=== PATIENT | female | born 2000 | race Hispanic/Latino ===

== ENCOUNTER 2018-04-16 21:59 | Emergency (ER) | payer SELFPAY ==
--- OUTSIDE RECORDS SUMMARY | 2018-04-16 22:02 | XMS REPORT | Clinical Summary ---
:2000 Author Organization [facility] Address [address] [place] [id number] Care Team Providers Name Role Phone Mary Anne Austin MD Primary Care Provider Allergies No Known Allergies Medications Medication Sig Dispensed Refills Start Date End Date Status levETIRAcetam Take 1,000 mg 0 Active (KEPPRA) 500 MG by mouth tablet every morning. topiramate (TOPAMAX) Take 300 mg 0 Active 100 MG tablet by mouth 2 (two) times a day. levETIRAcetam Take 1,500 mg 0 Active (KEPPRA) 500 MG by mouth tablet every evening. carBAMazepine XR Take 200 mg 0 07/06/2017 Discontinued (TEGretol XR) 200 by mouth 2 MG 12 hr tablet (two) times a day. ciprofloxacin Take 1 tablet 14 tablet 0 08/31/2017 09/07/2017 (CIPRO) 500 MG (500 mg tablet total) by mouth 2 (two) times a day for 7 days. Active Problems Not on file Encounters Date Type Specialty Care Team Description 02/23/2018 - Emergency Emergency Medicine Manoj Carlson MD Seizure (HCC ) 02/24/2018 (Primary Dx) 02/01/2018 Emergency Emergency Medicine Ezequiel Campos, Recurrent seizures DO (HCC) (Primary Dx) 01/18/2018 Emergency Emergency Medicine Zak Cormier Seizure ( Primary Dx) B., DO 12/16/2017 Emergency Emergency Medicine Garrick Jay Seizures ( Primary Dx) MD Boby 12/10/2017 - Emergency Emergency Medicine Marquise Nazario Seizure disorder 12/11/2017 Nahun Lea MD (Primary Dx) 08/30/2017 - Emergency Emergency Medicine Tyree Hurt MD Seizure ( Primary Dx); 08/31/2017 Acute cystitis without hematuria 07/13/2017 Emergency Emergency Medicine Zak Villegas Breakthrough seizure MD [place] (Primary Dx) 07/06/2017 - Emergency Emergency Medicine Brody Canela MD Seizure ( Primary Dx) 07/07/2017 after 04/15/2017 Social History Tobacco Use Types Packs/Day Years Used Date Never Smoker Smokeless Tobacco: Never Used Alcohol Use Drinks/Week oz/Week Comments No Sex Assigned at Date Recorded Not on file Job Start Date Occupation Industry Not on file Not on file Not on file Travel History Travel Start Travel End No recent travel history available. Last Filed Vital Signs Vital Sign Reading Time Taken Blood Pressure 95/51 02/23/2018 11:39 PM CDT Pulse 85 02/23/2018 11:39 PM CDT Temperature 36.2 C (97.1 F) 02/23/2018 11:39 PM CDT Respiratory Rate 16 02/23/2018 11:39 PM CDT Oxygen Saturation 99% 02/23/2018 11:39 PM CDT Inhaled Oxygen Concentration - - Weight 68.5 kg (151 lb) 02/23/2018 9:20 PM CDT Height 160 cm (5' 3") 02/23/2018 9:20 PM CDT Body Mass Index 26.75 02/23/2018 9:20 PM CDT Plan of Treatment Health Maintenance Due Date Last Done Comments CHLAMYDIA SCREENING 2014 INFLUENZA VACCINE 11/25/2017 05/30/2015 Procedures Procedure Name Priority Date/Time Associated Comments Diagnosis ESTIMATED GFR STAT 02/23/2018 10:50 Results for this PM CDT procedure are in the results section. BASIC METABOLIC PANEL STAT 02/23/2018 10:50 Results for this PM CDT procedure are in the results section. ECG 12-LEAD STAT 02/01/2018 10:24 Results for this PM CDT procedure are in the results section. ECG ED PRELIMINARY Routine 02/01/2018 10:15 Results for this INTERPRETATION PM CDT procedure are in the results section. ESTIMATED GFR STAT 01/18/2018 11:53 Results for this AM CDT procedure are in the results section. CREATINE KINASE, TOTAL STAT 01/18/2018 11:53 Results for this (CPK) AM CDT procedure are in the results section. BASIC METABOLIC PANEL STAT 01/18/2018 11:53 Results for this AM CDT procedure are in the results section. HC COMPLETE BLD COUNT STAT 01/18/2018 11:53 Results for this W/AUTO DIFF AM CDT procedure are in the results section. HCG QUALITATIVE, URINE STAT 12/16/2017 11:43 Results for this SCREEN AM CDT procedure are in the results section. URINALYSIS SCREEN AND STAT 12/16/2017 11:43 Results for this MICROSCOPY, WITH REFLEX AM CDT procedure are in TO CULTURE the results section. URINE CULTURE STAT 12/16/2017 11:43 Results for this AM CDT procedure are in the results section. ZZESTIMATED GFR STAT 12/16/2017 11:38 Results for this AM CDT procedure are in the results section. LIPASE LEVEL STAT 12/16/2017 11:38 Results for this AM CDT procedure are in the results section. LACTIC ACID LEVEL, STAT 12/16/2017 11:38 Results for this SEPSIS - NOW AND REPEAT AM CDT procedure are in 2X EVERY 3 HOURS the results section. HEPATIC FUNCTION PANEL STAT 12/16/2017 11:38 Results for this AM CDT procedure are in the results section. BASIC METABOLIC PANEL STAT 12/16/2017 11:38 Results for this AM CDT procedure are in the results section. HC COMPLETE BLD COUNT STAT 12/16/2017 11:38 Results for this W/AUTO DIFF AM CDT procedure are in the results section. HCG QUALITATIVE, URINE Routine 12/10/2017 10:59 Results for this SCREEN PM CDT procedure are in the results section. URINALYSIS SCREEN AND Routine 12/10/2017 10:59 Results for this MICROSCOPY, WITH REFLEX PM CDT procedure are in TO CULTURE the results section. GRAM STAIN Routine 12/10/2017 10:59 Results for this PM CDT procedure are in the results section. URINE CULTURE Routine 12/10/2017 10:59 Results for this PM CDT procedure are in the results section. XR CHEST 1 VW PORTABLE STAT 12/10/2017 10:16 Results for this PM CDT procedure are in the results section. ECG 12-LEAD STAT 12/10/2017 9:55 Results for this PM CDT procedure are in the results section. ECG ED PRELIMINARY Routine 12/10/2017 9:44 Results for this INTERPRETATION PM CDT procedure are in the results section. ZZESTIMATED GFR STAT 12/10/2017 9:38 Results for this PM CDT procedure are in the results section. B NATRIURETIC PEPTIDE STAT 12/10/2017 9:38 Results for this PM CDT procedure are in the results section. TROPONIN STAT 12/10/2017 9:38 Results for this PM CDT procedure are in the results section. COMPREHENSIVE METABOLIC STAT 12/10/2017 9:38 Results for this PANEL PM CDT procedure are in the results section. HC COMPLETE BLD COUNT STAT 12/10/2017 9:38 Results for this W/AUTO DIFF PM CDT procedure are in the results section. URINALYSIS, AUTOMATED STAT 08/30/2017 11:54 Results for this WITH MICROSCOPY PM CDT procedure are in the results section. ZZESTIMATED GFR STAT 08/30/2017 10:30 Results for this PM CDT procedure are in the results section. HCG QUANTITATIVE, SERUM STAT 08/30/2017 10:30 Results for this PM CDT procedure are in the results section. COMPREHENSIVE METABOLIC STAT 08/30/2017 10:30 Results for this PANEL PM CDT procedure are in the results section. HC COMPLETE BLD COUNT STAT 08/30/2017 10:30 Results for this W/AUTO DIFF PM CDT procedure are in the results section. GFR CALCULATION STAT 08/30/2017 10:20 Results for this PM CDT procedure are in the results section. HCG QUALITATIVE, URINE Routine 07/13/2017 10:34 Results for this SCREEN AM CDT procedure are in the results section. URINALYSIS SCREEN AND Routine 07/13/2017 10:34 Results for this MICROSCOPY, WITH REFLEX AM CDT procedure are in TO CULTURE the results section. GRAM STAIN Routine 07/13/2017 10:34 Results for this AM CDT procedure are in the results section. URINE CULTURE Routine 07/13/2017 10:34 Results for this AM CDT procedure are in the results section. ZZESTIMATED GFR STAT 07/13/2017 10:11 Results for this AM CDT procedure are in the results section. MAGNESIUM LEVEL STAT 07/13/2017 10:11 Results for this AM CDT procedure are in the results section. COMPREHENSIVE METABOLIC STAT 07/13/2017 10:11 Results for this PANEL AM CDT procedure are in the results section. GFR CALCULATION STAT 07/13/2017 9:53 Results for this AM CDT procedure are in the results section. POC GLUCOSE Routine 07/07/2017 12:25 Results for this AM CDT procedure are in the results section. HCG QUALITATIVE, URINE Routine 07/06/2017 11:55 Results for this SCREEN PM CDT procedure are in the results section. URINALYSIS SCREEN AND Routine 07/06/2017 11:55 Results for this MICROSCOPY, WITH REFLEX PM CDT procedure are in TO CULTURE the results section. URINE CULTURE STAT 07/06/2017 11:55 Results for this PM CDT procedure are in the results section. GRAM STAIN STAT 07/06/2017 11:55 Results for this PM CDT procedure are in the results section. ECG 12-LEAD STAT 07/06/2017 11:47 Results for this PM CDT procedure are in the results section. ECG ED PRELIMINARY Routine 07/06/2017 11:22 Results for this INTERPRETATION PM CDT procedure are in the results section. after 04/15/2017 Results Estimated GFR (02/23/2018 10:50 PM CDT)Only the most recent of2 resultswithin the time period is included. Estimated GFR >=90 mL/min/1.73 m2 [facility] Comment: PATHOLOGY AND GENOMIC CatergoryUnitsInterpretation MEDICINE G1 >=90 Normal or high G2 60-89Mildly decreased [id number] to moderately decreased [id number] to severely decreased G4 15-29Severely decreased G5 <15Kidney failure The eGFR was calculated using the Chronic Kidney Disease Epidemiology Collaboration (CKD-EPI) equation. Interpretation is based on recommendations of the National Kidney Foundation-Kidney Disease Outcomes Quality Initiative (NKF-KDOQI) published in 2014. Specimen Plasma specimen Performing Organization Address City/State/Zipcode Phone Number [facility] AND [facility] [place] [address] [facility] Basic metabolic panel (02/23/2018 10:50 PM CDT)Only the most recent of3 resultswithin the time period is included. Sodium 142 135 - 150 mEq/L [facility] AND GENOMIC MEDICINE Potassium 3.2 (L) 3.5 - 5.0 mEq/L [facility] AND GENOMIC MEDICINE Chloride 109 98 - 112 mEq/L [facility] AND GENOMIC MEDICINE CO2 22 (L) 24 - 31 mmol/L [facility] AND GENOMIC MEDICINE Anion gap 11@ANIO 7 - 15 mEq/L [facility] AND GENOMIC MEDICINE BUN 13 7 - 18 mg/dL [facility] AND GENOMIC MEDICINE Creatinine 0.60 0.50 - 0.90 mg/dL [facility] AND GENOMIC MEDICINE Glucose 100 65 - 100 mg/dL [facility] AND GENOMIC MEDICINE Calcium 8.5 8.3 - 10.2 mg/dL [facility] AND GENOMIC MEDICINE Specimen Plasma specimen Performing Organization Address City/[facility] Phone Number [facility] AND [address] [place] [id number] [facility] ECG 12 lead (02/01/2018 10:24 PM CDT)Only the most recent of3 resultswithin the time period is included. Ventricular rate 117 [facility] Atrial rate 117 [facility] NH interval 152 [facility] QRSD interval 88 [facility] QT interval 328 [facility] QTC interval 457 [facility] P axis 1 58 [facility] QRS axis 1 12 [facility] T wave axis 48 [facility] EKG impression Sinus tachycardia-Possible Left atrial enlargement-RSR' or QR pattern in V1 suggests right ventricular conduction delay-Borderline ECG-In automated comparison with ECG of 10-DEC-2017 21:55,-No significa [facility]USE nt change was found- Performing Organization Address [facility] Phone Number [facility] MUSE [address] [place] [address] ECG ED Preliminary Interpretation - NOT AN ORDER (02/01/2018 10:15 PM CDT)Only the most recent of3 resultswithin the time period is included. Narrative Performed At Ezequiel Campos DO 02/01/2018 11:39 PM ECG ED Preliminary Interpretation - Not an Order Performed by: EZEQUIEL CAMPOS Authorized by: EZEQUIEL CAMPOS ECG reviewed by ED Physician in the absence of a stockholder: yes Interpretation: Interpretation: abnormal Rate: ECG rate:117 ECG rate assessment: tachycardic Rhythm: Rhythm: sinus tachycardia Ectopy: Ectopy: none QRS: QRS axis:Normal Conduction: Conduction: normal ST segments: ST segments:Normal T waves: T waves: normal CBC with platelet and differential (01/18/2018 11:53 AM CDT)Only the most recent of4 resultswithin the time period is included. WBC 6.3 4.5 - 12.5 k/uL [facility]OMIC MEDICINE RBC 4.90 4.04 - 5.86 m/uL [facility] GENOMIC MEDICINE HGB 13.4 11.5 - 15.3 g/dL [facility] AND GENOMIC MEDICINE HCT 41.0 34.0 - 45.0 % [facility] AND GENOMIC MEDICINE MCV 83.7 80.0 - 98.0 fL [facility] AND GENOMIC MEDICINE MCH 27.3 27.0 - 34.0 pg [facility] AND GENOMIC MEDICINE MCHC 32.7 31.5 - 36.5 g/dL [facility] AND GENOMIC MEDICINE RDW - SD 39.4 37.0 - 51.0 fL [facility] AND GENOMIC MEDICINE MPV 11.1 (H) 7.4 - 10.4 fL [facility] AND GENOMIC MEDICINE Platelet count 224 150 - 400 k/uL [facility] AND GENOMIC MEDICINE Nucleated RBC 0.00 /100 WBC [facility] AND GENOMIC MEDICINE Neutrophils 60.8 36.0 - 66.0 % [facility] AND GENOMIC MEDICINE Lymphocytes 25.0 24.0 - 44.0 % [facility] AND GENOMIC MEDICINE Monocytes 8.0 (H) 0.0 - 6.0 % [facility] AND GENOMIC MEDICINE Eosinophils 4.8 0.0 - 6.0 % [facility] AND GENOMIC MEDICINE Basophils 1.1 0.0 - 1.2 % [facility] AND GENOMIC MEDICINE Immature granulocytes 0.3 0.0 - 1.0 % [facility] AND GENOMIC MEDICINE Specimen Blood Performing Organization Address City/State/Zipcode Phone Number [facility] AND [address] [place] [address] [facility] Creatine kinase, total (CPK) (01/18/2018 11:53 AM CDT) Creatine kinase 61 26 - 192 U/L [facility] AND GENOMIC MEDICINE Specimen Plasma specimen Performing Organization Address City/State/Zipcode Phone Number [facility] OF PATHOLOGY AND [address] [place] [address] [facility] Urinalysis screen and microscopy, with reflex to culture (12/16/2017 11:43 AM CDT)Only the most recent of4 resultswithin the time period is included. Specimen site Clean catch [facility] AND GENOMIC MEDICINE Color, UA Yellow [facility] AND GENOMIC MEDICINE Appearance, UA Clear [facility] AND GENOMIC MEDICINE Specific gravity, UA 1.023 1.001 - 1.035 [facility] AND GENOMIC MEDICINE pH, UA 6.0 5.0 - 8.5 [facility] AND GENOMIC MEDICINE Protein, UA Negative Negative [facility] AND GENOMIC MEDICINE Glucose, UA Negative Negative [facility] AND GENOMIC MEDICINE Ketones, UA Negative Negative [facility]OLOGY AND GENOMIC MEDICINE Bilirubin, UA Negative Negative [facility]OLOGY AND GENOMIC MEDICINE Blood, UA Negative Negative [facility]Y AND GENOMIC MEDICINE Nitrite, UA Negative Negative [facility] AND GENOMIC MEDICINE Urobilinogen, UA Negative <2.0 [facility] AND GENOMIC MEDICINE Leukocyte esterase, UA Negative Negative [facility]OLOGY AND GENOMIC MEDICINE Epithelial cells, UA Few /HPF [facility] AND GENOMIC MEDICINE WBC, UA 2 0 - 5 /HPF [facility]OLOGY AND GENOMIC MEDICINE RBC, UA <1 0 - 5 /HPF [facility]OLOG[facility] AND GENOMIC MEDICINE Bacteria, UA None seen None seen [facility]OLOGY AND GENOMIC MEDICINE Yeast, UA None seen [facility]OLOGY AND GENOMIC MEDICINE Yeast with pseudohyphae, UA None seen [facility]OLOGY AND GENOMIC MEDICINE Specimen Urine Narrative Performed At CALLED TO OSMANY MOCTEZUMA [facility] AND GENOMIC @[id number] [facility] ?Specimen must be received in the laboratory within 2 hours of ?collection. ?Specimen Source->Urine Performing Organization Address City/State/Zipcode Phone Number [facility]Y AND [address] [place] [address] [facility] hCG qualitative, urine screen (12/16/2017 11:43 AM CDT)Only the most recent of4 resultswithin the time period is included. hCG qualitative, urine Negative Negative [facility] Comment: PATHOLOGY AND GENOMIC The manufacturers stated sensitivity of HcG test for serum is >/=10 MEDICINE mIU/ml and urine is >/=20mIU/ml. Specimen Urine Narrative Performed At CALLED TO OSMANY MOCTEZUMA [facility]OLOGY AND GENOMIC @12: [facility] ?Specimen must be received in the laboratory within 2 hours of ?collection. ?Specimen Source->Urine Performing Organization Address City/[facility]/Zipcode Phone Number [facility]Y AND [address] [place], [place] [phone] [place] [address] Urine culture (12/16/2017 11:43 AM CDT)Only the most recent of4 resultswithin the time period is included. Urine culture SEE COMMENTComment: Bacteriuria [facility] PATHOLOGY screen negative. AND GENOMIC MEDICINE Narrative Performed At CALLED TO OSMANY MOCTEZUMA [facility] AND GENOMIC @12: [facility] ?Specimen must be received in the laboratory within 2 hours of ?collection. ?Specimen Source->Urine Performing Organization Address City/[facility]/Zipcode Phone Number [facility]OLOGY AND [address] [place], [place] [phone] [place] [address] Lactic acid level, SEPSIS - Now and repeat 2x every 3 hours (12/16/2017 11:38 AM CDT) Lactic acid 2.2 0.5 - 2.2 mmol/L [facility] AND GENOMIC MEDICINE Specimen Blood Performing Organization Address City/[facility]/Zipcode Phone Number [facility]OLOGY AND [address] [place] [address] [facility] Estimated GFR (12/16/2017 11:38 AM CDT)Only the most recent of4 resultswithin the time period is included. GFR Non Af Amer >90 mL/min/1.73 m2 [facility] AND GENOMIC MEDICINE GFR Af Amer >90 mL/min/1.73 m2 [facility] Comment: PATHOLOGY AND GENOMIC Chronic kidney disease: <60 mL/min/1.73m2 MEDICINE Kidney failure: <15 mL/min/1.73m2 The estimated GFR is calculated from the IDMS-traceable Modification of Diet in Renal Disease Equation. The accuracy of the calculation is poor when the creatinine is normal. Calculated values >90 mL/min/1.73m2 are not reported. This equation has not been validated in children (<18 years), women, the elderly (>70 years), or ethnic groups other than Caucasians and Americans. Specimen Plasma specimen Performing Organization Address City/[facility] Phone Number [facility] AND [address] [facility] [address] [place] [address] [facility] Lipase level (12/16/2017 11:38 AM CDT) Lipase 27 13 - 60 U/L [facility]OLOGY AND GENOMIC MEDICINE Specimen Plasma specimen Performing Organization Address [facility] Phone Number [facility]OLOGY AND [address] [place] [address] [facility] Hepatic function panel (12/16/2017 11:38 AM CDT) Albumin 3.9 3.5 - 5.0 g/dL [facility]OLOGY AND GENOMIC MEDICINE Total bilirubin 0.3 0.2 - 1.2 mg/dL [facility]OLOGY AND GENOMIC MEDICINE Bilirubin direct <0.2 0.0 - 0.4 mg/dL [facility]OLOGY AND GENOMIC MEDICINE Alkaline phosphatase 74 0 - 104 U/L [facility]OLOGY AND GENOMIC MEDICINE Protein 7.4 6.3 - 8.3 g/dL [facility] AND GENOMIC MEDICINE ALT 13 5 - 50 U/L [facility]OLOGY AND GENOMIC MEDICINE AST 17 10 - 35 U/L [facility]OLOGY AND GENOMIC MEDICINE Specimen Plasma specimen Performing Organization Address [facility] Phone Number [facility]Y AND [address] [facility] [address] [place] [address] [facility] Gram stain (12/10/2017 10:59 PM CDT)Only the most recent of3 resultswithin the time period is included. Gram stain result No WBC's or organisms seen. [facility] DEPARTMENT OF PATHOLOGY Comment: AND GENOMIC MEDICINE Specimen Information Specimen Source: Urine Specimen Site: Clean catch Specimen Urine Performing Organization Address City/[facility]/Zipcode Phone Number [facility] DEPARTMENT OF PATHOLOGY AND [address] [place] [address] GENOMIC MEDICINE XR Chest 1 Vw Portable (12/10/2017 10:16 PM CDT) Narrative Performed At EXAMINATION:XR CHEST 1 VW PORTABLE [facility] CLINICAL HISTORY:seizure COMPARISON:04/11/2014 IMPRESSION: Mild prominence of pulmonary interstitial lung markings is suspicious for mild edema or atypical infection. No effusions or pneumothorax. Cardiomediastinal silhouette is within normal limits. No acute osseous abnormalities. [facility]-[id number] Procedure Note Hm Interface, Radiology Results Incoming - 12/10/2017 10:28 PM CDT EXAMINATION: XR CHEST 1 VW PORTABLE CLINICAL HISTORY: seizure COMPARISON: 04/11/2014 IMPRESSION: Mild prominence of pulmonary interstitial lung markings is suspicious for mild edema or atypical infection. No effusions or pneumothorax. Cardiomediastinal silhouette is within normal limits. No acute osseous abnormalities. [facility]-[id number] Performing Organization Address City/[facility]/Zipcode Phone Number [facility] [address] [place] [address] Troponin (12/10/2017 9:38 PM CDT) Troponin <0.30 0.00 - 0.30 ng/mL [facility]OLOGY Comment: AND GENOMIC MEDICINE 0.11 - 1.49 ng/mlMay indicate increased risk of acute coronary syndrome. >=1.5 ng/mlConsistent with acute myocardial infarction. The diagnostic value of a single normal or non-diagnostic result is questionable.Serial samples at 2-6 hour intervals are required to rule out acute myocardial injury. Specimen Plasma specimen Performing Organization Address [facility] Phone Number [facility] OF PATHOLOGY AND [address] [place] [address]. [place], [place] [id number] [place] [address] B natriuretic peptide (12/10/2017 9:38 PM CDT) BNP 9 0 - 100 pg/mL [facility]OM[facility] MEDICINE Specimen Blood Performing Organization Address [facility] Cent[facility]ode Phone Number [facility] AND [address] [place] [address]. [place], [place] [id number] [place] [address] Comprehensive metabolic panel (12/10/2017 9:38 PM CDT)Only the most recent of3 resultswithin the time period is included. Sodium 143 135 - 150 mEq/L [facility]IC[facility] Potassium 3.7 3.5 - 5.0 mEq/L [facility]IC[facility] Chloride 110 98 - 112 mEq/L [facility]IC[facility] CO2 18 (L) 24 - 31 mmol/L [facility] GENOMIC MEDICINE Anion gap 15@ANIO 7 - 15 mEq/L [facility]IC[facility] BUN 7 7 - 18 mg/dL [facility]ICINE Creatinine 0.60 0.50 - 0.90 mg/dL [facility]ICINE Glucose 101 (H) 65 - 100 mg/dL [facility]ICINE Calcium 8.9 8.3 - 10.2 mg/dL [facility] MEDICINE Protein 7.1 6.3 - 8.3 g/dL [facility] MEDICINE Albumin 3.7 3.5 - 5.0 g/dL [facility]OM[facility] MEDICINE A/G ratio 1.1 0.7 - 3.8 [facility] MEDICINE Alkaline phosphatase 74 0 - 104 U/L [facility]OM[facility] MEDICINE AST 15 10 - 35 U/L [facility]OMIC MEDICINE ALT 11 5 - 50 U/L [facility] GENOMIC MEDICINE Total bilirubin <0.3 0.2 - 1.2 mg/dL [facility]OMIC MEDICINE Specimen Plasma specimen Performing Organization Address City/State/Zipcode Phone Number [facility] AND [facility] [place] [address] [facility] Urinalysis, automated with microscopy (08/30/2017 11:54 PM CDT) Color, UA Yellow [facility] DEPARTMENT OF PATHOLOGY AND GENOMIC MEDICINE Appearance, UA Slightly-Cloudy [facility] DEPARTMENT OF PATHOLOGY AND GENOMIC MEDICINE Specific gravity, UA 1.019 1.001 - 1.035 [facility] DEPARTMENT OF PATHOLOGY AND GENOMIC MEDICINE pH, UA 6.0 5.0 - 8.5 [facility] DEPARTMENT OF PATHOLOGY AND GENOMIC MEDICINE Protein, UA Negative Negative [facility] DEPARTMENT OF PATHOLOGY AND GENOMIC MEDICINE Glucose, UA Negative Negative [facility] DEPARTMENT OF PATHOLOGY AND GENOMIC MEDICINE Ketones, UA Negative Negative [facility] DEPARTMENT OF PATHOLOGY AND GENOMIC MEDICINE Bilirubin, UA Negative Negative [facility] DEPARTMENT OF PATHOLOGY AND GENOMIC MEDICINE Blood, UA Negative Negative [facility] DEPARTMENT OF PATHOLOGY AND GENOMIC MEDICINE Nitrite, UA Negative Negative [facility] DEPARTMENT OF PATHOLOGY AND GENOMIC MEDICINE Urobilinogen, UA Negative <2.0 [facility] DEPARTMENT OF PATHOLOGY AND GENOMIC MEDICINE Leukocyte esterase, UA Trace (A) Negative [facility] DEPARTMENT OF PATHOLOGY AND GENOMIC MEDICINE Epithelial cells, UA Many /HPF [facility] DEPARTMENT OF PATHOLOGY AND GENOMIC MEDICINE Round epithelial cells, UA Few 0 - 1 /HPF [facility] DEPARTMENT OF PATHOLOGY AND GENOMIC MEDICINE WBC, UA 11-20 (H) 0 - 4 /HPF [facility] DEPARTMENT OF PATHOLOGY AND GENOMIC MEDICINE RBC, UA 6-10 (H) 0 - 5 /HPF [facility] DEPARTMENT OF PATHOLOGY AND GENOMIC MEDICINE Bacteria, UA Trace None seen [facility] DEPARTMENT OF PATHOLOGY AND GENOMIC MEDICINE Yeast, UA None seen [facility] DEPARTMENT OF PATHOLOGY AND GENOMIC MEDICINE Yeast with pseudohyphae, UA None seen [facility] DEPARTMENT OF PATHOLOGY AND GENOMIC MEDICINE Specimen Urine Performing Organization Address [facility] Centerconm Phone Number [facility] DEPARTMENT OF PATHOLOGY AND [id number] [place] [address] [address] [place] [place] hCG quantitative, serum (08/30/2017 10:30 PM CDT) hCG quantitative, serum <0 0 - 5 mIU/mL [facility] DEPARTMENT OF Comment: PATHOLOGY AND GENOMIC Reference range for HCG Quant applies to males and non- MEDICINE females. Post Menopausal 0.0 - 8.1 mIU/mL Specimen Plasma specimen Performing Organization Address [facility] Centercode Phone Number [facility] DEPARTMENT OF PATHOLOGY AND [id number] [place] [address] [place] [address] [facility] GFR calculation (08/30/2017 10:20 PM CDT)Only the most recent of2 resultswithin the time period is included. GFR calculation See BelowComment: GFR not [facility] DEPARTMENT OF PATHOLOGY valid on patients less than AND [facility] 18 years of age. Specimen Plasma specimen Performing Organization Address City/[facility] Centercode Phone Number [facility] DEPARTMENT OF PATHOLOGY AND [id number] [place] [address] [place] [address] [facility] Magnesium level (07/13/2017 10:11 AM CDT) Magnesium 2.20 1.60 - 2.40 mg/dL [facility]OMIC MEDICINE Specimen Plasma specimen Performing Organization Address City/[facility] Centercode Phone Number [facility]Y AND [address] [place] [address] [facility] POC glucose (07/07/2017 12:25 AM CDT) POC glucose 130 (H) 65 - 100 mg/dL [facility]OLOGY Comment: AND GENOMIC MEDICINE Meter ID: [id number] Continuing Education Instructor: Xavier Womack Performing Organization Address City/State/Zipcode Phone Number [facility] OF [facility]OLOGY AND [facility] [place] [address] GENOMIC MEDICINE after 04/15/2017 Advance Directives Patient has advance care planning documents on file. For more information, please contact:Vinny Crow[address] [place] [id number]
--- OUTSIDE RECORDS SUMMARY | 2018-04-16 22:03 | XMS REPORT ---
:2000 Author Organization [facility] Address Unavailable , Allergies, Adverse Reactions, Alerts Allergy Name Reaction Description Start Date Severity Status Provider No Known Allergies Myla Wallace PMHNP Conditions or Problems Problem Name Problem Onset Status Entry Provider Comment Standard Annotate Code Date Date Description BMI Active Bessy Body Mass 26.0-26.9 / Isak MACK Index (res) 26.0-26.9, adult Overweight Active Bessy Overweight / Isak MACK (res) Seizure 780.39 Active Bessy Other disorder / Isak MACK convulsions (res) Viral 079.99 Active Bessy Unspecified syndrome / Isak MACK viral (res) infection ANXIETY Active Myla Anxiety DISORDER, / Wallace disorder in D/T ANOT MED PMHNP conditions COND classified elsewhere PANIC Inactive Myla Panic DISORDER / 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 PANIC DISORDER Inactive Myla Wallace PMHNP Medication List Medication Instructions Start Stop Generic NDC Status Provider Patient Date Date Name Instruction GABAPENTIN Take 1 GABAPENTIN 39211535750 Active Myla Active 300 MG ORAL tablet By Wallace CAPSULE Mouth BID PMHNP ONDANSETRON 1 tab By 2 ONDANSETRON 76247231163 Active Bessy Active HCL 4 MG ORAL Mouth q6h 0 HCL Isak MACK TABLET As Needed 1 (res) nausea 8 / 1 1 / 0 9 TEMAZEPAM 15 Take 1 TEMAZEPAM 34596512232 Active Myla Active MG ORAL tablet By Wallace CAPSULE Mouth QHS PMHNP As Needed for insomnia KEPPRA 1000 BID LEVETIRACETAM 85664323122 Active Myla Active MG ORAL Wallace TABLET PMHNP TOPAMAX 300 mg TOPIRAMATE 50475600673 Active Myla Active TABLET BID TABS Wallace PMHNP ATIVAN 0.5 MG Take 1 LORAZEPAM 24139519815 Active Myla Active ORAL TABLET tablet By Wallace Mouth BID PMHNP As Needed for anxiety Vital Signs Date Name Value Unit Range Description blood pressure, diastolic 72 mm[Hg] BP gay blood pressure, systolic 99 mm[Hg] BP sys height E&M 64 [in_us] Bdy height pulse rate E&M 85 /min Heart rate weight E&M 154 [lb_av] Weight Measured blood pressure, diastolic 67 mm[Hg] BP gay blood pressure, systolic 93 mm[Hg] BP sys height E&M 64 [in_us] Bdy height pulse rate E&M 115 /min Heart rate respiratory rate E&M 20 /min Resp rate temperature E&M 98.3 [degF] Body temperature weight E&M 151.40 [lb_av] Weight Measured blood pressure, diastolic 73 mm[Hg] BP gay blood pressure, systolic 104 mm[Hg] BP sys height E&M 64 [in_us] Bdy height pulse rate E&M 78 /min Heart rate weight E&M 153.40 [lb_av] Weight Measured blood pressure, diastolic 75 mm[Hg] BP gay blood pressure, systolic 113 mm[Hg] BP sys height E&M 64 [in_us] Bdy height pulse rate E&M 98 /min Heart rate weight E&M 145.40 [lb_av] Weight Measured blood pressure, diastolic 70 mm[Hg] BP gay blood pressure, systolic 104 mm[Hg] BP sys height E&M 64 [in_us] Bdy height pulse rate E&M 90 /min Heart rate weight E&M 147.40 [lb_av] Weight Measured Encounters Date Encounter Provider Code Facility Est Patient Exp Myla Wallace CPT-27104 [facility] 13:55:59 CDT Problem - 94098 PMHNP Behavioral [facility] Est Patient Exp Bessy Parisi MD CPT-55960 [facility] 11:46:05 CDT Problem - 42978 (res) Practice Est Patient Exp Myla Wallace CPT-15825 [facility] 10:59:44 CDT Problem - 74858 PMHNP Behavioral Health Est Patient Exp Myla Wallace CPT-59828 [facility] 17:38:22 CDT Problem - 58571 PMHNP Behavioral Health Procedures Code Procedure Name Date Entry Date Standard Description [id number] Diagnostic evaluation with medical - 69188 11:57:40 CDT
[2018-04-16 22:33] LABS: Absolute Lymphocytes (CBC) 2.1 K/uL (0.7-4.9); Absolute Monocytes 0.6 K/uL (0.1-1.3); Absolute Neutrophil 5.5 K/uL (1.8-8.0); Basophils % 0.7 % (0-1.3); Eosinophils % 3.6 % (0-4.4); Hematocrit 38.3 % (36.0-45.0); Lymphocytes % 24.8 % (15.3-44.8); MPV 9.2 fL (7.6-11.3); Monocytes % 6.6 % (3.3-12.3)
[2018-04-16 22:40] LABS: Protime INR 1.06
[2018-04-16 22:50] LABS: ALT/SGPT 17 U/L (12-78); AST/SGOT 6 U/L (15-37); Albumin 3.6 g/dL (3.4-5.0); Alkaline Phosphatase 83 U/L (45-117); BUN Blood Urea Nitrogen 13 mg/dL (7-18); Bicarbonate 21 mmol/L (21-32); Bilirubin Direct 0.1 mg/dL (0-0.2); Bilirubin Total 0.3 mg/dL (0.2-1.0); Glucose Level 103 mg/dL (74-106); Potassium 3.5 mmol/L (3.5-5.1); Protein, Total 7.1 g/dL (6.4-8.2); Sodium Level 143 mmol/L (136-145)
[2018-04-17 00:41] LABS: Barbiturates NEGATIVE (NEGATIVE); Benzodiazepines NEGATIVE (NEGATIVE); Cocaine NEGATIVE (NEGATIVE); METHAMPHETAM NEGATIVE (NEGATIVE); Methadone NEGATIVE (NEGATIVE); Opiates NEGATIVE (NEGATIVE); Phencyclidine NEGATIVE (NEGATIVE); THC Cannibis NEGATIVE (NEGATIVE)
[2018-04-17 00:41] LABS: Urine Blood NEGATIVE (NEG); Urine Glucose NEGATIVE (NEG); Urine Protein NEGATIVE (NEG); Urine Specific Gravity 1.015 (1.005-1.030)
--- NOTE | 2018-04-17 00:55 | ER ---
Nurse's Notes [facility] Name: Saloni Malin Age: 17 yrs Sex: Female : 2000 Arrival Date: 04/16/2018 Time: 22:00 Bed 7 Private MD: Diagnosis: Epilepsy and recurrent seizures Presentation: 04/16 22:01 Presenting complaint: EMS states: Pt had seizure 20 minutes [facility] FARM[facility], pt is currently post tl2 ictal, is AOx3 is slightly slow to respond but answers questions appropriately. Transition of care: patient was not received from another setting of care. Onset of symptoms was April 16, 2018 at 21:30. Risk Assessment: Do you want to hurt yourself or someone else? Patient reports no desire to harm self or others. Initial Sepsis Screen: Does the patient meet any 2 criteria? No. Patient's initial sepsis screen is negative. Does the patient have a suspected source of infection? No. Patient's initial sepsis screen is negative. Care prior to arrival: None. 22:01 Method Of Arrival: EMS: [facility] tl2 22:01 Acuity: KEVAN 3 tl2 Triage Assessment: 22:03 General: Appears in no apparent distress. comfortable, Behavior is calm, cooperative, tl2 appropriate for age. Pain: Denies pain. Neuro: Level of Consciousness is awake, alert, obeys commands, Oriented to person, place, time, situation. Cardiovascular: Denies chest pain. Respiratory: Airway is patent Respiratory effort is even, unlabored, Respiratory pattern is regular, symmetrical. GI: No signs and/or symptoms were reported involving the gastrointestinal system. : No signs and/or symptoms were reported regarding the genitourinary system. Derm: Skin is pink, warm \T\ dry. Historical: - Allergies: 22:03 No Known Allergies; tl2 - Home Meds: 22:15 Keppra Oral [Active]; Temazepam Oral [Active]; topiramate oral oral [Active]; tl2 gabapentin oral oral [Active]; - PMHx: 22:15 Seizures; Panic Attacks; tl2 - Immunization history:: Adult Immunizations up to date. - Social history:: Smoking status: Patient/guardian denies using tobacco. - Ebola Screening: : No symptoms or risks identified at this time. Screenin:05 Abuse screen: Denies threats or abuse. Nutritional screening: No deficits noted. tl2 Tuberculosis screening: No symptoms or risk factors identified. Fall Risk Gait- Impaired (20 pts.). Assessment: 22:03 General: see triage assessment. tl2 23:11 Reassessment: Patient appears in no apparent distress at this time. Patient and/or tl2 family updated on plan of care and expected duration. Pain level reassessed. Patient is alert, oriented x 3, equal unlabored respirations, skin warm/dry/pink. 04/17 00:23 Reassessment: Patient appears in no apparent distress at this time. Patient and/or tl2 family updated on plan of care and expected duration. Pain level reassessed. Patient is alert, oriented x 3, equal unlabored respirations, skin warm/dry/pink. 01:10 Reassessment: Patient appears in no apparent distress at this time. Patient and/or tl2 family updated on plan of care and expected duration. Pain level reassessed. Patient is alert, oriented x 3, equal unlabored respirations, skin warm/dry/pink. pt verbalized understanding of discharge instructions and need for follow up Patient states feeling better. Vital Signs: 04/16 22:03 BP 100 / 70; Pulse 121; Resp 18; Temp 99(O); Pulse Ox 100% on R/A; Weight 46.27 kg; tl2 Height 5 ft. 3 in. (160.02 cm); Pain 0/10; 23:10 BP 100 / 71; Pulse 91; Resp 18; Pulse Ox 97% on R/A; tl2 12 00:23 BP 92 / 56; Pulse 88; Resp 18; Pulse Ox 98% on R/A; tl2 01:10 BP 91 / 69; Pulse 82; Resp 18; Pulse Ox 97% on R/A; tl2 04/16 22:03 Body Mass Index 18.07 (46.27 kg, 160.02 cm) tl2 [place] Score: 04/16 22:03 Eye Response: spontaneous(4). Verbal Response: oriented(5). Motor Response: obeys tl2 commands(6). Total: 15. ED Course: 22:00 Patient arrived in ED. tl2 22:03 Triage completed. tl2 22:03 Arm band placed on right wrist. tl2 22:04 Henry Zee PA is PHCP. cp 22:04 Henry Hayes MD is Attending Physician. cp 22:05 Patient has correct armband on for positive identification. Bed in low position. Call tl2 light in reach. Side rails up X2. Seizure precautions initiated. 22:16 Inserted saline lock: 20 gauge in right antecubital area, using aseptic technique. tl2 Blood collected. placed by blanka Sheikh. 23:01 Acetaminophen Sent. mw2 23:01 Basic Metabolic Panel Sent. mw2 04/17 00:23 Makeda Tucker, RN is Primary Nurse. tl2 00:54 Teddy Ambrosio MD is Referral Physician. cp 01:10 No provider procedures requiring assistance completed. IV discontinued, intact, tl2 bleeding controlled, No redness/swelling at site. Pressure dressing applied. Administered Medications: No medications were administered Outcome: 00:55 Discharge ordered by MD. cp 01:10 Discharged to home ambulatory, with family. tl2 01:10 Condition: stable 01:10 Discharge instructions given to patient, family, Instructed on discharge instructions, follow up and referral plans. Demonstrated understanding of instructions, follow-up care. 01:12 Patient left the ED. tl2 Signatures: Henry Zee, MAYRA PA cp Makeda Tucker RN RN tl2 Giuliano Key mw2 Corrections: (The following items were deleted from the chart) 04/16 22:16 22:03 Home Meds: None; tl2 tl2 22:16 22:03 PMHx: None; tl2 tl2
--- NOTE | 2018-04-17 00:55 | EDPHYS ---
Physician Documentation [facility] Name: Saloni Malin Age: 17 yrs Sex: Female : 2000 Arrival Date: 04/16/2018 Time: 22:00 Bed 7 Private MD: ED Physician Henry Hayes HPI: 04/16 22:09 This 17 yrs old Female presents to ER via EMS with complaints of Probable Seizure. cp 22:10 The patient presents after having a single isolated seizure, that lasted 2 minute(s), cp the episode(s) was witnessed, by family, sister. Character of seizure(s): Loss of consciousness: the patient experienced loss of consciousness, Motor activity: generalized, shaking all over. Seizure onset: today, at 21:15. Context: occurred at home, occurred while the patient was in bathroom. Contributing factors: unknown. 22:10 Seizure Hx: Seizure medications: Keppra, topiramate. cp 22:10 Associated injury: The patient did not suffer any apparent associated injury. EMS care: cp none. Current symptoms: Currently, the patient is not experiencing any symptoms, no decreased level of consciousness. Historical: - Allergies: 22:03 No Known Allergies; tl2 - Home Meds: 22:15 Keppra Oral [Active]; Temazepam Oral [Active]; topiramate oral oral [Active]; tl2 gabapentin oral oral [Active]; - PMHx: 22:15 Seizures; Panic Attacks; tl2 - Immunization history:: Adult Immunizations up to date. - Social history:: Smoking status: Patient/guardian denies using tobacco. - Ebola Screening: : No symptoms or risks identified at this time. ROS: 22:13 Constitutional: Negative for body aches, chills, fever, poor PO intake. cp 22:13 Eyes: Negative for injury, pain, redness, and discharge. cp 22:13 ENT: Negative for drainage from ear(s), ear pain, sore throat, difficulty swallowing, difficulty handling secretions. 22:13 Cardiovascular: Negative for chest pain, edema, palpitations. 22:13 Respiratory: Negative for cough, shortness of breath, wheezing. 22:13 Abdomen/GI: Negative for abdominal pain, nausea, vomiting, and diarrhea. 22:13 Neuro: Positive for history of seizure, Negative for altered mental status. 22:13 All other systems are negative. Exam: 22:18 Constitutional: The patient appears in no acute distress, alert, awake, non-toxic, well cp developed, well nourished. 22:18 Head/Face: Normocephalic, atraumatic. cp 22:18 Eyes: Periorbital structures: appear normal, Pupils: equal, round, and reactive to light and accomodation, Extraocular movements: intact throughout, Conjunctiva: normal, no exudate, no injection, Sclera: no appreciated abnormality, Lids and lashes: appear normal, bilaterally. 22:18 ENT: External ear(s): are unremarkable, Ear canal(s): are normal, clear, TM's: bulging, is not appreciated, bilaterally, dullness, bilaterally, erythema, is not appreciated, bilaterally, Nose: is normal, Mouth: Lips: moist, Oral mucosa: pink and intact, moist, Posterior pharynx: is normal, airway is patent, no erythema, no exudate, Voice: is normal. 22:18 Neck: ROM/movement: is normal, is supple, without pain, no range of motions limitations, no meningismus, no nuchal rigidity. 22:18 Chest/axilla: Inspection: normal, Palpation: is normal, no crepitus, no tenderness. 22:18 Cardiovascular: Rate: tachycardic, Rhythm: regular, Edema: is not appreciated, JVD: is not appreciated. 22:18 Respiratory: the patient does not display signs of respiratory distress, Respirations: normal, no use of accessory muscles, no retractions, no splinting, no tachypnea, labored breathing, is not present, Breath sounds: are clear throughout, no decreased breath sounds, no stridor, no wheezing. 22:18 Abdomen/GI: Inspection: abdomen appears normal, Palpation: abdomen is soft and non-tender, in all quadrants. 22:18 Back: pain, is absent, ROM is normal. 22:18 Skin: cellulitis, is not appreciated, no rash present. 22:18 Neuro: Orientation: to person, place \T\ time. Mentation: is normal, Cerebellar function: is grossly normal, Motor: moves all fours, strength is normal, Sensation: is normal, seizure activity, is not displayed by the patient. 22:51 ECG was reviewed by the Attending Physician. cp Vital Signs: 22:03 BP 100 / 70; Pulse 121; Resp 18; Temp 99(O); Pulse Ox 100% on R/A; Weight 46.27 kg; tl2 Height 5 ft. 3 in. (160.02 cm); Pain 0/10; 23:10 BP 100 / 71; Pulse 91; Resp 18; Pulse Ox 97% on R/A; tl2 04/17 00:23 BP 92 / 56; Pulse 88; Resp 18; Pulse Ox 98% on R/A; tl2 01:10 BP 91 / 69; Pulse 82; Resp 18; Pulse Ox 97% on R/A; tl2 04/16 22:03 Body Mass Index 18.07 (46.27 kg, 160.02 cm) tl2 Cameron Coma Score: 04/16 22:03 Eye Response: spontaneous(4). Verbal Response: oriented(5). Motor Response: obeys tl2 commands(6). Total: 15. MDM: 22:04 Patient medically screened. cp 22:20 Differential diagnosis: cerebral vascular accident, drug overdose, cardiac arrhythmia, cp seizure. 04/17 00:52 Data reviewed: vital signs, nurses notes, lab test result(s), EKG. cp 00:52 Test interpretation: by ED physician or midlevel provider: ECG. Counseling: I had a cp detailed discussion with the patient and/or guardian regarding: the historical points, exam findings, and any diagnostic results supporting the discharge/admit diagnosis, lab results, the need for outpatient follow up, a neurologist, to return to the emergency department if symptoms worsen or persist or if there are any questions or concerns that arise at home. Response to treatment: the patient's symptoms have markedly improved after treatment, VSS. No seizure activity observed or reported while patient has been observed in ED. Will discharge to home for continued monitoring. 04/16 22:09 Order name: Acetaminophen cp 04/16 22:09 Order name: Basic Metabolic Panel cp 04/16 22:09 Order name: CBC with Diff; Complete Time: 23:59 cp 04/16 23:59 Interpretation: Normal except: MCV 79.8. cp 04/16 22:09 Order name: ETOH Level; Complete Time: 23:59 cp 04/16 22:09 Order name: Hepatic Function; Complete Time: 23:59 cp 04/17 00:00 Interpretation: Normal except: AST 6; A/G 1.0. cp 04/16 22:09 Order name: PT-INR; Complete Time: 23:59 cp 04/16 22:09 Order name: Ptt, Activated; Complete Time: 23:59 cp 04/16 22:09 Order name: Salicylate; Complete Time: 23:59 cp 04/16 22:09 Order name: Urine Drug Screen; Complete Time: 00:44 cp 04/16 22:09 Order name: EKG; Complete Time: 22:10 cp 04/16 22:10 Order name: Acetaminophen Level; Complete Time: 23:59 EDMS 04/16 22:10 Order name: Basic Metabolic Panel; Complete Time: 23:59 EDMS 04/17 00:23 Interpretation: Normal except: CL 115; CA 8.3. cp 04/17 00:28 Order name: Urine Dipstick--Ancillary (enter results); Complete Time: 00:44 gm 04/17 00:28 Order name: Urine --Ancillary (enter results); Complete Time: 00:44 gm 04/16 22:09 Order name: Urine Test (obtain specimen); Complete Time: 00:04 cp 04/16 22:09 Order name: EKG - Nurse/Tech; Complete Time: 22:44 cp 04/16 22:09 Order name: IV Saline Lock; Complete Time: 22:19 cp 04/16 22:09 Order name: Labs collected and sent; Complete Time: 22:19 cp 04/16 22:09 Order name: Urine Dipstick-Ancillary (obtain specimen); Complete Time: 00:04 cp EC/21 22:51 Rate is 104 beats/min. Rhythm is regular. DC interval is normal. QRS interval is cp normal. QT interval is normal. Interpreted by me. Reviewed by me. Administered Medications: No medications were administered Disposition: 04/17/18 00:55 Discharged to Home. Impression: Epilepsy and recurrent seizures. - Condition is Stable. - Discharge Instructions: Seizure, Adult. - Medication Reconciliation Form, Thank You Letter, Antibiotic Education, Prescription Opioid Use form. - Follow up: Teddy Ambrosio MD; When: 2 - 3 days; Reason: follow-up for seizure disorder. - Problem is an ongoing problem. - Symptoms have improved. Addendum: 04/27/2018 11:13 Co-signature as Attending Physician, Henry Hayes MD I agree with the assessment and c pantoja plan of care. Signatures: Dispatcher [employer] EDHenry Mendieta MD MD cha Page, Corey, PA PA cp Makeda Tucker, RN RN tl2 Corrections: (The following items were deleted from the chart) 04/16 22:16 22:03 Home Meds: None; tl2 tl2 22:16 22:03 PMHx: None; tl2 tl2 04/17 00:23 04/16 23:59 Normal except: CL 115. cp cp 04/17 01:12 00:55 04/17/2018 00:55 Discharged to Home. Impression: Epilepsy and recurrent seizures. tl2 Condition is Stable. Forms are Medication Reconciliation Form, Thank You Letter, Antibiotic Education, Prescription Opioid Use. Follow up: Teddy Ambrosio; When: 2 - 3 days; Reason: follow-up for seizure disorder. Problem is an ongoing problem. Symptoms have improved. cp
--- NOTE | 2018-04-17 16:09 | EKG ---
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
== END 2018-04-17 01:12 | disposition home or self-care (01) ==
LOC: ER 21:59
DX: G40.909 Epilepsy, unspecified, not intractable, without status epilepticus (principal); Z79.899 Other long term (current) drug therapy
CPT/HCPCS: 36415; 80048; 80076; 80307; 80320; 80329; 81003; 81025; 85025; 85610; 85730; 93005; 99284

== ENCOUNTER 2018-04-17 11:29 | Emergency (ER) | payer SELFPAY ==
--- OUTSIDE RECORDS SUMMARY | 2018-04-17 11:31 | XMS REPORT ---
:2000 Author Organization [facility] Address Unavailable , Allergies, Adverse Reactions, Alerts [...] Date Name Instruction GABAPENTIN Take 1 GABAPENTIN 06058032698 Active Myla Active 300 MG ORAL tablet By Wallace CAPSULE Mouth BID PMHNP ONDANSETRON 1 tab By 2 ONDANSETRON 53739599512 Active Bessy Active HCL 4 MG ORAL Mouth q6h 0 HCL Isak MACK TABLET As Needed 1 (res) nausea 8 / 1 1 / 0 9 TEMAZEPAM 15 Take 1 TEMAZEPAM 25107193352 Active Myla Active MG ORAL tablet By Wallace CAPSULE Mouth QHS PMHNP As Needed for insomnia KEPPRA 1000 BID LEVETIRACETAM 42995478125 Active Myla Active MG ORAL Wallace TABLET PMHNP TOPAMAX 300 mg TOPIRAMATE 38232986606 Active Myla Active TABLET BID TABS Wallace PMHNP ATIVAN 0.5 MG Take 1 LORAZEPAM 46133874901 Active Myla Active ORAL TABLET tablet By [...] Code Facility Est Patient Exp Myla Wallace CPT-96947 [place] 13:55:59 CDT Problem - 18732 [facility] Est Patient Exp Bessy Parisi MD CPT-42888 [facility] 11:46:05 CDT Problem - 17938 (res) Practice Est Patient Exp Myla Wallace CPT-75042 [place] 10:59:44 CDT Problem - 64789 [facility] Est Patient Exp Myla Wallace CPT-81495 [place] 17:38:22 CDT Problem - 31742 [facility] Procedures Code Procedure Name Date Entry Date Standard Description CPT-72081 Diagnostic evaluation with medical - 52333 11:57:40 CDT
--- OUTSIDE RECORDS SUMMARY | 2018-04-17 11:31 | XMS REPORT | Clinical Summary ---
:2000 Author Organization [employer] Address [address] [place] [id number] Care Team Providers Name Role Phone Mary [...] MD Seizure ( Primary Dx) 07/07/2017 after 04/16/2017 Social History Tobacco Use Types Packs/Day Years [...] procedure are in the results section. after 04/16/2017 Results Estimated GFR (02/23/2018 10:50 PM CDT)Only the most recent of2 resultswithin the time period is included. Estimated GFR >=90 mL/min/1.73 m2 [facility]PART[facility] OF Comment: PATHOLOGY AND GENOMIC CatergoryUnitsInterpretation MEDICINE G1 >=90 Normal or high G2 60-89Mildly decreased [id number] to moderately decreased S6o12-24Hflzwtlcha to severely decreased G4 15-29Severely decreased G5 <15Kidney failure The eGFR was calculated using the Chronic Kidney Disease Epidemiology Collaboration (CKD-EPI) equation. Interpretation is based on recommendations of the National Kidney Foundation-Kidney Disease Outcomes Quality Initiative (NKF-KDOQI) published in 2014. Specimen Plasma specimen Performing Organization Address City/State/Zipcode Phone Number [facility] DEPARTMENT OF [facility]OLOGY AND [facility] [place] [address] [employer] MEDICINE Basic metabolic panel (02/23/2018 10:50 PM CDT)Only the most recent of3 resultswithin the time period is included. Sodium 142 135 - 150 mEq/L [facility] DEPARTMENT OF PATHOLOGY AND GENOMIC MEDICINE Potassium 3.2 (L) 3.5 - 5.0 mEq/L [facility] DEPARTMENT OF PATHOLOGY AND GENOMIC MEDICINE Chloride 109 98 - 112 mEq/L [facility] DEPARTMENT OF PATHOLOGY AND GENOMIC MEDICINE CO2 22 (L) 24 - 31 mmol/L [facility] DEPARTMENT OF PATHOLOGY AND GENOMIC MEDICINE Anion gap 11@ANIO 7 - 15 mEq/L [facility] DEPARTMENT OF PATHOLOGY AND GENOMIC MEDICINE BUN 13 7 - 18 mg/dL [facility] DEPARTMENT OF PATHOLOGY AND GENOMIC MEDICINE Creatinine 0.60 0.50 - 0.90 mg/dL [facility] DEPARTMENT OF PATHOLOGY AND GENOMIC MEDICINE Glucose 100 65 - 100 mg/dL [facility] DEPARTMENT OF PATHOLOGY AND GENOMIC MEDICINE Calcium 8.5 8.3 - 10.2 mg/dL [facility] DEPARTMENT OF PATHOLOGY AND GENOMIC MEDICINE Specimen Plasma specimen Performing Organization Address City/[facility] Phone Number [facility] DEPARTMENT OF PATHOLOGY AND [address] [place] [address] [facility] MEDICINE ECG 12 lead (02/01/2018 10:24 PM CDT)Only the most recent of3 resultswithin the time period is included. Ventricular rate 117 [facility] Atrial rate 117 [facility] ME interval 152 [facility] QRSD interval 88 [...] nt change was found- Performing Organization Address [facility] Phone Number [facility] MUSE [address] [place] [address] ECG ED Preliminary Interpretation - NOT AN ORDER (02/01/2018 10:15 PM CDT)Only the most recent of3 resultswithin the time period is included. Narrative Performed At Ezequiel Campos DO 02/01/2018 11:39 PM ECG ED Preliminary Interpretation - Not an Order Performed by: EZEQUIEL CAMPOS Authorized by: EZEQUIEL CAMPOS ECG reviewed by ED Physician in the absence of a library science professor: yes Interpretation: Interpretation: abnormal Rate: ECG rate:117 ECG rate assessment: tachycardic Rhythm: Rhythm: sinus tachycardia Ectopy: Ectopy: none QRS: QRS axis:Normal Conduction: Conduction: normal ST segments: ST segments:Normal T waves: T waves: normal CBC with platelet and differential (01/18/2018 11:53 AM CDT)Only the most recent of4 resultswithin the time period is included. WBC 6.3 4.5 - 12.5 k/uL [facility] DEPART[facility] OF PATHOLOGY AND GENOMIC MEDICINE RBC 4.90 4.04 - 5.86 m/uL [facility] DEPARTMENT OF PATHOLOGY AND GENOMIC MEDICINE HGB 13.4 11.5 - 15.3 g/dL [facility] DEPARTMENT OF PATHOLOGY AND GENOMIC MEDICINE HCT 41.0 34.0 - 45.0 % [facility] DEPARTMENT OF PATHOLOGY AND GENOMIC MEDICINE MCV 83.7 80.0 - 98.0 fL [facility] DEPARTMENT OF PATHOLOGY AND GENOMIC MEDICINE MCH 27.3 27.0 - 34.0 pg [facility] DEPARTMENT OF PATHOLOGY AND GENOMIC MEDICINE MCHC 32.7 31.5 - 36.5 g/dL [facility] DEPARTMENT OF PATHOLOGY AND GENOMIC MEDICINE RDW - SD 39.4 37.0 - 51.0 fL [facility] DEPARTMENT OF PATHOLOGY AND GENOMIC MEDICINE MPV 11.1 (H) 7.4 - 10.4 fL [facility] DE[facility]MENT OF PATHOLOGY AND GENOMIC MEDICINE Platelet count 224 150 - 400 k/uL [facility] DEPARTMENT OF PATHOLOGY AND GENOMIC MEDICINE Nucleated RBC 0.00 /100 WBC [facility] DEPARTMENT OF PATHOLOGY AND GENOMIC MEDICINE Neutrophils 60.8 36.0 - 66.0 % [facility] DE[facility]MENT OF PATHOLOGY AND GENOMIC MEDICINE Lymphocytes 25.0 24.0 - 44.0 % [facility] DE[facility]MENT OF PATHOLOGY AND GENOMIC MEDICINE Monocytes 8.0 (H) 0.0 - 6.0 % [facility] DEPARTMENT OF PATHOLOGY AND GENOMIC MEDICINE Eosinophils 4.8 0.0 - 6.0 % [facility] DE[facility]MENT OF PATHOLOGY AND GENOMIC MEDICINE Basophils 1.1 0.0 - 1.2 % [facility] DE[facility]MENT OF PATHOLOGY AND GENOMIC MEDICINE Immature granulocytes 0.3 0.0 - 1.0 % [facility] DE[facility]MENT OF PATHOLOGY AND GENOMIC MEDICINE Specimen Blood Performing Organization Address City/State/Zipcode Phone Number [facility] DE[facility] OF [facility]OLOGY AND [address] [place] [address] [facility] Creatine kinase, total (CPK) (01/18/2018 11:53 AM CDT) Creatine kinase 61 26 - 192 U/L [facility] DE[facility]MENT OF PATHOLOGY AND GENOMIC MEDICINE Specimen Plasma specimen Performing Organization Address City/State/Zipcode Phone Number [facility] OF PATHOLOGY AND [address] [place] [address] [employer] [facility] Urinalysis screen and microscopy, with reflex to culture (12/16/2017 11:43 AM CDT)Only the most recent of4 resultswithin the time period is included. Specimen site Clean catch [facility] DE[facility] OF PATHOLOGY AND GENOMIC MEDICINE Color, UA Yellow [facility] DE[facility] OF PATHOLOGY AND GENOMIC MEDICINE Appearance, UA Clear [facility] DE[facility]MENT OF PATHOLOGY AND GENOMIC MEDICINE Specific gravity, UA 1.023 1.001 - 1.035 [facility] DE[facility]MENT OF PATHOLOGY AND GENOMIC MEDICINE pH, UA 6.0 5.0 - 8.5 [facility] DE[facility]MENT OF PATHOLOGY AND GENOMIC MEDICINE Protein, UA Negative Negative [facility] DE[facility]MENT OF PATHOLOGY AND GENOMIC MEDICINE Glucose, UA Negative Negative [facility] DE[facility]MENT OF PATHOLOGY AND GENOMIC MEDICINE Ketones, UA Negative Negative [facility] DE[facility]MENT OF PATHOLOGY AND GENOMIC MEDICINE Bilirubin, UA Negative Negative [facility] DE[facility]MENT OF PATHOLOGY AND GENOMIC MEDICINE Blood, UA Negative Negative [facility] DE[facility]MENT OF PATHOLOGY AND GENOMIC MEDICINE Nitrite, UA Negative Negative [facility] DEPARTMENT OF PATHOLOGY AND GENOMIC MEDICINE Urobilinogen, UA Negative <2.0 [facility] DE[facility]MENT OF PATHOLOGY AND GENOMIC MEDICINE Leukocyte esterase, UA Negative Negative [facility] DE[facility]MENT OF PATHOLOGY AND GENOMIC MEDICINE Epithelial cells, UA Few /HPF [facility] DEPARTMENT OF PATHOLOGY AND GENOMIC MEDICINE WBC, UA 2 0 - 5 /HPF [facility] DEPARTMENT OF PATHOLOGY AND GENOMIC MEDICINE RBC, UA <1 0 - 5 /HPF [facility] DEPARTMENT OF PATHOLOGY AND GENOMIC MEDICINE Bacteria, UA None seen None seen [facility] DE[facility]MENT OF PATHOLOGY AND GENOMIC MEDICINE Yeast, UA None seen [facility] DEPARTMENT OF PATHOLOGY AND GENOMIC MEDICINE Yeast with pseudohyphae, UA None seen [facility] DEPARTMENT OF PATHOLOGY AND GENOMIC MEDICINE Specimen Urine Narrative Performed At CALLED TO OSMANY MOCTEZUMA [facility] DEPARTMENT OF PATHOLOGY AND GENOMIC @12:4208 [facility] MEDICINE ?Specimen must be received in the laboratory within 2 hours of ?collection. ?Specimen Source->Urine Performing Organization Address City/State/Zipcode Phone Number [facility] DE[facility]MENT OF PATHOLOGY AND [address] [place] [address] [facility] hCG qualitative, urine screen (12/16/2017 11:43 AM CDT)Only the most recent of4 resultswithin the time period is included. hCG qualitative, urine Negative Negative [facility] DEPARTMENT OF Comment: PATHOLOGY AND GENOMIC The manufacturers stated sensitivity of HcG test for serum is >/=10 MEDICINE mIU/ml and urine is >/=20mIU/ml. Specimen Urine Narrative Performed At CALLED TO OSMANY MOCTEZUMA [facility] DEPARTMENT OF PATHOLOGY AND GENOMIC @12: [facility] ?Specimen must be received in the laboratory within 2 hours of ?collection. ?Specimen Source->Urine Performing Organization Address City/[facility]/Zipcode Phone Number [facility] DE[facility]MENT OF PATHOLOGY AND [address] [place], [place] [phone] [place] [address] Urine culture (12/16/2017 11:43 AM CDT)Only the most recent of4 resultswithin the time period is included. Urine culture SEE COMMENTComment: Bacteriuria [facility] DEPARTMENT OF PATHOLOGY screen negative. AND GENOMIC MEDICINE Narrative Performed At CALLED TO OSMANY MOCTEZUMA [facility] DEPARTMENT OF PATHOLOGY AND GENOMIC @12: [facility] ?Specimen must be received in the laboratory within 2 hours of ?collection. ?Specimen Source->Urine Performing Organization Address City/[facility]/Zipcode Phone Number [facility] DEPARTMENT OF PATHOLOGY AND [address] [place], [place] [phone] [place] [address] Lactic acid level, SEPSIS - Now and repeat 2x every 3 hours (12/16/2017 11:38 AM CDT) Lactic acid 2.2 0.5 - 2.2 mmol/L [facility] DE[facility]MENT OF PATHOLOGY AND GENOMIC MEDICINE Specimen Blood Performing Organization Address City/[facility]/Zipcode Phone Number [facility] DEPARTMENT OF PATHOLOGY AND [address] [place] [address] [employer] [facility] Estimated GFR (12/16/2017 11:38 AM CDT)Only the most recent of4 resultswithin the time period is included. GFR Non Af Amer >90 mL/min/1.73 m2 [facility] DE[facility]MENT OF PATHOLOGY AND GENOMIC MEDICINE GFR Af Amer >90 mL/min/1.73 m2 [facility] DEPARTMENT OF Comment: PATHOLOGY AND GENOMIC Chronic [...] Americans. Specimen Plasma specimen Performing Organization Address City/[facility] Phone Number [facility] DE[facility] OF PATHOLOGY AND [address] [facility] [place] [address] [facility] Lipase level (12/16/2017 11:38 AM CDT) Lipase 27 13 - 60 U/L [facility] DE[facility]MENT OF PATHOLOGY AND GENOMIC MEDICINE Specimen Plasma specimen Performing Organization Address [facility] Phone Number [facility] DEPARTMENT OF PATHOLOGY AND [address] [place] [address] [facility] Hepatic function panel (12/16/2017 11:38 AM CDT) Albumin 3.9 3.5 - 5.0 g/dL [facility] DEPARTMENT OF PATHOLOGY AND GENOMIC MEDICINE Total bilirubin 0.3 0.2 - 1.2 mg/dL [facility] DE[facility]MENT OF PATHOLOGY AND GENOMIC MEDICINE Bilirubin direct <0.2 0.0 - 0.4 mg/dL [facility] DE[facility]MENT OF PATHOLOGY AND GENOMIC MEDICINE Alkaline phosphatase 74 0 - 104 U/L [facility] DEPARTMENT OF PATHOLOGY AND GENOMIC MEDICINE Protein 7.4 6.3 - 8.3 g/dL [facility] DEPARTMENT OF PATHOLOGY AND GENOMIC MEDICINE ALT 13 5 - 50 U/L [facility] DEPARTMENT OF PATHOLOGY AND GENOMIC MEDICINE AST 17 10 - 35 U/L [facility] DEPARTMENT OF PATHOLOGY AND GENOMIC MEDICINE Specimen Plasma specimen Performing Organization Address [facility] Phone Number [facility] DEPARTMENT OF PATHOLOGY AND [address] [facility] [place] [address] [facility] MEDICINE Gram stain (12/10/2017 10:59 PM CDT)Only the most recent of3 resultswithin the time period is included. Gram stain result No WBC's or organisms seen. [facility] DEPARTMENT OF PATHOLOGY Comment: AND GENOMIC MEDICINE Specimen Information Specimen Source: Urine Specimen Site: Clean catch Specimen Urine Performing Organization Address City/[facility]/Zipcode Phone Number [facility] DEPARTMENT OF PATHOLOGY AND [address] [place] [address] GENOMIC MEDICINE XR Chest 1 Vw Portable (12/10/2017 10:16 PM CDT) Narrative Performed At EXAMINATION:XR CHEST 1 VW PORTABLE [facility] CLINICAL HISTORY:seizure COMPARISON:04/11/2014 IMPRESSION: Mild prominence of pulmonary interstitial lung markings is suspicious for mild edema or atypical infection. No effusions or pneumothorax. Cardiomediastinal silhouette is within normal limits. No acute osseous abnormalities. [facility]-[id number] Procedure Note Hm Interface, Radiology Results Incoming - 12/10/2017 10:28 PM CDT EXAMINATION: XR CHEST 1 VW PORTABLE CLINICAL HISTORY: seizure COMPARISON: 04/11/2014 IMPRESSION: Mild prominence of pulmonary interstitial lung markings is suspicious for mild edema or atypical infection. No effusions or pneumothorax. Cardiomediastinal silhouette is within normal limits. No acute osseous abnormalities. [facility]-[id number] Performing Organization Address City/[facility]/Zipcode Phone Number [facility] [address] [place] [address] Troponin (12/10/2017 9:38 PM CDT) Troponin <0.30 0.00 - 0.30 ng/mL [facility] DEPARTMENT OF PATHOLOGY Comment: AND GENOMIC MEDICINE 0.11 - 1.49 ng/mlMay indicate increased risk of acute coronary syndrome. >=1.5 ng/mlConsistent with acute myocardial infarction. The diagnostic value of a single normal or non-diagnostic result is questionable.Serial samples at 2-6 hour intervals are required to rule out acute myocardial injury. Specimen Plasma specimen Performing Organization Address [facility] Phone Number [facility] DEPARTMENT OF PATHOLOGY AND [address] [place] [address]. [place], [place] [phone] [place] [address] B natriuretic peptide (12/10/2017 9:38 PM CDT) BNP 9 0 - 100 pg/mL [facility] DEPARTMENT OF PATHOLOGY AND GENOMIC MEDICINE Specimen Blood Performing Organization Address [facility] Phone Number [facility] DEPARTMENT OF PATHOLOGY AND [address] [place] [address]. [place], [place] [phone] [place] [address] Comprehensive metabolic panel (12/10/2017 9:38 PM CDT)Only the most recent of3 resultswithin the time period is included. Sodium 143 135 - 150 mEq/L [facility] DEPARTMENT OF PATHOLOGY AND GENOMIC MEDICINE Potassium 3.7 3.5 - 5.0 mEq/L [facility] DEPARTMENT OF PATHOLOGY AND GENOMIC MEDICINE Chloride 110 98 - 112 mEq/L [facility] DEPARTMENT OF PATHOLOGY AND GENOMIC MEDICINE CO2 18 (L) 24 - 31 mmol/L [facility] DEPARTMENT OF PATHOLOGY AND GENOMIC MEDICINE Anion gap 15@ANIO 7 - 15 mEq/L [facility] DEPARTMENT OF PATHOLOGY AND GENOMIC MEDICINE BUN 7 7 - 18 mg/dL [facility] DEPARTMENT OF PATHOLOGY AND GENOMIC MEDICINE Creatinine 0.60 0.50 - 0.90 mg/dL [facility] DEPARTMENT OF PATHOLOGY AND GENOMIC MEDICINE Glucose 101 (H) 65 - 100 mg/dL [facility] DEPARTMENT OF PATHOLOGY AND GENOMIC MEDICINE Calcium 8.9 8.3 - 10.2 mg/dL [facility] DEPARTMENT OF PATHOLOGY AND GENOMIC MEDICINE Protein 7.1 6.3 - 8.3 g/dL [facility] DEPARTMENT OF PATHOLOGY AND GENOMIC MEDICINE Albumin 3.7 3.5 - 5.0 g/dL [facility] DEPARTMENT OF PATHOLOGY AND GENOMIC MEDICINE A/G ratio 1.1 0.7 - 3.8 [facility] DEPARTMENT OF PATHOLOGY AND GENOMIC MEDICINE Alkaline phosphatase 74 0 - 104 U/L [facility] DEPARTMENT OF PATHOLOGY AND GENOMIC MEDICINE AST 15 10 - 35 U/L [facility] DEPARTMENT OF PATHOLOGY AND GENOMIC MEDICINE ALT 11 5 - 50 U/L [facility] DEPARTMENT OF PATHOLOGY AND GENOMIC MEDICINE Total bilirubin <0.3 0.2 - 1.2 mg/dL [facility] DEPARTMENT OF PATHOLOGY AND GENOMIC MEDICINE Specimen Plasma specimen Performing Organization Address City/State/Zipcode Phone Number [facility] DEPARTMENT OF PATHOLOGY AND [facility] [place] [address] [facility] Urinalysis, automated with microscopy (08/30/2017 11:54 PM CDT) Color, UA Yellow [facility] DEPARTMENT OF PATHOLOGY AND GENOMIC MEDICINE Appearance, UA Slightly-Cloudy [facility] DEPARTMENT OF PATHOLOGY AND GENOMIC MEDICINE Specific gravity, UA 1.019 1.001 - 1.035 [facility] DEPARTMENT OF PATHOLOGY AND GENOMIC MEDICINE pH, UA 6.0 5.0 - 8.5 [facility] DEPARTMENT OF PATHOLOGY AND GENOMIC MEDICINE Protein, UA Negative Negative [facility] DEPARTMENT OF PATHOLOGY AND GENOMIC MEDICINE Glucose, UA Negative Negative [facility] DEPARTMENT OF PATHOLOGY AND GENOMIC MEDICINE Ketones, UA Negative Negative [facility] DEPARTMENT OF PATHOLOGY AND GENOMIC MEDICINE Bilirubin, UA Negative Negative [facility] DEPARTMENT OF PATHOLOGY AND GENOMIC MEDICINE Blood, UA Negative Negative [facility] DEPARTMENT OF PATHOLOGY AND GENOMIC MEDICINE Nitrite, UA Negative Negative [facility] DEPARTMENT OF PATHOLOGY AND GENOMIC MEDICINE Urobilinogen, UA Negative <2.0 [facility] DEPARTMENT OF PATHOLOGY AND GENOMIC MEDICINE Leukocyte esterase, UA Trace (A) Negative [facility] DEPARTMENT OF PATHOLOGY AND GENOMIC MEDICINE Epithelial cells, UA Many /HPF [facility] DEPARTMENT OF PATHOLOGY AND GENOMIC MEDICINE Round epithelial cells, UA Few 0 - 1 /HPF [facility] DEPARTMENT OF PATHOLOGY AND GENOMIC MEDICINE WBC, UA 11-20 (H) 0 - 4 /HPF [facility] DEPARTMENT OF PATHOLOGY AND GENOMIC MEDICINE RBC, UA 6-10 (H) 0 - 5 /HPF [facility] DEPARTMENT OF PATHOLOGY AND GENOMIC MEDICINE Bacteria, UA Trace None seen [facility] DEPARTMENT OF PATHOLOGY AND GENOMIC MEDICINE Yeast, UA None seen [facility] DEPARTMENT OF PATHOLOGY AND GENOMIC MEDICINE Yeast with pseudohyphae, UA None seen [facility] DEPARTMENT OF PATHOLOGY AND GENOMIC MEDICINE Specimen Urine Performing Organization Address [facility] Phone Number [facility] DEPARTMENT OF PATHOLOGY AND [id number] [place] [address] hCG quantitative, serum (08/30/2017 10:30 PM CDT) hCG quantitative, serum <0 0 - 5 mIU/mL [facility] DEPARTMENT OF Comment: PATHOLOGY AND GENOMIC Reference range for HCG Quant applies to males and non- MEDICINE females. Post Menopausal 0.0 - 8.1 mIU/mL Specimen Plasma specimen Performing Organization Address [facility] Phone Number [facility] DEPARTMENT OF PATHOLOGY AND [id number] [place] [address] [place] [address] [facility] GFR calculation (08/30/2017 10:20 PM CDT)Only the most recent of2 resultswithin the time period is included. GFR calculation See BelowComment: GFR not [facility] DEPARTMENT OF PATHOLOGY valid on patients less than AND [facility] MEDICINE 18 years of age. Specimen Plasma specimen Performing Organization Address City/[facility] Phone Number [facility] DEPARTMENT OF PATHOLOGY AND [id number] [place] [address] [place] [address] [facility] Magnesium level (07/13/2017 10:11 AM CDT) Magnesium 2.20 1.60 - 2.40 mg/dL [facility] DEPARTMENT OF PATHOLOGY AND GENOMIC MEDICINE Specimen Plasma specimen Performing Organization Address City/[facility] Phone Number [facility] DEPARTMENT OF PATHOLOGY AND [address] [place] [address] [facility] POC glucose (07/07/2017 12:25 AM CDT) POC glucose 130 (H) 65 - 100 mg/dL [facility] DEPARTMENT OF PATHOLOGY Comment: AND GENOMIC MEDICINE Meter ID: [id number] Bagel Maker: Xavier Womack Performing Organization Address City/State/Zipcode Phone Number [facility] DEPARTMENT OF PATHOLOGY AND [facility] [place] [address] GENOMIC MEDICINE after 04/16/2017 Advance Directives Patient has advance care planning documents on file. For more information, please contact:[place] [address]
--- NOTE | 2018-04-17 12:29 | EDPHYS ---
Physician Documentation [facility] Name: Saloni Malin Age: 17 yrs Sex: Female : 2000 Arrival Date: 04/17/2018 Time: 11:30 Bed 16 Private MD: ED Physician Juliocesar Cordoba HPI: 04/17 11:57 This 17 yrs old Female presents to ER via EMS with complaints of Seizure. pm1 11:57 The patient presents after having a single isolated seizure, that lasted 2 minute(s). pm1 Character of seizure(s): Loss of consciousness: the patient experienced loss of consciousness, Motor activity: generalized, shaking all over, Incontinence: none, Apnea: the patient did not experience apnea, Circulation: the patient did not experience evidence of pulse disturbance. Seizure onset: just prior to arrival. Context: the seizure(s) was witnessed, by a friend, occurred at home, occurred while the patient was at rest, on the couch. Contributing factors: unknown. Seizure Hx: Last seizure: The patient's last seizure was approximately 1 day(s) ago, Seizure medications: Keppra, Topiramate . Associated injury: The patient did not suffer any apparent associated injury. EMS care: IV saline lock. Current symptoms: Currently, the patient is not experiencing any symptoms, the patient feels back to baseline, no confusion, no dysphasia, no headache, no paralysis, no visual changes. The patient has experienced similar episodes in the past, a few times. The patient has been recently seen at the [facility] Emergency Department, yesterday, for similar complaints labs were performed. 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 - Social history:: Smoking status: Patient/guardian denies using tobacco. - Ebola Screening: : Patient negative for fever greater than or equal to 101.5 degrees Fahrenheit, and additional compatible Ebola Virus Disease symptoms Patient denies exposure to infectious person Patient denies travel to an Ebola-affected area in the 21 days before illness onset No symptoms or risks identified at this time. ROS: 11:57 Constitutional: Negative for fever, chills, and weight loss, Eyes: Negative for injury, pm1 pain, redness, and discharge, ENT: Negative for injury, pain, and discharge, Neck: Negative for injury, pain, and swelling, Cardiovascular: Negative for chest pain, palpitations, and edema, Respiratory: Negative for shortness of breath, cough, wheezing, and pleuritic chest pain, Abdomen/GI: Negative for abdominal pain, nausea, vomiting, diarrhea, and constipation, Back: Negative for injury and pain, : Negative for injury, bleeding, discharge, and swelling, MS/Extremity: Negative for injury and deformity, Skin: Negative for injury, rash, and discoloration. 11:57 Neuro: Positive for seizure activity, Negative for dizziness, headache, numbness, tingling. Exam: 11:57 Constitutional: This is a well developed, well nourished patient who is awake, alert, pm1 and in no acute distress. Head/Face: Normocephalic, atraumatic. Eyes: Pupils equal round and reactive to light, extra-ocular motions intact. Lids and lashes normal. Conjunctiva and sclera are non-icteric and not injected. Cornea within normal limits. Periorbital areas with no swelling, redness, or edema. ENT: Nares patent. No nasal discharge, no septal abnormalities noted. Tympanic membranes are normal and external auditory canals are clear. Oropharynx with no redness, swelling, or masses, exudates, or evidence of obstruction, uvula midline. Mucous membranes moist. Neck: Trachea midline, no thyromegaly or masses palpated, and no cervical lymphadenopathy. Supple, full range of motion without nuchal rigidity, or vertebral point tenderness. No Meningismus. Chest/axilla: Normal chest wall appearance and motion. Nontender with no deformity. No lesions are appreciated. Cardiovascular: Regular rate and rhythm with a normal S1 and S2. No gallops, murmurs, or rubs. Normal PMI, no JVD. No pulse deficits. Respiratory: Lungs have equal breath sounds bilaterally, clear to auscultation and percussion. No rales, rhonchi or wheezes noted. No increased work of breathing, no retractions or nasal flaring. Abdomen/GI: Soft, non-tender, with normal bowel sounds. No distension or tympany. No guarding or rebound. No evidence of tenderness throughout. Back: No spinal tenderness. No costovertebral tenderness. Full range of motion. Skin: Warm, dry with normal turgor. Normal color with no rashes, no lesions, and no evidence of cellulitis. MS/ Extremity: Pulses equal, no cyanosis. Neurovascular intact. Full, normal range of motion. 11:57 Neuro: Orientation: is normal, Mentation: is normal, Cranial nerves: CN II- XII are normal as tested, Cerebellar function: normal finger to nose testing, heel to noyola testing is normal, Motor: moves all fours, strength is normal, strength is 5/5 in all extremities, Sensation: is normal, no obvious gross deficits. Vital Signs: 11:35 BP 94 / 63; Pulse 87; Resp 16; Temp 97.9; Pulse Ox 100% ; Weight 68.04 kg; Height 5 ft. bp 3 in. (160.02 cm); 12:06 BP 98 / 73; Pulse 83; Resp 15; Pulse Ox 100% on R/A; mh5 12:52 BP 99 / 63; Pulse 79; Resp 16; Pulse Ox 100% ; bp 12:53 BP 99 / 63; Pulse 79; Resp 16; Pulse Ox 100% ; bp 11:35 Body Mass Index 26.57 (68.04 kg, 160.02 cm) bp Sabas Coma Score: 11:33 Eye Response: spontaneous(4). Verbal Response: oriented(5). Motor Response: obeys bp commands(6). Total: 15. MDM: 11:34 Patient medically screened. pm1 12:27 Data reviewed: vital signs. Data interpreted: Pulse oximetry: on room air is 100 %. pm1 Interpretation: normal. Counseling: I had a detailed discussion with the patient and/or guardian regarding: the historical points, exam findings, and any diagnostic results supporting the discharge/admit diagnosis, the need for outpatient follow up, for definitive care, a neurologist, to return to the emergency department if symptoms worsen or persist or if there are any questions or concerns that arise at home. Administered Medications: 12:20 Drug: Keppra 1000 mg Route: IV; Rate: calculated rate; Site: left antecubital; bp 12:53 Follow up: BP 99 / 63; Pulse 79 bpm; Resp 16 bpm; Pulse Ox 100% bp 12:54 Follow up: IV Status: Completed infusion; IV Intake: 100ml bp Disposition: 04/17/18 12:28 Discharged to Home. Impression: Epilepsy and recurrent seizures. - Condition is Stable. - Discharge Instructions: Seizure, Adult, [id number]. - Medication Reconciliation Form, Thank You Letter form. - Follow up: Emergency Department; When: As needed; Reason: Worsening of condition. Follow up: Teddy Ambrosio MD; When: 2 - 3 days; Reason: Recheck today's complaints, Continuance of care, Re-evaluation by your physician. - Problem is new. - Symptoms have improved. Addendum: 04/29/2018 15:09 Co-signature as Attending Physician, Juliocesar Cordoba MD Available for consultation at p s1 all times. . Signatures: Zaid Watson, STRATEGIC PARTNERSHIP REPRESENTATIVE STRATEGIC PARTNERSHIP REPRESENTATIVE pm1 Gerard Carroll, RN RN bp Juliocesar Cordoba MD MD ps1 Corrections: (The following items were deleted from the chart) 04/17 12:59 12:28 04/17/2018 12:28 Discharged to Home. Impression: Epilepsy and recurrent seizures. bp Condition is Stable. Forms are Medication Reconciliation Form, Thank You Letter, Antibiotic Education, Prescription Opioid Use. Follow up: Emergency Department; When: As needed; Reason: Worsening of condition. Follow up: Teddy Ambrosio; When: 2 - 3 days; Reason: Recheck today's complaints, Continuance of care, Re-evaluation by your physician. Problem is new. Symptoms have improved. pm1
--- NOTE | 2018-04-17 12:29 | ER ---
Nurse's Notes [facility] Name: Saloni Malin Age: 17 yrs Sex: Female : 2000 Arrival Date: 04/17/2018 Time: 11:30 Bed 16 Private MD: Diagnosis: Epilepsy and recurrent seizures Presentation: 04/17 11:31 Presenting complaint: EMS states: SEIZURE Y/D AND TODAY. Transition of care: patient bp was not received from another setting of care. Onset of symptoms is unknown. Risk Assessment: Do you want to hurt yourself or someone else? Patient reports no desire to harm self or others. Initial Sepsis Screen: Does the patient meet any 2 criteria? No. Patient's initial sepsis screen is negative. Does the patient have a suspected source of infection? No. Patient's initial sepsis screen is negative. Care prior to arrival: Medication(s) given: zofran 4 mg, IV initiated. 20 GA, in the left antecubital area, Glucose check: 101. 11:31 Method Of Arrival: EMS: [facility] bp 11:31 Acuity: KEVAN 4 bp Triage Assessment: 11:33 General: Appears in no apparent distress. comfortable, Behavior is calm, cooperative, bp appropriate for age. Pain: Denies pain. EENT: No deficits noted. Neuro: Level of Consciousness is awake, alert, obeys commands, Oriented to person, place, time, situation, Appropriate for age. Cardiovascular: No deficits noted. Respiratory: No deficits noted. GI: No signs and/or symptoms were reported involving the gastrointestinal system. : No signs and/or symptoms were reported regarding the genitourinary system. Derm: No deficits noted. Musculoskeletal: Circulation, motion, and sensation intact. Range of motion: intact in all extremities. 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 - Social history:: Smoking status: Patient/guardian denies using tobacco. - Ebola Screening: : Patient negative for fever greater than or equal to 101.5 degrees Fahrenheit, and additional compatible Ebola Virus Disease symptoms Patient denies exposure to infectious person Patient denies travel to an Ebola-affected area in the 21 days before illness onset No symptoms or risks identified at this time. Screenin:50 Abuse screen: Denies threats or abuse. Denies injuries from another. Nutritional bp screening: No deficits noted. Tuberculosis screening: No symptoms or risk factors identified. Fall Risk None identified. Assessment: 11:37 General: SEE TRIAGE NOTE. bp 12:34 Reassessment: D/C ON HOLD FOR IV INFUSION. bp 12:51 Reassessment: PT D/C HOME AMBULATORY WITH FAMILY, DX WITH EPILEPSY AND SEIZURE. bp Vital Signs: 11:35 BP 94 / 63; Pulse 87; Resp 16; Temp 97.9; Pulse Ox 100% ; Weight 68.04 kg; Height 5 ft. bp 3 in. (160.02 cm); 12:06 BP 98 / 73; Pulse 83; Resp 15; Pulse Ox 100% on R/A; mh5 12:52 BP 99 / 63; Pulse 79; Resp 16; Pulse Ox 100% ; bp 12:53 BP 99 / 63; Pulse 79; Resp 16; Pulse Ox 100% ; bp 11:35 Body Mass Index 26.57 (68.04 kg, 160.02 cm) bp Sabas Coma Score: 11:33 Eye Response: spontaneous(4). Verbal Response: oriented(5). Motor Response: obeys bp commands(6). Total: 15. ED Course: 11:30 Patient arrived in ED. bp 11:32 Zaid Watson NP is PHCP. pm1 11:32 Juliocesar Cordoba MD is Attending Physician. pm1 11:32 Triage completed. bp 11:35 Arm band placed on left wrist. bp 11:35 Maintain EMS IV. Dressing intact. Good blood return noted. Site clean \T\ dry. Gauge \T\ bp site: 20 GAUGE LEFT AC. 11:50 Patient has correct armband on for positive identification. Bed in low position. Call bp light in reach. Side rails up X2. 11:53 Gerard Carroll, RAMSEY is Primary Nurse. bp 12:28 Teddy Ambrosio MD is Referral Physician. pm1 12:52 Patient has correct armband on for positive identification. Bed in low position. Call bp light in reach. Side rails up X2. Adult w/ patient. Seizure precautions initiated. 12:59 No provider procedures requiring assistance completed. IV discontinued, intact, bp bleeding controlled, No redness/swelling at site. Pressure dressing applied. Administered Medications: 12:20 Drug: Keppra 1000 mg Route: IV; Rate: calculated rate; Site: left antecubital; bp 12:53 Follow up: BP 99 / 63; Pulse 79 bpm; Resp 16 bpm; Pulse Ox 100% bp 12:54 Follow up: IV Status: Completed infusion; IV Intake: 100ml bp Intake: 12:54 IV: 100ml; Total: 100ml. bp Outcome: 12:28 Discharge ordered by MD. pm1 12:56 Discharged to home ambulatory, with family. bp 12:56 Condition: stable 12:56 Discharge instructions given to patient, family, Instructed on discharge instructions, follow up and referral plans. medication usage, Demonstrated understanding of instructions, follow-up care, medications. 12:59 Patient left the ED. bp Signatures: Zaid Watson NP SAMPLER AND TEST PREPARER pm1 Lakisha Tello 5 Gerard Carroll, RN RN bp Corrections: (The following items were deleted from the chart) 11:50 11:35 Pulse 87bpm; Resp 16bpm; Pulse Ox 100%; Temp 97.9F; 68.04 kg; Height 5 ft. 3 in.; bp BMI: 26.5; bp
[2018-04-17] MEDS ORDERED: levETIRAcetam 1,000 MG in NA CHLORIDE 0.9% 100 ML IV ONE (12:30)
== END 2018-04-17 12:59 | disposition home or self-care (01) ==
LOC: ER 11:29
DX: G40.909 Epilepsy, unspecified, not intractable, without status epilepticus (principal); F41.0 Panic disorder [episodic paroxysmal anxiety]; Z79.899 Other long term (current) drug therapy
CPT/HCPCS: 96365; 99283; J1953

== ENCOUNTER 2018-05-12 09:00 | Emergency (ER) | payer SELFPAY ==
--- OUTSIDE RECORDS SUMMARY | 2018-05-12 09:03 | XMS REPORT ---
:2000 [facility] [address] [place] [address] Care Team Providers Name Role Phone Unavailable Unavailable Unavailable Problems This patient has no known problems. Allergies, Adverse Reactions, Alerts This patient has no known allergies or adverse reactions. Medications This patient has no known medications. Encounters Start End Encounter Admission Attending Care Care Encounter Date/Time Date/Time Type Type Clinicians Facility Department ID 2018-05-05 2018-05-05 Outpatient [facility] [id number] 10:29:53 10:29:53 2018-04-30 2018-04-30 Outpatient [facility] [id number] 14:42:54 14:42:54 2018-04-26 2018-04-26 Emergency [facility] [id number] 10:33:37 10:33:37 2018-04-23 2018-04-23 Outpatient [facility] [id number] 08:47:26 08:47:26
--- OUTSIDE RECORDS SUMMARY | 2018-05-12 09:03 | XMS REPORT ---
:2000 Author Organization [facility] [place] [address] Phone Allergies, Adverse Reactions, Alerts Allergy Name Reaction [...] Other disorder / Isak MACK convulsions (res) ANXIETY Active Myla Anxiety DISORDER, Rodrigo disorder in D/T ANOT MED PMHNP conditions COND classified elsewhere Viral 079.99 Inactive Bessy Unspecified syndrome / Isak MACK viral (res) infection Viral syndrome ICD-079.99 Inactive Bessy Parisi (res) PANIC DISORDER Inactive Myla Wallace Panic disorder PMHNP without agoraphobia PANIC DISORDER Inactive Myla Wallace PMHNP Medication List Medication Instructions Start Stop Generic NDC Status Provider Patient Date Date Name Instruction GABAPENTIN Take 1 GABAPENTIN 26523866759 Active Myla Active 300 MG ORAL tablet By Wallace CAPSULE Mouth BID PMHNP TEMAZEPAM 15 Take 1 TEMAZEPAM 62083504290 Active Myla Active MG ORAL tablet By Wallace CAPSULE Mouth QHS PMHNP As Needed for insomnia JAVIPPRA 1000 BID LEVETIRACETAM 22471823956 Active Myla Active MG ORAL Wallace TABLET PMHNP TOPAMAX 300 mg BID TOPIRAMATE 10377009872 Active Myla Active TABLET TABS Wallace PMHNP ATIVAN 0.5 Take 1 LORAZEPAM 70265260656 Active Myla Active MG ORAL tablet By Wallace TABLET Mouth BID PMHNP As Needed for anxiety ONDANSETRON 1 tab By ONDANSETRON 171937 ONDANSETRON Inactive HCL 4 MG ORAL Mouth HCL 4 MG ORAL HCL TABLET q6h As TABLET Needed nausea ONDANSETRON 1 tab ONDANSETRON 29339255093 No Bessy Active HCL 4 MG By HCL Longer Isak MACK ORAL TABLET Mouth Active (res) q6h As Needed nausea Vital Signs Date Name Value Unit Range [...] Provider Code Facility Est Patient Exp Myla Garzaley CPT-54810 [place] 13:55:59 CDT Problem - 08594 PMHNP Behavioral Health Est Patient Exp Bessy Parisi MD CPT-06100 [facility] 11:46:05 CDT Problem - 34915 (res) Practice Est Patient Exp Myla Garzaley CPT-32555 [place] 10:59:44 CDT Problem - 45286 PMHNP Behavioral Health Est Patient Exp Myla Garzaley CPT-26263 [place] 17:38:22 CDT Problem - 89993 PMHNP Behavioral Health Procedures Code Procedure Name Date Entry Date Standard Description CPT-51427 Diagnostic evaluation with medical - 26792 11:57:40 CDT
--- OUTSIDE RECORDS SUMMARY | 2018-05-12 09:03 | XMS REPORT | Clinical Summary ---
:2000 Author Organization [facility] Address [facility] [place] [address] Care Team Providers Name Role Phone Unavailable Primary Care Provider Unavailable Allergies Active Allergy Reactions Severity Noted Date Comments No Known Allergies 09/12/2010 Medications Medication Sig Dispensed Refills Start Date End Date Status fluticasone 100 mcg by 0 12/07/2012 Active (FLONASE) 50 Nasal route. mcg/actuation nasal spray diazePAM (DIASTAT Insert 15 mg 1 Each 2 04/22/2018 Active ACUDIAL) rectally as 12.5-15-17.5-20 mg needed KitIndications: (seizures). Seizure topiramate Take 3 tablets 90 tablet 1 05/10/2018 Active (TOPAMAX) 100 mg by mouth 2 tabletIndications: times daily. Seizure levETIRAcetam Take 2 tablets 180 tablet 1 05/10/2018 Active (KEPPRA) 500 mg in the morning tabletIndications: and 3 tablets Seizure in the evening.. levETIRAcetam TAKE ONE 60 tablet 5 01/10/2016 Discontinued (KEPPRA) 500 mg TABLET BY 8 tabletIndications: MOUTH TWICE Seizure DAILY topiramate Take 300 mg by 0 05/30/2015 Discontinued (TOPAMAX) 100 mg mouth. 8 tablet diazePAM (DIASTAT Insert 15 mg 0 12/13/2014 Discontinued ACUDIAL) rectally. 8 12.5-15-17.5-20 mg Kit topiramate Take 3 tablets 90 tablet 1 04/22/2018 Discontinued (TOPAMAX) 100 mg by mouth 9 tabletIndications: daily. Seizure levETIRAcetam Take 2 tablets 180 tablet 1 04/22/2018 Discontinued (KEPPRA) 500 mg in the morning 9 tabletIndications: and 3 tablets Seizure in the evening.. Active Problems Problem Noted Date Hx of Seizures 04/22/2018 Routine infant or child health check 09/12/2010 Overview: 89 09/12/10 9 y/o WCC. Lulú [place] CP[place] [id number] Abnormal weight gain 09/12/2010 Overview: 09/12/10 Fasting lab work drawn. Information on healthy diet provided. Discussed importance of diet and portion control. Limit high calorie snacks and foods. Regular exercise encouraged. Lulú [place] CPNP [id number] BMI (body mass index), pediatric, 85% to less than 95% for age 0509/12/2010 Hyperpigmentation of skin 09/12/2010 Overview: 09/12/10 Large hyperpigmented macule/birthmark. Referral to dermatology for evaluation/documentation. Lulú [place] CPNP [id number] 09/18/10 Scheduled appointment for patient at [facility] on December 25, 2010 @ 2:00 p.m. Called mom and gave her appointment information and also mailed appointment slip to patient home. Elicia Feliz, [facility] 299753 Encounters Date Type Specialty Care Team Description 05/10/2018 Orders Only Family Practice Crystal Schwartz, Hx of Seizures 05/05/2018 Hospital Encounter Crystal Schwartz MD 04/30/2018 Ancillary Procedure Radiology Hx of Seizures 04/30/2018 Travel 04/30/2018 Orders Only Family Crystal Funez, Seizure (Primary Dx) 04/26/2018 Emergency Emergency Medicine Mango Ortiz Hx of Seizures MD Joe (Primary Dx) 04/26/2018 Travel 04/23/2018 Travel 04/22/2018 Office Visit Family Crystal Funez, Hx of Seizures ( Primary Dx); Preventative health care 04/22/2018 Travel after 05/11/2017 Immunizations Name Dates Previously Given Next Due DTaP Diphtheria, Tetanus, Acellular, 11/23/2002, 10/15/2000, 02/18/2000, Pertussis 05/14/1999, 03/19/1999, 1998 Hepatitis A Vaccine 11/23/2002, 08/22/2002, 05/25/2001 Hepatitis B Vaccine 05/14/1999, 1998, 1998 Hib Haemophilus Influenzae Type B 02/18/2000, 05/14/1999, 03/19/1999, 1998 Human Papillomavirus Vaccine 09/12/2010 11/12/2010 Influenza Vaccine 09/12/2010, 04/11/2009, 07/05/2004 09/13/2011 MCV4 Meningococcal Conjugate (Menactra) 12/05/2009 MMR Measles, Mumps, Rubella Vaccine 11/23/2002, 10/21/1999 Poliovirus Ipv 11/23/2002, 10/15/2000, 10/21/1999, 03/19/1999, 1998 Tdap Tetanus, diphtheria, acellular 12/05/2009 pertussis Vaccine Varicella Vaccine Pedi In Clinic 02/17/2010, 12/05/2009 Family History Medical History Relation Name Comments Other Other no known family medical problems Relation Name Status Comments Father Alive Maternal Grandfather Alive Maternal Grandmother (Age 70' s) Mother Alive Other Paternal Grandfather (Age 90's) Paternal Grandmother (Age 80's) Sister Alive 17 year sold Sister Alive 10 year old Sister Alive 4 year old Social History Tobacco Use Types Packs/Day Years Used Date Never Smoker Smokeless Tobacco: Never Used Alcohol Use Drinks/Week oz/Week Comments No Sex Assigned at Date Recorded Not on file Job Start Date Occupation Industry Not on file Not on file Not on file Travel History Travel Start Travel End [place] 03/24/2018 04/23/2018 Last Filed Vital Signs Vital Sign Reading Time Taken Blood Pressure 104/60 04/26/2018 1:51 PM [employer]PER[employer] Pulse 87 04/26/2018 1:51 PM [employer] EQUIP[employer] OPERATOR Temperature 36.7 C (98.1 F) 04/26/2018 1:51 PM [employer] EQUIPMENT OPERATOR Respiratory Rate 17 04/26/2018 1:51 PM [employer] EQUIPMENT OPERATOR Oxygen Saturation 100% 04/26/2018 1:51 PM [employer] EQUIP[employer] OPERATOR Inhaled Oxygen Concentration - - Weight 70.1 kg (154 lb 9.6 oz) 04/26/2018 10:26 AM [employer] EQUIPMENT OPERATOR Height 166.4 cm (5' 5.5") 04/22/2018 1:42 PM [employer] EQUIPMENT OPERATOR Body Mass Index 25.34 04/22/2018 1:42 PM [employer] EQUIPMENT OPERATOR Plan of Treatment Health Maintenance Due Date Last Done Comments IMM Influenza Seasonal Jan to June (>/=19 yrs) 01/25/2018 Procedures Procedure Name Priority Date/Time Associated Diagnosis Comments EEG-ROUTINE Routine 05/05/2018 11:40 Hx of Seizures Results for this AM [employer]QU[employer] OPERATOR procedure are in the results section. MRI BRAIN W AND W/O Routine 04/30/2018 4:00 Hx of Seizures Results for this CONTRAST PM [employer] EQUIPMENT OPERATOR procedure are in the results section. BMP POC Routine 04/26/2018 11:24 Results for this AM [employer] EQUIPMENT OPERATOR procedure are in the results section. LEVETIRACETAM Routine 04/23/2018 8:41 Hx of Seizures Results for this AM [employer] EQUIPMENT OPERATOR procedure are in the results section. MAGNESIUM Routine 04/23/2018 8:41 Hx of Seizures Results for this AM [employer] EQUIPMENT OPERATOR procedure are in the results section. CBC/DIFF Routine 04/23/2018 8:41 Hx of Seizures Results for this AM [employer] EQUIPMENT OPERATOR procedure are in the results section. FREE T4 Routine 04/23/2018 8:41 Preventative health Results for this AM [employer]QU[employer] OPERATOR care procedure are in the results section. TSH Routine 04/23/2018 8:41 Preventative health Results for this AM [employer]QU[employer] OPERATOR care procedure are in the results section. HEMOGLOBIN A1C Routine 04/23/2018 8:41 Preventative health Results for this AM [employer]QUIPMENT OPERATOR care procedure are in the results section. HIV-1/HIV-2 ROUTINE Routine 04/23/2018 8:41 Preventative health Results for this SCREENING AM [employer] EQUIPMENT OPERATOR care procedure are in the results section. COMPREHENSIVE Routine 04/23/2018 8:41 Hx of Seizures Results for this METABOLIC PANEL(DBIL AM [employer] W[employer] EQUIPMENT OPERATOR procedure are in NOT INCLUDED) the results section. LIPID PROFILE Routine 04/23/2018 8:41 Preventative health Results for this AM [employer] EQUIPMENT OPERATOR care procedure are in the results section. after 05/11/2017 Results EEG-ROUTINE (05/05/2018 11:40 AM [employer] W[employer] EQUIPMENT OPERATOR) Narrative Performed At [facility] EEG Report Generated: 05/05/2018 4:48:37 PM Patient Information ID [id number] Date 05/05/2018 Name CAMACHO CAIN EEG No. 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 Weight Introduction This routine EEG using the International 10-20 System was performed on the awake and cooperative patient. No sedation was administered to induce sleep. Description The dominant background rhythms consists of moderate amounts of bilaterally symmetrical 30-50 microvolts r hythmic 8-9 Hz alpha activity seen over the posterior head region(s). Reactivity to eye opening is symmetr ical. Photic stimulation was not performed. Hyperventilation was performed and resulted in no significant change s. OTHER ACTIVITIES: No other activities noted. SLEEP ACTIVITY: No notable sleep activity EPILEPTIFORM ACTIVITY: There are sharp waves present in the bilateral temporal lobes, most prominent at T5 and T6. At the end of the recording, there is a 12 second run of 3 Hz spike-wave discharges consistent wi th an electrographic seizure. It is maybe more prominent on the left hemisphere. 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 One electrographic seizure was recorded. Ross Lujan MD Clinical Neurophysiology Fellow Virginia Sparrow MD Epilepsy Attending Provider ID: [id number] Reviewed User Time Confirmed User Time [email or web address] 05/05/2018 4:54:15 PM [email or web address] 05/05/2018 4:54:22 PM Procedure Note Interface, Eeg-Results - 05/05/2018 4:55 PM [employer] EQUIPMENT OPERATOR EEG Report Generated: 05/05/2018 4:48:37 PM Patient Information ID [id number] Date 05/05/2018 Name CAMACHO CAIN EEG No. 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 Weight Introduction This routine EEG using the International 10-20 System was performed on the awake and cooperative patient. No sedation was administered to induce sleep. Description The dominant background rhythms consists of moderate amounts of bilaterally symmetrical 30-50 microvolts r hythmic 8-9 Hz alpha activity seen over the posterior head region(s). Reactivity to eye opening is symmetr ical. Photic stimulation was not performed. Hyperventilation was performed and resulted in no significant change s. OTHER ACTIVITIES: No other activities noted. SLEEP ACTIVITY: No notable sleep activity EPILEPTIFORM ACTIVITY: There are sharp waves present in the bilateral temporal lobes, most prominent at T5 and T6. At the end of the recording, there is a 12 second run of 3 Hz spike- wave discharges consistent wi th an electrographic seizure. It is maybe more prominent on the left hemisphere. 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 One electrographic seizure was recorded. Ross Lujan MD Clinical Neurophysiology Fellow Virginia Sparrow MD Epilepsy Attending Provider ID: [id number] Reviewed User Time Confirmed User Time [email or web address] 05/05/2018 4:54:15 PM [email or web address] 05/05/2018 4:54:22 PM Performing Organization Address City/State/Zipcode Phone Number [employer], [place] [address] [facility] [address] [place] [address] MRI BRAIN W AND W/O CONTRAST (04/30/2018 4:00 PM F[employer] WASH EQUIPMENT OPERATOR) Impressions Performed At IMPRESSION: SMS 1.Mild cerebellar tonsillar ectopia, right greater than left. 2.No other intracranial abnormalities. If the report is "FINALIZED" it indicates that the attending/staff radiologist has reviewed the images and agrees with the resident's interpretation. . Dictated By: Abhinav Schuster MD, 05/03/2018 11:07 AM I have reviewed the study and agree with the findings in this report. Signed By: Mohinder Chou MD, 05/03/2018 11:49 AM Narrative Performed At Exam: MRI of the brain without and with contrast SMS History: hx of seizures, on Keppra and Topamax Comparison studies: None Technique: Pre-contrast: 3D Axial Briggs, Axial DWI and ADC, SWI and Filtered Phase images, T2, T2 and T1 Flair and Coronal T2 FLAIR and T2 FSE through the temporal lobes. Post contrast: 3D Cube T1 Contrast: 15 cc of Dotarem. Complications: None FINDINGS: Motion artifacts obscure some details. Mass: No masses or hemorrhage. Enhancement: No abnormal enhancement. Encephalomalacia: None. Ischemic changes: None. Hippocampi: Normal in size and signal. Columns of the fornices: Normal in size and signal. Mammillary bodies: Intact. Calcification/iron: No abnormal deposits. Vessels: Normal flow voids in major arteries and veins. Migrational anomalies: None. Additional findings: There is mild cerebellar tonsillar ectopia, right greater than left. Nonspecific mild to moderate scattered T2 hyperintense paranasal sinus mucosal thickening is most prominent in the left maxillary and left sphenoid sinuses. The adenoid tonsils are mildly prominent. Procedure Note Interface, Rad/Mammog In - 05/03/2018 11:54 AM F[employer] W[employer] EQUIPMENT OPERATOR Exam: MRI of the brain without and with contrast History: hx of seizures, on Keppra and Topamax Comparison studies: None Technique: Pre-contrast: 3D Axial Briggs, Axial DWI and ADC, SWI and Filtered Phase images, T2, T2 and T1 Flair and Coronal T2 FLAIR and T2 FSE through the temporal lobes. Post contrast: 3D Cube T1 Contrast: 15 cc of Dotarem. Complications: None FINDINGS: Motion artifacts obscure some details. Mass: No masses or hemorrhage. Enhancement: No abnormal enhancement. Encephalomalacia: None. Ischemic changes: None. Hippocampi: Normal in size and signal. Columns of the fornices: Normal in size and signal. Mammillary bodies: Intact. Calcification/iron: No abnormal deposits. Vessels: Normal flow voids in major arteries and veins. Migrational anomalies: None. Additional findings: There is mild cerebellar tonsillar ectopia, right greater than left. Nonspecific mild to moderate scattered T2 hyperintense paranasal sinus mucosal thickening is most prominent in the left maxillary and left sphenoid sinuses. The adenoid tonsils are mildly prominent. IMPRESSION IMPRESSION: 1. Mild cerebellar tonsillar ectopia, right greater than left. 2. No other intracranial abnormalities. If the report is "FINALIZED" it indicates that the attending/staff radiologist has reviewed the images and agrees with the resident's interpretation. . Dictated By: Abhinav Schuster MD, 05/03/2018 11:07 AM I have reviewed the study and agree with the findings in this report. Signed By: Mohinder Chou MD, 05/03/2018 11:49 AM Performing Organization Address City/State/Zipcode Phone Number SMS BMP POC (04/26/2018 11:24 AM F[employer] W[employer] EQUIPMENT OPERATOR) CO2 POC 22 21 - 32 mmol/L [facility] Chloride POC 108 (H) 98 - 107 mmol/L [facility] Potassium POC 3.6 3.50 - 5.10 [facility] mmol/L Sodium POC 144 136 - 145 mmol/L [facility] Glucose POC 94 74 - 106 mg/dL [facility] Urea Nitrogen POC 10 7 - 18 mg/dL [facility] 1 Creatinine POC 0.6 0.6 - 1.3 mg/dL [facility] 1 Calcium Ionized POC 1.20 1.15 - 1.29 [facility] 1 mmol/L Hemoglobin POC 14.3 12.0 - 16.0 g/dL [facility] 1 Hematocrit POC 42.0 37.0 - 47.0 % [facility] 1 GFR, Estimated >60 mL/min/1.73 m2 [facility] 1 GFR, Estim, Afr-Am >60 mL/min/1.73 m2 [facility] 1 Performing Organization Address City/[facility] Phone Number MISYS [facility] 1 HIV-1/HIV-2 ROUTINE SCREENING (04/23/2018 8:41 AM F[employer] W[employer] EQUIPMENT OPERATOR) HIV-1/HIV-2 Negative NEG [facility] 4 Performing Organization Address [facility] Phone Number M[facility]YS [facility] 4 HEMOGLOBIN A1C (04/23/2018 8:41 AM F[employer] W[employer] EQUIPMENT OPERATOR) Hemoglobin A1c 4.9 4.3 - 6.1 % [facility]UN[facility] Est Average Gluc 93.9 mg/dL [facility] Specimen Blood Performing Organization Address [facility] Phone Number MISYS DIAGNOSTIC IMMUNOLOGY COMPREHENSIVE METABOLIC PANEL(DBIL NOT INCLUDED) (04/23/2018 8:41 AM F[employer] AND WASH EQUIPMENT OPERATOR) Albumin 4.4 3.7 - 5.3 g/dL [facility] 1 Calcium 9.1 8.6 - 10.3 mg/dL [facility] 1 CO2 21 21 - 31 mmol/L [facility] 1 Chloride 113 (H) 98 - 107 mmol/L [facility] 1 Creatinine 0.60 0.6 - 1.2 mg/dL [facility] 1 Glucose 94 70 - 110 mg/dL [facility] 1 Alk Phos 63 34 - 104 U/L [facility] 1 Potassium 4.2 3.5 - 5.1 mmol/L [facility] 1 Sodium 142 136 - 145 mmol/L [facility] 1 ALT 9 7 - 52 U/L [facility] 1 AST 9 (L) 13 - 39 U/L [facility] 1 Urea Nitrogen 14 7 - 25 mg/dL [facility] 1 T Bilirubin 0.4 0.2 - 1.1 mg/dL [facility] 1 T Protein 7.0 6.0 - 8.3 g/dL [facility] 1 GFR, Estimated >60 mL/min/1.73 m2 [facility] 1 GFR, Estim, Afr-Am >60 mL/min/1.73 m2 [facility] 1 Anion Gap 8 [facility] 1 Specimen Blood Performing Organization Address [facility] Phone Number Red MapacheANA M [facility] 1 LEVETIRACETAM (04/23/2018 8:41 AM F[employer] W[employer] EQUIPMENT OPERATOR) Levetiracetam 48.0 LABORATORY Reference range: 10.0 to 40.0 [employer] OF Unit: ug/mL JODI (H) Specimen Blood Performing Organization Address City/[facility] Cent[facility] Phone Number [facility] [address] [place] [address] JODI [address] TSH (04/23/2018 8:41 AM F[employer] W[employer] EQUIPMENT OPERATOR) TSH 0.80 0.57 - 3.74 uIU/mL BT [facility] 1 Specimen Blood Performing Organization Address [facility] Phone Number Red MapacheYS BT [facility] 1 FREE T4 (04/23/2018 8:41 AM F[employer] W[employer] EQUIPMENT OPERATOR) Free T4 0.93 0.61 - 1.18 BT [facility] 1 Comment: ng/dl females: 1st Trimester-0.52-1.10 ng/dL 2nd Trimester=0.45-0.99 ng/dL 3rd Trimester=0.48-0.95 ng/dL Specimen Blood Performing Organization Address [facility] Phone Number Red MapacheYS BT [facility] 1 MAGNESIUM (04/23/2018 8:41 AM F[employer] W[employer] EQUIPMENT OPERATOR) Magnesium 1.8 (L) 1.9 - 2.7 mg/dL BT [facility] 1 Specimen Blood Performing Organization Address [facility] Phone Number Red MapacheYS BT [facility] 1 LIPID PROFILE (04/23/2018 8:41 AM [employer] EQUIPMENT OPERATOR) Cholesterol 193 mg/dL BT [facility] 1 Comment: REFERENCE RANGE: Desirable: <200 mg/dL Borderline: 200-240 mg/dL High Risk: >240 mg/dL Triglyceride 68 <150 mg/dL [facility] 1 Comment: REFERENCE RANGE: Normal: <150 mg/dL Borderline High: 150-199 mg/dL High: 200-499 mg/dL Very High: >zp=296 mg/dL HDL 70 mg/dL [facility] 1 Comment: Increased CHD risk: <40 mg/dL Decreased CHD risk: >60 mg/dL LDL 109 mg/dL [facility] 1 Comment: REFERENCE RANGE: Optimal: <100 mg/dL Near Optimal: 100-129 mg/dL Borderline High: 130-159 mg/dL High: 160-189 mg/dL Very High: >cv=762 mg/dL Specimen Blood Performing Organization Address City/State/Zipcode Phone Number MISYS [facility] 1 CBC/DIFF (04/23/2018 8:41 AM F[employer] W[employer] EQUIPMENT OPERATOR) WBC 5.8 4.5 - 11.0 K/uL BT [facility] 2 RBC 4.96 4.20 - 5.40 M/uL [facility] 2 Hemoglobin 13.4 12.0 - 16.0 g/dL [facility] 2 Hematocrit 41.9 37.0 - 47.0 % [facility] 2 MCV 85 82 - 92 fL [facility] 2 MCH 27.0 27.0 - 32.0 pg BT [facility] 2 MCHC 32.0 32.0 - 36.0 g/dL [facility] 2 RDW 42.8 36.4 - 46.3 fL [facility] 2 Platelet 278 150 - 400 K/uL [facility] 2 Mean Platelet Volume 11.7 9.4 - 12.4 fL [facility] 2 Percent NRBC 0.0 [facility] 2 Absolute NRBC 0.00 [facility] 2 Neutrophil 53.3 34.0 - 70.0 % [facility] 2 Lymphocyte 33.3 20.0 - 50.0 % [facility] 2 Monocyte 7.0 5.0 - 12.0 % BT [facility] 2 Eosinophil 5.7 (H) 0.7 - 5.0 % BT [facility] 2 Basophil 0.5 0.1 - 1.2 % BT [facility] 2 Pct Immat Gran 0.2 0.0 - 0.5 BT [facility] 2 Neutrophil, Abs 3.11 1.56 - 6.13 K/uL BT [facility] 2 Lymphocyte, Abs 1.94 1.18 - 3.74 K/uL BT [facility] 2 Monocyte, Abs 0.41 (H) 0.24 - 0.36 K/uL BT [facility] 2 Eosinophil, Abs 0.33 0.04 - 0.36 K/uL BT [facility] 2 Basophil, Abs 0.03 0.01 - 0.08 K/uL BT [facility] 2 Absol Immat Gran 0.01 0.00 - 0.03 K/uL BT [facility] 2 Specimen Blood Performing Organization Address City/State/Zipcode Phone Number MISYS BT [facility] 2 after 05/11/2017 Insurance Payer Benefit Plan / Subscriber ID Effective Phone Address Type Group Dates [facility] xxxxxxxxxxxx 2018-Prese [phone] HEALTH CHOICE [address]ICE [phone] [place] [address] [place] MED[place] [id number] WOMEN'S xxxxxxxxx 2017-Prese [phone] [address] HEALTH [address]GRAM [phone] [place] [address] HCHD PLAN HCHD PLAN 2 xxxxx 2018-01/27 [phone] 04/2018 [place] [address] [address] F[address] y (Home) [place] [id number] Cam[place] Cain Self 2000 [phone] (Home) [place] [id number]
--- OUTSIDE RECORDS SUMMARY | 2018-05-12 09:03 | XMS REPORT | Clinical Summary ---
:2000 Author Organization [place] [facility] Address [address] [place] [address] Care Team Providers Name Role Phone Mary Anne Austin MD Primary Care Provider Allergies No Known Allergies Medications Medication Sig Dispensed Refills Start Date End Date Status levETIRAcetam Take 1,000 mg 0 Active (KEPPRA) 500 MG by mouth tablet every morning. topiramate Take 300 mg 0 Active (TOPAMAX) 100 MG by mouth 2 tablet (two) times a day. levETIRAcetam Take 1,500 [...] (two) times a day for 7 days. oseltamivir Take 1 10 capsule 0 04/27/2018 05/02/2018 (TAMIFLU) 75 MG capsule (75 capsule mg total) by mouth every 12 (twelve) hours for 5 days. Active Problems Not on file Encounters Date Type Specialty Care Team Description 04/27/2018 Emergency Emergency Medicine Emily Moyer Influenza ( Primary Dx); MD Francois Fever, unspecified fever cause 04/22/2018 Emergency Emergency Medicine Zak Cormier Seizure ([facility]) DO Jorge (Primary Dx) 02/23/2018 - Emergency Emergency Medicine Manoj Carlson MD Seizure ([facility] ) 02/24/2018 (Primary Dx) 02/01/2018 Emergency Emergency Medicine Ezequiel Campos, Recurrent seizures DO (HCC) (Primary Dx) 01/18/2018 Emergency Emergency Medicine Zak Cormier Seizure ( Primary Dx) B., DO 12/16/2017 Emergency Emergency Medicine Garrick Jay Seizures ( Primary Dx) MD Boby 12/10/2017 - Emergency Emergency Medicine AravindMarquise Seizure disorder 12/11/2017 Nahun Lea MD (Primary Dx) 08/30/2017 - Emergency Emergency Medicine Tyree Hurt MD Seizure ( Primary Dx); 08/31/2017 Acute cystitis without hematuria 07/13/2017 Emergency Emergency Medicine Zak Villegas Breakthrough seizure MD Flakito (Primary Dx) 07/06/2017 - Emergency Emergency Medicine Brody Canela MD Seizure ( Primary Dx) 07/07/2017 after 05/11/2017 Social History Tobacco Use Types Packs/Day Years [...] Vital Sign Reading Time Taken Blood Pressure 105/60 04/27/2018 4:49 PM [employer] Pulse 123 04/27/2018 4:49 PM [employer] Temperature 37.9 C (100.3 F) 04/27/2018 4:49 PM [employer]ENDANT Respiratory Rate 16 04/27/2018 4:49 PM [employer] Oxygen Saturation 96% 04/27/2018 4:49 PM [employer]ENDANT Inhaled Oxygen Concentration - - Weight 68.5 kg (151 lb) 04/27/2018 3:20 PM [employer] ATTENDANT Height 160 cm (5' 3") 04/27/2018 3:20 PM [employer] Body Mass Index 26.75 04/27/2018 3:20 PM [employer]END[employer] Plan of Treatment Health Maintenance Due Date Last Done Comments CHLAMYDIA SCREENING 2014 INFLUENZA VACCINE 11/25/2017 Procedures Procedure Name Priority Date/Time Associated Comments Diagnosis HCG QUALITATIVE, URINE Routine 04/27/2018 3:56 Results for this SCREEN PM [employer] procedure are in the results section. URINALYSIS SCREEN AND Routine 04/27/2018 3:56 Results for this MICROSCOPY, WITH REFLEX PM [employer] procedure are in TO CULTURE the results section. URINE CULTURE Routine 04/27/2018 3:56 Results for this PM [employer] procedure are in the results section. STREP SCREEN CULTURE STAT 04/27/2018 3:55 Results for this PM [employer] procedure are in the results section. GROUP A STREP, RAPID Routine 04/27/2018 3:54 Results for this ANTIGEN PM [employer] procedure are in the results section. INFLUENZA ANTIGEN Routine 04/27/2018 3:54 Results for this PM [employer] procedure are in the results section. ESTIMATED GFR STAT 04/22/2018 5:17 Results for this PM [employer] procedure are in the results section. CREATINE KINASE, TOTAL STAT 04/22/2018 5:17 Results for this (CPK) PM [employer] procedure are in the results section. BASIC METABOLIC PANEL STAT 04/22/2018 5:17 Results for this PM [employer] procedure are in the results section. HC COMPLETE BLD COUNT STAT 04/22/2018 5:14 Results for this W/AUTO DIFF PM [employer] procedure are in the results section. URINALYSIS SCREEN AND STAT 04/22/2018 4:40 Results for this MICROSCOPY, WITH REFLEX PM [employer]END[employer] procedure are in TO CULTURE the results section. HCG QUALITATIVE, URINE STAT 04/22/2018 4:40 Results for this SCREEN PM [employer] procedure are in the results section. URINE CULTURE STAT 04/22/2018 4:40 Results for this PM [employer] procedure are in the results section. ESTIMATED GFR STAT 02/23/2018 10:50 Results for [...] in the results section. after 05/11/2017 Results Urinalysis screen and microscopy, with reflex to culture (04/27/2018 3:56 PM [employer] ATTENDANT)Only the most recent of6 resultswithin the time period is included. Specimen site Clean catch [facility] Color, UA Yellow [facility] Appearance, UA Cloudy [facility] Specific gravity, UA 1.020 1.001 - 1.035 [facility] pH, UA 7.0 5.0 - 8.5 [facility] Protein, UA Negative Negative [facility] Glucose, UA Negative Negative [facility] Ketones, UA Negative Negative [facility] Bilirubin, UA Negative Negative [facility] Blood, UA Negative Negative [facility] Nitrite, UA Negative Negative [facility] Urobilinogen, UA Negative <2.0 [facility] Leukocyte esterase, UA Negative Negative [facility] Epithelial cells, UA Many /HPF [facility] WBC, UA 1 0 - 5 /HPF [facility] RBC, UA 3 0 - 5 /HPF [facility] Bacteria, UA None seen None seen [facility] Yeast, UA None seen [facility] Yeast with pseudohyphae, UA None seen [facility] Amorphous crystals Few [facility] Specimen Urine Performing Organization Address City/State/Zipcode Phone Number [facility] DEPARTMENT OF PATHOLOGY AND [facility] [place] [address] [facility] [address] [facility] [place] [address] hCG qualitative, urine screen (04/27/2018 3:56 PM [employer] ATTENDANT)Only the most recent of6 resultswithin the time period is included. hCG qualitative, urine Negative Negative [facility] Comment: [facility] The manufacturers stated sensitivity of HcG test for serum is >/=10 mIU/ml and urine is >/=20mIU/ml. Specimen Urine Performing Organization Address City/[facility]/[employer] Phone Number [facility] DEPARTMENT OF PATHOLOGY AND [address] [place], [place] [id number] [place] [address] [address] [facility] [place] [address] Urine culture (04/27/2018 3:56 PM [employer] ATTENDANT)Only the most recent of6 resultswithin the time period is included. Urine culture SEE COMMENTComment: Bacteriuria [facility] negative. HOSPITAL Specimen Urine Performing Organization Address [facility] Phone Number [facility] DEPARTMENT OF PATHOLOGY AND [address] [facility] [place] [address] [facility] [address] [facility] [place] [address] Strep screen culture (04/27/2018 3:55 PM [employer] ATTENDANT) Strep screen culture No beta hemolytic Streptococci isolated [facility] isolate Comment: HOSPITAL Specimen Information Specimen Source: Throat Specimen Site: Not otherwise specified Specimen Throat - Not otherwise specified Performing Organization Address City/[facility]/Zipcode Phone Number [facility] DEPARTMENT OF PATHOLOGY AND [address] [place] [address] [address] Group A strep, rapid antigen (04/27/2018 3:54 PM [employer]ICE ATTENDANT) Group A strep, rapid Negative for Group A Streptococcus antigen. [facility] antigen result Comment: [facility] Specimen Information Specimen Source: Throat Specimen Site: Not otherwise specified Specimen Throat - Not otherwise specified Performing Organization Address City/State/Zipcode Phone Number [facility] DEPARTMENT OF PATHOLOGY AND [address] [facility] [place] [address] [facility] [address] [facility] [address] [place] [phone] Influenza antigen (04/27/2018 3:54 PM [employer] ATTENDANT) Influenza antigen Positive for Influenza A antigen. [facility] Negative for Flu B [facility] (A) Comment: Specimen Information Specimen Source: Nares Specimen Site: Right Specimen Nares - Right Performing Organization Address City/State/Zipcode Phone Number [facility] DEPARTMENT OF PATHOLOGY AND [address] [place] [id number] [place] [address] [address] [address] [place] [phone] Estimated GFR (04/22/2018 5:17 PM [employer] ATTENDANT)Only the most recent of3 resultswithin the time period is included. Estimated GFR >=90 mL/min/1.73 m2 [facility] Comment: [facility] CatergoryUnitsInterpretation G1 >=90 Normal or high G2 60-89Mildly decreased [id number] to moderately decreased [id number] to severely decreased G4 15-29Severely decreased G5 <15Kidney failure The eGFR was calculated using the Chronic Kidney Disease Epidemiology Collaboration (CKD-EPI) equation. Interpretation is based on recommendations of the National Kidney Foundation-Kidney Disease Outcomes Quality Initiative (NKF-KDOQI) published in 2014. Specimen Plasma specimen Performing Organization Address City/[facility]/Zipcode Phone Number [facility] DEPARTMENT OF PATHOLOGY AND [address] [place] [phone] [place] [address] [place] [address] [place] [phone] Creatine kinase, total (CPK) (04/22/2018 5:17 PM [employer]ICE ATTENDANT)Only the most recent of2 resultswithin the time period is included. Creatine kinase 85 26 - 192 U/L [facility] Specimen Plasma specimen Performing Organization Address City/[facility]/Zipcode Phone Number [facility] DEPARTMENT OF PATHOLOGY AND [address] [facility] [address] [place] [phone] [place] [address] [address] [facility] [address] [place] [phone] Basic metabolic panel (04/22/2018 5:17 PM [employer]ICE ATTENDANT)Only the most recent of4 resultswithin the time period is included. Sodium 144 135 - 150 mEq/L [facility] Potassium 3.9 3.5 - 5.0 mEq/L [facility] Chloride 110 98 - 112 mEq/L [facility] CO2 23 (L) 24 - 31 mmol/L [facility] Anion gap 11@ANIO 7 - 15 mEq/L [facility] BUN 14 7 - 18 mg/dL [facility] Creatinine 0.70 0.50 - 0.90 mg/dL [facility] Glucose 97 65 - 100 mg/dL [facility] Calcium 9.5 8.3 - 10.2 mg/dL [facility] Specimen Plasma specimen Performing Organization Address City/State/Zipcode Phone Number [facility] DEPARTMENT OF PATHOLOGY AND [address] [place] [address] GENOMIC MEDICINE [facility] [address] [place] [address] CBC with platelet and differential (04/22/2018 5:14 PM [employer]ICE ATTENDANT)Only the most recent of5 resultswithin the time period is included. WBC 8.5 4.5 - 12.5 k/uL [facility] RBC 5.11 4.04 - 5.86 m/uL [facility] HGB 13.8 11.5 - 15.3 g/dL [facility] HCT 42.2 34.0 - 45.0 % [facility] MCV 82.6 80.0 - 98.0 fL [facility] MCH 27.0 27.0 - 34.0 pg [facility] MCHC 32.7 31.5 - 36.5 g/dL [facility] RDW - SD 40.3 37.0 - 51.0 fL [facility] MPV 11.0 (H) 7.4 - 10.4 fL [facility] Platelet count 285 150 - 400 k/uL [facility] Nucleated RBC 0.00 /100 WBC [facility] Neutrophils 68.2 (H) 36.0 - 66.0 % [facility] Lymphocytes 20.6 (L) 24.0 - 44.0 % [facility] Monocytes 6.9 (H) 0.0 - 6.0 % [facility] Eosinophils 3.4 0.0 - 6.0 % [facility] Basophils 0.5 0.0 - 1.2 % [facility] Immature granulocytes 0.4 0.0 - 1.0 % [facility] Specimen Blood Performing Organization Address [facility]/[place] Phone Number [facility] DEPARTMENT OF PATHOLOGY AND [address] [place] [address] GENOMIC MEDICINE [facility] [address] [place] [address] ECG 12 lead (02/01/2018 10:24 PM CDT)Only the most recent of3 resultswithin the time period is included. Ventricular rate 117 [facility] Atrial rate 117 [facility] ND interval 152 [facility] QRSD interval 88 [...] nt change was found- Performing Organization Address City/[facility]/[place] Phone Number [facility] MUSE [address] [place] [address] ECG ED Preliminary Interpretation - NOT AN ORDER (02/01/2018 10:15 PM CDT)Only the most recent of3 resultswithin the time period is included. Narrative Performed At Ezequiel Campos DO 02/01/2018 11:39 PM ECG ED Preliminary Interpretation - Not an Order Performed by: EZEQUIEL CAMPOS Authorized by: EZEQUIEL CAMPOS ECG reviewed by ED Physician in the absence of a enrollment clerk: yes Interpretation: Interpretation: abnormal Rate: ECG rate:117 ECG rate assessment: tachycardic Rhythm: Rhythm: sinus tachycardia Ectopy: Ectopy: none QRS: QRS axis:Normal Conduction: Conduction: normal ST segments: ST segments:Normal T waves: T waves: normal Lactic acid level, SEPSIS - Now and repeat 2x every 3 hours (12/16/2017 11:38 AM CDT) Lactic acid 2.2 0.5 - 2.2 mmol/L [facility] DEPARTMENT OF PATHOLOGY AND GENOMIC MEDICINE Specimen Blood Performing Organization Address [facility] Phone Number [facility] DEPARTMENT OF PATHOLOGY AND [address] [place] [address]. [place] [address] [employer] [facility] Estimated GFR (12/16/2017 11:38 AM CDT)Only the most recent of4 resultswithin the time period is included. GFR Non Af Amer >90 mL/min/1.73 m2 [facility] DEPARTMENT OF PATHOLOGY AND GENOMIC MEDICINE GFR Af Amer >90 mL/min/1.73 m2 [facility] DEPARTMENT OF Comment: PATHOLOGY AND GENOMIC Chronic [...] Americans. Specimen Plasma specimen Performing Organization Address [facility]/[employer] Phone Number [facility] DEPARTMENT OF PATHOLOGY AND [address] [place] [address] [address] [place], [place] [id number] [place] [address] Lipase level (12/16/2017 11:38 AM CDT) Lipase 27 13 - 60 U/L [facility] DEPARTMENT OF PATHOLOGY AND GENOMIC MEDICINE Specimen Plasma specimen Performing Organization Address City/[facility]/[employer] Phone Number [facility] DEPARTMENT OF PATHOLOGY AND [address] [place] [address]. [place] [address] [employer] Hepatic function panel (12/16/2017 11:38 AM CDT) Albumin 3.9 3.5 - 5.0 g/dL [facility] DEPARTMENT OF PATHOLOGY AND GENOMIC MEDICINE Total bilirubin 0.3 0.2 - 1.2 mg/dL [facility] DEPARTMENT OF PATHOLOGY AND GENOMIC MEDICINE Bilirubin direct <0.2 0.0 - 0.4 mg/dL [facility] DEPARTMENT OF PATHOLOGY AND GENOMIC MEDICINE Alkaline phosphatase 74 0 - 104 U/L [facility] DEPARTMENT OF PATHOLOGY AND GENOMIC MEDICINE Protein 7.4 6.3 - 8.3 g/dL [facility] DEPARTMENT OF PATHOLOGY AND GENOMIC MEDICINE ALT 13 5 - 50 U/L [facility] DEPARTMENT OF PATHOLOGY AND GENOMIC MEDICINE AST 17 10 - 35 U/L [facility] DEPARTMENT OF PATHOLOGY AND GENOMIC MEDICINE Specimen Plasma specimen Performing Organization Address City/[facility]/[place] Phone Number [facility] DEPARTMENT OF PATHOLOGY AND [address] [place] [address] GENOMIC MEDICINE Gram stain (12/10/2017 10:59 PM CDT)Only the most recent of3 resultswithin the time period is included. Gram stain result No WBC's or organisms seen. [facility] DEPARTMENT OF PATHOLOGY Comment: AND GENOMIC MEDICINE Specimen Information Specimen Source: Urine Specimen Site: Clean catch Specimen Urine Performing Organization Address [facility] Phone Number [facility] DEPARTMENT OF PATHOLOGY AND [address] [place] [address] [facility] MEDICINE XR Chest 1 Vw Portable (12/10/2017 10:16 PM CDT) Narrative Performed At EXAMINATION:XR CHEST 1 VW PORTABLE [facility] CLINICAL HISTORY:seizure COMPARISON:04/11/2014 IMPRESSION: Mild prominence of pulmonary interstitial lung markings is suspicious for mild edema or atypical infection. No effusions or pneumothorax. Cardiomediastinal silhouette is within normal limits. No acute osseous abnormalities. [facility]-[id number] Procedure Note [facility], Radiology Results Incoming - 12/10/2017 10:28 PM CDT EXAMINATION: XR CHEST 1 VW PORTABLE CLINICAL HISTORY: seizure COMPARISON: 04/11/2014 IMPRESSION: Mild prominence of pulmonary interstitial lung markings is suspicious for mild edema or atypical infection. No effusions or pneumothorax. Cardiomediastinal silhouette is within normal limits. No acute osseous abnormalities. [facility]-[id number] Performing Organization Address [facility]/[employer] Phone Number [facility] [address] [place] [address] Troponin (12/10/2017 9:38 PM CDT) Troponin <0.30 0.00 - 0.30 ng/mL [facility] DEPARTMENT OF PATHOLOGY Comment: AND GENOMIC MEDICINE 0.11 - 1.49 ng/mlMay indicate increased risk of acute coronary syndrome. >=1.5 ng/mlConsistent with acute myocardial infarction. The diagnostic value of a single normal or non-diagnostic result is questionable.Serial samples at 2-6 hour intervals are required to rule out acute myocardial injury. Specimen Plasma specimen Performing Organization Address City/State/Zipcode Phone Number [facility] DEPARTMENT OF PATHOLOGY AND [address] [place] [address]. [address] B natriuretic peptide (12/10/2017 9:38 PM CDT) BNP 9 0 - 100 pg/mL [facility] DEPARTMENT OF PATHOLOGY AND GENOMIC MEDICINE Specimen Blood Performing Organization Address City/[facility]/[employer] Phone Number [facility] DEPARTMENT OF PATHOLOGY AND [address] [place] [address]. [address] Comprehensive metabolic panel (12/10/2017 9:38 PM CDT)Only the most recent of3 resultswithin the time period is included. Sodium 143 135 - 150 mEq/L [facility] DEPARTMENT OF PATHOLOGY AND GENOMIC MEDICINE Potassium 3.7 3.5 - 5.0 mEq/L [facility] DEPARTMENT OF PATHOLOGY AND GENOMIC MEDICINE Chloride 110 98 - 112 mEq/L [facility] DEPARTMENT OF PATHOLOGY AND GENOMIC MEDICINE CO2 18 (L) 24 - 31 mmol/L [facility] DEPARTMENT OF PATHOLOGY AND GENOMIC MEDICINE Anion gap 15@ANIO 7 - 15 mEq/L [facility] DEPARTMENT OF PATHOLOGY AND GENOMIC MEDICINE BUN 7 7 - 18 mg/dL [facility] DEPARTMENT OF PATHOLOGY AND GENOMIC MEDICINE Creatinine 0.60 0.50 - 0.90 mg/dL [facility] DEPARTMENT OF PATHOLOGY AND GENOMIC MEDICINE Glucose 101 (H) 65 - 100 mg/dL [facility] DEPARTMENT OF PATHOLOGY AND GENOMIC MEDICINE Calcium 8.9 8.3 - 10.2 mg/dL [facility] DEPARTMENT OF PATHOLOGY AND GENOMIC MEDICINE Protein 7.1 6.3 - 8.3 g/dL [facility] DEPARTMENT OF PATHOLOGY AND GENOMIC MEDICINE Albumin 3.7 3.5 - 5.0 g/dL [facility] DEPARTMENT OF PATHOLOGY AND GENOMIC MEDICINE A/G ratio 1.1 0.7 - 3.8 [facility] DEPARTMENT OF PATHOLOGY AND GENOMIC MEDICINE Alkaline phosphatase 74 0 - 104 U/L [facility] DEPARTMENT OF PATHOLOGY AND GENOMIC MEDICINE AST 15 10 - 35 U/L [facility] DEPARTMENT OF PATHOLOGY AND GENOMIC MEDICINE ALT 11 5 - 50 U/L [facility] DEPARTMENT OF PATHOLOGY AND GENOMIC MEDICINE Total bilirubin <0.3 0.2 - 1.2 mg/dL [facility] DEPARTMENT OF PATHOLOGY AND GENOMIC MEDICINE Specimen Plasma specimen Performing Organization Address City/State/Zipcode Phone Number [facility] DEPARTMENT OF PATHOLOGY AND [address] [place] [address] [facility] Urinalysis, automated with microscopy (08/30/2017 11:54 PM CDT) Color, UA Yellow [facility] DEPARTMENT OF PATHOLOGY AND GENOMIC MEDICINE Appearance, UA Slightly-Cloudy [facility] DEPARTMENT OF PATHOLOGY AND GENOMIC MEDICINE Specific gravity, UA 1.019 1.001 - 1.035 [facility] DEPARTMENT OF PATHOLOGY AND GENOMIC MEDICINE pH, UA 6.0 5.0 - 8.5 [facility] DEPARTMENT OF PATHOLOGY AND GENOMIC MEDICINE Protein, UA Negative Negative [facility] DEPARTMENT OF PATHOLOGY AND GENOMIC MEDICINE Glucose, UA Negative Negative [facility] DEPARTMENT OF PATHOLOGY AND GENOMIC MEDICINE Ketones, UA Negative Negative [facility] DEPARTMENT OF PATHOLOGY AND GENOMIC MEDICINE Bilirubin, UA Negative Negative [facility] DEPARTMENT OF PATHOLOGY AND GENOMIC MEDICINE Blood, UA Negative Negative [facility] DEPARTMENT OF PATHOLOGY AND GENOMIC MEDICINE Nitrite, UA Negative Negative [facility] DEPARTMENT OF PATHOLOGY AND GENOMIC MEDICINE Urobilinogen, UA Negative <2.0 [facility] DEPARTMENT OF PATHOLOGY AND GENOMIC MEDICINE Leukocyte esterase, UA Trace (A) Negative [facility] DEPARTMENT OF PATHOLOGY AND GENOMIC MEDICINE Epithelial cells, UA Many /HPF [facility] DEPARTMENT OF PATHOLOGY AND GENOMIC MEDICINE Round epithelial cells, UA Few 0 - 1 /HPF [facility] DEPARTMENT OF PATHOLOGY AND GENOMIC MEDICINE WBC, UA 11-20 (H) 0 - 4 /HPF [facility] DEPARTMENT OF PATHOLOGY AND GENOMIC MEDICINE RBC, UA 6-10 (H) 0 - 5 /HPF [facility] DEPARTMENT OF PATHOLOGY AND GENOMIC MEDICINE Bacteria, UA Trace None seen [facility] DEPARTMENT OF PATHOLOGY AND GENOMIC MEDICINE Yeast, UA None seen [facility] DEPARTMENT OF PATHOLOGY AND GENOMIC MEDICINE Yeast with pseudohyphae, UA None seen [facility] DEPARTMENT OF PATHOLOGY AND GENOMIC MEDICINE Specimen Urine Performing Organization Address City/State/Zipcode Phone Number [facility] DEPARTMENT OF PATHOLOGY AND [address] [place] [address] [facility] hCG quantitative, serum (08/30/2017 10:30 PM CDT) hCG quantitative, serum <0 0 - 5 mIU/mL [facility] DEPARTMENT OF Comment: PATHOLOGY AND GENOMIC Reference range for HCG Quant applies to males and non- MEDICINE females. Post Menopausal 0.0 - 8.1 mIU/mL Specimen Plasma specimen Performing Organization Address [facility]/[employer] Phone Number [facility] DEPARTMENT OF PATHOLOGY AND [address] [place] [address] [facility] GFR calculation (08/30/2017 10:20 PM CDT)Only the most recent of2 resultswithin the time period is included. GFR calculation See BelowComment: GFR not [facility] DEPARTMENT OF PATHOLOGY valid on patients less than AND GENOMIC MEDICINE 18 years of age. Specimen Plasma specimen Performing Organization Address [facility]/[place] Phone Number [facility] DEPARTMENT OF PATHOLOGY AND [address] [place] [address] [facility] Magnesium level (07/13/2017 10:11 AM CDT) Magnesium 2.20 1.60 - 2.40 mg/dL [facility] DEPARTMENT OF PATHOLOGY AND [facility] Specimen Plasma specimen Performing Organization Address [facility]/[place] Phone Number [facility] DEPARTMENT OF PATHOLOGY AND [address] [place] [address] [facility] MEDICINE POC glucose (07/07/2017 12:25 AM CDT) POC glucose 130 (H) 65 - 100 mg/dL [facility] DEPARTMENT OF PATHOLOGY Comment: AND [employer] MEDICINE Meter ID: [id number] Leasing Coordinator: Xavier Womack Performing Organization Address [facility]/[employer] Phone Number [facility] DEPARTMENT OF PATHOLOGY AND [address] [place] [address] [facility] after 05/11/2017 Advance Directives Patient has advance care planning documents on file. For more information, please contact:Vinny Massey[address] [place] [phone]
--- NOTE | 2018-05-12 09:41 | RAD REPORT ---
EXAM DESCRIPTION: CT - Head Brain Wo Cont - 05/12/2018 9:25 am CLINICAL HISTORY: Seizure COMPARISON: None. TECHNIQUE: Computed axial tomography of the head was obtained. IV contrast was not requested. All CT scans are performed using dose optimization technique as appropriate and may include automated exposure control or mA/KV adjustment according to patient size. FINDINGS: An intracranial bleed is not seen . The ventricles are normal in caliber. No extra-axial fluid collection is noted. Fluid is present within the sphenoid, right maxillary and ethmoid sinus.. Mucoperiosteal thickening i nvolves left maxillary sinus IMPRESSION: No acute intracranial abnormality is seen. If patient's symptoms persist MRI of the bra in would be recommended. Acute sinusitis
[2018-05-12 09:42] LABS: Absolute Lymphocytes (CBC) 1.4 K/uL (0.7-4.9); Absolute Monocytes 0.5 K/uL (0.1-1.3); Absolute Neutrophil 4.3 K/uL (1.8-8.0); Basophils % 1.1 % (0-1.3); Eosinophils % 5.7 % (0-4.4); Hematocrit 38.2 % (36.0-45.0); MPV 8.4 fL (7.6-11.3); Monocytes % 7.6 % (3.3-12.3); RBC Red Blood Cell Count 4.81 M/uL (3.86-4.86)
[2018-05-12 09:56] LABS: BUN Blood Urea Nitrogen 17 mg/dL (7-18); Bicarbonate 21 mmol/L (21-32); Glucose Level 84 mg/dL (74-106); Potassium 3.8 mmol/L (3.5-5.1); Sodium Level 146 mmol/L (136-145)
[2018-05-12] MEDS ORDERED: NA CHLORIDE 0.9% 500 ML ONE (10:09)
--- NOTE | 2018-05-12 10:11 | ER ---
Nurse's Notes [facility] Name: Saloni Malin Age: 17 yrs Sex: Female : 2000 Arrival Date: 05/12/2018 Time: 09:03 Bed 5 Private MD: Diagnosis: Epilepsy and recurrent seizures;Dehydration;Acute sinusitis Presentation: 05/12 08:57 Presenting complaint: EMS states: seizure while at the gym. + head injury, last seizure sv was a week ago. BP 99/43 BS-103. Transition of care: patient was not received from another setting of care. Onset of symptoms was May 12, 2018. Risk Assessment: Do you want to hurt yourself or someone else? Patient reports no desire to harm self or others. Initial Sepsis Screen: Does the patient meet any 2 criteria? No. Patient's initial sepsis screen is negative. Does the patient have a suspected source of infection? No. Patient's initial sepsis screen is negative. Care prior to arrival: Cervical collar in place. Placed on backboard. IV initiated. 20 GA, in the right hand, Glucose check: 103. 08:57 Method Of Arrival: EMS: [facility] sv 08:57 Acuity: KEVAN 3 sv Triage Assessment: 09:00 General: Appears in no apparent distress. comfortable, well developed, Behavior is sv calm, cooperative, appropriate for age. Pain: Complains of pain in scalp Pain currently is 8 out of 10 on a pain scale. Pain began suddenly, 30 min ago. Neuro: Level of Consciousness is awake, alert, obeys commands, Oriented to person, place, time, situation, Moves all extremities. Full function. Respiratory: Respiratory effort is even, unlabored, Respiratory pattern is regular, symmetrical. Derm: Skin is pink, warm \T\ dry. Musculoskeletal: Range of motion: intact in all extremities. Historical: - Allergies: 09:11 No Known Allergies; sv - Home Meds: 09:11 Keppra Oral [Active]; topiramate Oral [Active]; sv - PMHx: 09:11 Panic Attacks; Seizures; sv - PSHx: 09:11 None; sv - Immunization history:: Adult Immunizations up to date. - Social history:: Smoking status: Patient/guardian denies using tobacco. - Family history:: not pertinent. - Ebola Screening: : No symptoms or risks identified at this time. - Hospitalizations: : No recent hospitalization is reported. Screenin:12 Abuse screen: Denies threats or abuse. Denies injuries from another. Nutritional sv screening: No deficits noted. Tuberculosis screening: No symptoms or risk factors identified. Fall Risk No fall in past 12 months (0 pts). Secondary diagnosis (15 points) seizures, IV access (20 points). Ambulatory Aid- None/Bed Rest/Nurse Assist (0 pts). Gait- Normal/Bed Rest/Wheelchair (0 pts) Mental Status- Oriented to own ability (0 pts). Total Nuñez Fall Scale indicates Low Risk Score (25-44 pts). Fall prevention measures have been instituted. Side Rails Up X 2 Placed close to Nursing Station Frequent Obs/Assesments occuring As available Patient and Family Educated on Fall Prevention Program and strategies. Assessment: 10:05 Reassessment: Patient appears in no apparent distress at this time. No changes from sv previously documented assessment. Patient and/or family updated on plan of care and expected duration. Pain level reassessed. Patient is alert, oriented x 3, equal unlabored respirations, skin warm/dry/pink. Vital Signs: 09:09 BP 97 / 65; Pulse 95; Resp 16; Temp 97.8; Pulse Ox 99% ; Weight 68.49 kg; Height 5 ft. sv 3 in. (160.02 cm); Pain 8/10; 09:36 BP 96 / 70; Pulse 93; Resp 16; Pulse Ox 100% ; sv 09:09 Body Mass Index 26.75 (68.49 kg, 160.02 cm) sv [place] Coma Score: 09:00 Eye Response: spontaneous(4). Verbal Response: oriented(5). Motor Response: obeys sv commands(6). Total: 15. ED Course: 08:57 Maintain EMS IV. Dressing intact. Site clean \T\ dry. Gauge \T\ site: 20G right hand. sv 09:03 Patient arrived in ED. em1 09:03 Pawel Ramachandran MD is Attending Physician. rn 09:05 Sheryl Diaz RN is Primary Nurse. sv 09:09 Triage completed. sv 09:11 Arm band placed on. sv 09:12 Seizure precautions initiated. sv 09:12 Patient has correct armband on for positive identification. Placed in gown. Bed in low sv position. Side rails up X2. Pulse ox on. NIBP on. 09:[address] via stretcher. sg 09:23 Initial lab(s) drawn, by me, sent to lab. sg 09:24 CT completed. Patient tolerated procedure well. Patient moved to CT via stretcher. sj Patient moved back from CT. 09:24 CT Head Brain wo Cont In Process Unspecified. EDMS 09:[address]. sv 09:29 Awaiting lab results, Awaiting radiology results. sv 09:42 EKG done, by environmental services floor tech. reviewed by Pawel Ramachandran MD. tc 09:43 Awaiting lab results. sv 10:31 No provider procedures requiring assistance completed. IV discontinued, intact, ss bleeding controlled, No redness/swelling at site. Pressure dressing applied. Administered Medications: 10:04 Drug: NS 0.9% 500 ml Route: IV; Rate: bolus; Site: right hand; sv 10:33 Follow up: IV Status: Completed infusion; IV Intake: 500ml ss Point of Care Testing: Blood Glucose: 09:20 Blood Glucose: 80 mg/dL; sg Ranges: Intake: 10:33 IV: 500ml; Total: 500ml. ss Outcome: 10:09 Discharge ordered by MD. rn 10:31 Discharged to home ambulatory, with friend. ss 10:31 Condition: improved 10:31 Discharge instructions given to patient, family, Instructed on discharge instructions, follow up and referral plans. medication usage, Demonstrated understanding of instructions, follow-up care, medications, Prescriptions given X 1. 10:34 Patient left the ED. ss Signatures: Dispatcher [employer] Sheryl Graves RN RN Mike Dillon RN RN sg Jones, Susan sj Nieto, Roman, MD MD rn Martinez, Eric emKiah Vera RN RN ss Callis, Tiffany, kid club attendant EKG Ttc Corrections: (The following items were deleted from the chart) 09: 08:57 Presenting complaint: EMS states: seizure while at the gym. + head injury, last sv seizure was a week ago. BP 99/43 BS-103 sv 09: 08:57 Care prior to arrival: IV initiated. 20 GA, in the right hand, Glucose check: 103 sv sv
--- NOTE | 2018-05-12 10:11 | EDPHYS ---
Physician Documentation [facility] Name: Saloni Malin Age: 17 yrs Sex: Female : 2000 Arrival Date: 05/12/2018 Time: 09:03 Bed 5 Private MD: ED Physician Pawel Ramachandran HPI: 05/12 09:16 This 17 yrs old Female presents to ER via EMS with complaints of Seizure. rn 09:16 The patient presents after having a single isolated seizure. Seizure onset: just prior rn to arrival. Current symptoms: Currently, the patient is not experiencing any symptoms. The patient has experienced similar episodes in the past. REports at gym, on treadmill, + unwitnessed seizure, + hx of seizures, becoming more frequent, takes keppra, reports compliant, felt fine prior to going to gym, no recent fever, + hit head with mild headache. . Historical: - Allergies: 09:11 No Known Allergies; sv - Home Meds: 09:11 Keppra Oral [Active]; topiramate Oral [Active]; sv - PMHx: 09:11 Panic Attacks; Seizures; sv - PSHx: 09:11 None; sv - Immunization history:: Adult Immunizations up to date. - Social history:: Smoking status: Patient/guardian denies using tobacco. - Family history:: not pertinent. - Ebola Screening: : No symptoms or risks identified at this time. - Hospitalizations: : No recent hospitalization is reported. ROS: 09:16 Constitutional: Negative for fever, chills, and weight loss, Eyes: Negative for injury, rn pain, redness, and discharge, Neck: Negative for injury, pain, and swelling, Cardiovascular: Negative for chest pain, palpitations, and edema, Respiratory: Negative for shortness of breath, cough, wheezing, and pleuritic chest pain, Abdomen/GI: Negative for abdominal pain, nausea, vomiting, diarrhea, and constipation, MS/Extremity: Negative for injury and deformity, Skin: Negative for injury, rash, and discoloration, Neuro: Negative for weakness, numbness, tingling Exam: 09:16 Constitutional: This is a well developed, well nourished patient who is awake, alert, rn and in no acute distress. Head/Face: Normocephalic, small posterior hematoma on scalp, no bleeding, no laceration. Eyes: Pupils equal round and reactive to light, extra-ocular motions intact. Lids and lashes normal. Conjunctiva and sclera are non-icteric and not injected. Cornea within normal limits. Periorbital areas with no swelling, redness, or edema. Neck: in ccollar, no midline tenderness, no deformity Cardiovascular: Regular rate and rhythm with a normal S1 and S2. No gallops, murmurs, or rubs. No JVD. No pulse deficits. Respiratory: Lungs have equal breath sounds bilaterally, clear to auscultation, No increased work of breathing, no retractions or nasal flaring. Abdomen/GI: soft, non-tender Back: No spinal tenderness. Skin: Warm, dry with normal turgor. Normal color with no rashes, no lesions, and no evidence of cellulitis. MS/ Extremity: Pulses equal, no cyanosis. Neurovascular intact. Full, normal range of motion. Equal circumference. Neuro: Awake and alert, GCS 15, oriented to person, place, time, and situation. Cranial nerves II-XII grossly intact. Motor strength 5/5 in all extremities. Sensory grossly intact. Cerebellar exam normal. Vital Signs: 09:09 BP 97 / 65; Pulse 95; Resp 16; Temp 97.8; Pulse Ox 99% ; Weight 68.49 kg; Height 5 ft. sv 3 in. (160.02 cm); Pain 8/10; 09:36 BP 96 / 70; Pulse 93; Resp 16; Pulse Ox 100% ; sv 09:09 Body Mass Index 26.75 (68.49 kg, 160.02 cm) sv [place] Coma Score: 09:00 Eye Response: spontaneous(4). Verbal Response: oriented(5). Motor Response: obeys sv commands(6). Total: 15. MDM: 09:03 Patient medically screened. rn 10:07 Differential diagnosis: seizure, dehydration. Data reviewed: vital signs, nurses notes, technology internship test result(s), radiologic studies, CT scan, and as a result, I will discharge patient. Counseling: I had a detailed discussion with the patient and/or guardian regarding: the historical points, exam findings, and any diagnostic results supporting the discharge/admit diagnosis, lab results, radiology results, the need for outpatient follow up, to return to the emergency department if symptoms worsen or persist or if there are any questions or concerns that arise at home. Response to treatment: the patient's condition has returned to base line, and as a result, I will discharge patient. Special discussion: I discussed with the patient/guardian in detail that at this point there is no indication for admission to the hospital. It is understood, however, that if the symptoms persist or worsen the patient needs to return immediately for re-evaluation. Based on the history and exam findings, there is no indication for further emergent testing or inpatient evaluation. I discussed with the patient/guardian the need to see the neurologist for further evaluation of the symptoms. ED course: Has neuro appt f/u, + acute sinusitis, will treat with abx, mild dehydration. . 05/12 09:04 Order name: CBC with Diff; Complete Time: 09:56 rn 05/12 09:04 Order name: Basic Metabolic Panel; Complete Time: 09:57 rn 05/12 09:04 Order name: CT Head Brain wo Cont; Complete Time: 09:42 rn 05/12 09:04 Order name: IV Start; Complete Time: 09:13 rn 05/12 09:04 Order name: EKG; Complete Time: 09:05 rn 05/12 09:04 Order name: EKG - Nurse/Tech; Complete Time: 09:58 rn Administered Medications: 10:04 Drug: NS 0.9% 500 ml Route: IV; Rate: bolus; Site: right hand; sv 10:33 Follow up: IV Status: Completed infusion; IV Intake: 500ml ss Point of Care Testing: Blood Glucose: 09:20 Blood Glucose: 80 mg/dL; sg Ranges: Critical Glucose Levels:Adult <50 mg/dl or >400 mg/dl <40 mg/dl or >180 mg/dl Disposition: 05/12/18 10:09 Discharged to Home. Impression: Epilepsy and recurrent seizures, Dehydration, Acute sinusitis. - Condition is Stable. - Discharge Instructions: Seizure, Adult. - Prescriptions for Augmentin 875- 125 mg Oral Tablet - take 1 tablet by ORAL route every 12 hours for 10 days; 20 tablet. - Medication Reconciliation Form, Thank You Letter, Antibiotic Education, Prescription Opioid Use form. - Follow up: Private Physician; When: As needed; Reason: Recheck today's complaints, Re-evaluation by your physician. - Problem is new. - Symptoms have improved. Signatures: Dispatcher [employer] Sheryl Graves RN Pawel Coleman MD MD rn Smirch, Shelby, RN RN ss Corrections: (The following items were deleted from the chart) 10:33 09:04 Urine Dipstick-Ancillary ordered. rn ss 10:34 09:04 Urine Test ordered. rn ss 10:34 10:09 05/12/2018 10:09 Discharged to Home. Impression: Epilepsy and recurrent seizures; ss Dehydration; Acute sinusitis. Condition is Stable. Forms are Medication Reconciliation Form, Thank You Letter, Antibiotic Education, Prescription Opioid Use. Follow up: Private Physician; When: As needed; Reason: Recheck today's complaints, Re-evaluation by your physician. Problem is new. Symptoms have improved. rn
--- NOTE | 2018-05-12 10:21 | EKG ---
Test Date: 2018-05-12 Test Time: 09:31:29 Production Proofreader: BRET MEASUREMENT RESULTS: Intervals: Rate: 84 HI: 154 QRSD: 94 QT: 382 QTc: 451 [place]: P: 67 HI: 154 QRS: 55 T: 45 INTERPRETIVE STATEMENTS: Normal sinus rhythm with sinus arrhythmia Incomplete right bundle branch block Borderline ECG Compared to ECG 04/16/2018 22:42:04 Incomplete right bundle-branch block now present Sinus tachycardia no longer present Electronically Signed On 05-12-18 10:21:00 GIFT SHOP CLERK by Delmar Will
== END 2018-05-12 10:34 | disposition home or self-care (01) ==
LOC: ER 09:00
DX: G40.909 Epilepsy, unspecified, not intractable, without status epilepticus (principal); E86.0 Dehydration; J01.90 Acute sinusitis, unspecified; I45.10 Unspecified right bundle-branch block; Z79.899 Other long term (current) drug therapy
CPT/HCPCS: 36415; 70450; 80048; 82962; 85025; 93005; 99285

== ENCOUNTER 2018-05-19 09:05 | Emergency (ER) | payer SELFPAY ==
--- OUTSIDE RECORDS SUMMARY | 2018-05-19 09:08 | XMS REPORT ---
:2000 Author Organization [facility] [place] [address] Phone Allergies, Adverse Reactions, Alerts Allergy Name [...] Date Name Instruction GABAPENTIN Take 1 GABAPENTIN 69957506329 Active Myla Active 300 MG ORAL tablet By Wallace CAPSULE Mouth BID PMHNP TEMAZEPAM 15 Take 1 TEMAZEPAM 81843774810 Active Myla Active MG ORAL tablet By Wallace CAPSULE Mouth QHS PMHNP As Needed for insomnia JAVIPPRA 1000 BID LEVETIRACETAM 14547537197 Active Myla Active MG ORAL Wallace TABLET PMHNP TOPAMAX 300 mg BID TOPIRAMATE 64695307054 Active Myla Active TABLET TABS Wallace PMHNP ATIVAN 0.5 Take 1 LORAZEPAM 22484772228 Active Myla Active MG ORAL tablet By Wallace TABLET Mouth BID PMHNP As Needed for anxiety ONDANSETRON 1 tab By ONDANSETRON 131232 ONDANSETRON Inactive HCL 4 MG ORAL Mouth HCL 4 MG ORAL HCL TABLET q6h As TABLET Needed nausea ONDANSETRON 1 tab ONDANSETRON [id number] No Bessy Active HCL 4 MG By [...] Code Facility Est Patient Exp Myla Garzaley CPT-44032 [facility] 13:55:59 CDT Problem - 20570 [facility] Est Patient Exp Bessy Parisi MD CPT-49819 [facility] 11:46:05 CDT Problem - 15521 (res) Practice Est Patient Exp Myla Garzaley CPT-91722 [facility] 10:59:44 CDT Problem - 60523 [facility] Est Patient Exp Myla Garzaley CPT-39270 [facility] 17:38:22 CDT Problem - 43014 [facility] Procedures Code Procedure Name Date Entry Date Standard Description CPT-72005 Diagnostic evaluation with medical - 84845 11:57:40 CDT
--- OUTSIDE RECORDS SUMMARY | 2018-05-19 09:08 | XMS REPORT | Clinical Summary ---
:2000 Author Organization [facility] Address [address] [place] [id number] Care Team Providers Name Role Phone Mary [...] 04/22/2018 Emergency Emergency Medicine Zak Cormier Seizure ([facility]) DO Jorge (Primary Dx) 02/23/2018 - Emergency Emergency Medicine Manoj Carlson MD Seizure ([facility] ) 02/24/2018 (Primary Dx) 02/01/2018 [...] MD Seizure ( Primary Dx) 07/07/2017 after 05/18/2017 Social History Tobacco Use Types Packs/Day Years [...] Taken Blood Pressure 105/60 04/27/2018 4:49 PM [facility] Pulse 123 04/27/2018 4:49 PM [facility] Temperature 37.9 C (100.3 F) 04/27/2018 4:49 PM [facility] Respiratory Rate 16 04/27/2018 4:49 PM [facility] Oxygen Saturation 96% 04/27/2018 4:49 PM [facility] Inhaled Oxygen Concentration - - Weight 68.5 kg (151 lb) 04/27/2018 3:20 PM [facility] Height 160 cm (5' 3") 04/27/2018 3:20 PM [facility] Body Mass Index 26.75 04/27/2018 3:20 PM [facility] Plan of Treatment Health Maintenance Due Date Last Done Comments CHLAMYDIA SCREENING 2014 INFLUENZA VACCINE 11/25/2017 Procedures Procedure Name Priority Date/Time Associated Comments Diagnosis HCG QUALITATIVE, URINE Routine 04/27/2018 3:56 Results for this SCREEN PM [facility] procedure are in the results section. URINALYSIS SCREEN AND Routine 04/27/2018 3:56 Results for this MICROSCOPY, WITH REFLEX PM [employer] procedure are in TO CULTURE the results section. URINE CULTURE Routine 04/27/2018 3:56 Results for this PM [employer] procedure are in the results section. STREP SCREEN CULTURE STAT 04/27/2018 3:55 Results for this PM [employer] procedure are in the results section. GROUP A STREP, RAPID Routine 04/27/2018 3:54 Results for this ANTIGEN PM [employer] procedure are in the results section. INFLUENZA ANTIGEN Routine 04/27/2018 3:54 Results for this PM [facility] procedure are in the results section. ESTIMATED GFR STAT 04/22/2018 5:17 Results for this PM [facility] procedure are in the results section. CREATINE KINASE, TOTAL STAT 04/22/2018 5:17 Results for this (CPK) PM [facility] procedure are in the results section. BASIC METABOLIC PANEL STAT 04/22/2018 5:17 Results for this PM [facility] procedure are in the results section. HC COMPLETE BLD COUNT STAT 04/22/2018 5:14 Results for this W/AUTO DIFF PM [employer] procedure are in the results section. URINALYSIS SCREEN AND STAT 04/22/2018 4:40 Results for this MICROSCOPY, WITH REFLEX PM [facility] procedure are in TO CULTURE the results section. HCG QUALITATIVE, URINE STAT 04/22/2018 4:40 Results for this SCREEN PM [facility] procedure are in the results section. URINE CULTURE STAT 04/22/2018 4:40 Results for this PM [facility] procedure are in the results section. ESTIMATED [...] procedure are in the results section. after 05/18/2017 Results Urinalysis screen and microscopy, with reflex to culture (04/27/2018 3:56 PM [facility])Only the most recent of6 resultswithin the time period is included. Specimen site Clean catch [facility] Color, UA Yellow [facility] Appearance, UA Cloudy [facility] Specific gravity, UA 1.020 1.001 - 1.035 [facility] pH, UA 7.0 5.0 - 8.5 [facility] Protein, UA Negative Negative [facility] Glucose, UA Negative Negative [facility] Ketones, UA Negative Negative [facility] Bilirubin, UA Negative Negative [facility] Blood, UA Negative Negative [facility] Nitrite, UA Negative Negative [facility] Urobilinogen, UA Negative <2.0 [facility] Leukocyte esterase, UA Negative Negative [facility] Epithelial cells, UA Many /HPF [facility] WBC, UA 1 0 - 5 /HPF [facility] RBC, UA 3 0 - 5 /HPF [facility] Bacteria, UA None seen None seen [facility] Yeast, UA None seen [facility] Yeast with pseudohyphae, UA None seen [facility] Amorphous crystals Few [facility] Specimen Urine Performing Organization Address City/State/Zipcode Phone Number [facility] DEPARTMENT OF PATHOLOGY AND [facility] [place] [address] [facility] [address] [facility] [place] [address] hCG qualitative, urine screen (04/27/2018 3:56 PM [facility])Only the most recent of6 resultswithin the time period is included. hCG qualitative, urine Negative Negative [facility] Comment: [facility] The manufacturers stated sensitivity of HcG test for serum is >/=10 mIU/ml and urine is >/=20mIU/ml. Specimen Urine Performing Organization Address City/[facility] Phone Number [facility] DEPARTMENT OF PATHOLOGY AND [address] [place], [place] [phone] [place] [address] [address] [facility] [place] [address] Urine culture (04/27/2018 3:56 PM [facility])Only the most recent of6 resultswithin the time period is included. Urine culture SEE COMMENTComment: Bacteriuria [facility] negative. HOSPITAL Specimen Urine Performing Organization Address [facility] Phone Number [facility] DEPARTMENT OF PATHOLOGY AND [address] [facility] [place] [address] [facility] [address] [facility] [place] [address] Strep screen culture (04/27/2018 3:55 PM [facility]) Strep screen culture No beta hemolytic Streptococci isolated [facility] isolate Comment: HOSPITAL Specimen Information Specimen Source: Throat Specimen Site: Not otherwise specified Specimen Throat - Not otherwise specified Performing Organization Address City/[facility]/Zipcode Phone Number [facility] DEPARTMENT OF PATHOLOGY AND [address] [place] [address] [address] Group A strep, rapid antigen (04/27/2018 3:54 PM [facility]) Group A strep, rapid Negative for Group A Streptococcus antigen. [facility] antigen result Comment: [facility] Specimen Information Specimen Source: Throat Specimen Site: Not otherwise specified Specimen Throat - Not otherwise specified Performing Organization Address City/State/Zipcode Phone Number [facility] DEPARTMENT OF PATHOLOGY AND [address] [facility] [place] [address] [facility] [address] [facility] [address] [place] [phone] Influenza antigen (04/27/2018 3:54 PM [facility]) Influenza antigen Positive for Influenza A antigen. [facility] Negative for Flu B [facility] (A) Comment: Specimen Information Specimen Source: Nares Specimen Site: Right Specimen Nares - Right Performing Organization Address City/State/Zipcode Phone Number [facility] DEPARTMENT OF PATHOLOGY AND [address] [place] [phone] [place] [address] [address] [place] [phone] Estimated GFR (04/22/2018 5:17 PM [facility])Only the most recent of3 resultswithin the time period is included. Estimated GFR >=90 mL/min/1.73 m2 [facility] Comment: [facility] CatergoryUnitsInterpretation G1 >=90 Normal or high G2 60-89Mildly decreased [id number] to moderately decreased R0b51-87Pscmyhotss to severely decreased G4 15-29Severely decreased G5 <15Kidney failure The eGFR was calculated using the Chronic Kidney Disease Epidemiology Collaboration (CKD-EPI) equation. Interpretation is based on recommendations of the National Kidney Foundation-Kidney Disease Outcomes Quality Initiative (NKF-KDOQI) published in 2014. Specimen Plasma specimen Performing Organization Address City/[facility]/Zipcode Phone Number [facility] DEPARTMENT OF PATHOLOGY AND [address] [place] [phone] [place] [address] [place] [address] [place] [phone] Creatine kinase, total (CPK) (04/22/2018 5:17 PM [facility])Only the most recent of2 resultswithin the time period is included. Creatine kinase 85 26 - 192 U/L [facility] Specimen Plasma specimen Performing Organization Address City/[facility]/Zipcode Phone Number [facility] DEPARTMENT OF PATHOLOGY AND [address] [facility] [address] [place] [phone] [place] [address] [address] [facility] [address] [place] [phone] Basic metabolic panel (04/22/2018 5:17 PM [facility])Only the most recent of4 resultswithin the time period is included. Sodium 144 135 - 150 mEq/L [facility] Potassium 3.9 3.5 - 5.0 mEq/L [facility] Chloride 110 98 - 112 mEq/L [facility] CO2 23 (L) 24 - 31 mmol/L [facility] Anion gap 11@ANIO 7 - 15 mEq/L [facility] BUN 14 7 - 18 mg/dL [facility] Creatinine 0.70 0.50 - 0.90 mg/dL [facility] Glucose 97 65 - 100 mg/dL [facility] Calcium 9.5 8.3 - 10.2 mg/dL [facility] Specimen Plasma specimen Performing Organization Address City/State/Zipcode Phone Number [facility] DEPARTMENT OF PATHOLOGY AND [address] [place] [address] GENOMIC MEDICINE [facility] [address] [place] [address] CBC with platelet and differential (04/22/2018 5:14 PM [facility])Only the most recent of5 resultswithin the time period is included. WBC 8.5 4.5 - 12.5 k/uL [facility] RBC 5.11 4.04 - 5.86 m/uL [facility] HGB 13.8 11.5 - 15.3 g/dL [facility] HCT 42.2 34.0 - 45.0 % [facility] MCV 82.6 80.0 - 98.0 fL [facility] MCH 27.0 27.0 - 34.0 pg [facility] MCHC 32.7 31.5 - 36.5 g/dL [facility] RDW - SD 40.3 37.0 - 51.0 fL [facility] MPV 11.0 (H) 7.4 - 10.4 fL [facility] Platelet count 285 150 - 400 k/uL [facility] Nucleated RBC 0.00 /100 WBC [facility] Neutrophils 68.2 (H) 36.0 - 66.0 % [facility] Lymphocytes 20.6 (L) 24.0 - 44.0 % [facility] Monocytes 6.9 (H) 0.0 - 6.0 % [facility] Eosinophils 3.4 0.0 - 6.0 % [facility] Basophils 0.5 0.0 - 1.2 % [facility] Immature granulocytes 0.4 0.0 - 1.0 % [facility] Specimen Blood Performing Organization Address [facility] Hospitalcomd Phone Number [facility] DEPARTMENT OF PATHOLOGY AND [address] [place] [address] GENOMIC MEDICINE [facility] [address] [place] [address] ECG 12 lead (02/01/2018 10:24 PM CDT)Only the most recent of3 resultswithin the time period is included. Ventricular rate 117 [facility] Atrial rate 117 [facility] NC interval 152 [facility] QRSD interval 88 [...] nt change was found- Performing Organization Address City/[facility] Hospitalcomd Phone Number [facility] MUSE [address] [place] [address] ECG ED Preliminary Interpretation - NOT AN ORDER (02/01/2018 10:15 PM CDT)Only the most recent of3 resultswithin the time period is included. Narrative Performed At Ezequiel Campos DO 02/01/2018 11:39 PM ECG ED Preliminary Interpretation - Not an Order Performed by: EZEQUIEL CAMPOS Authorized by: EZEQUIEL CAMPOS ECG reviewed by ED Physician in the absence of a analytical research chemist: yes Interpretation: Interpretation: abnormal Rate: ECG rate:117 ECG rate assessment: tachycardic Rhythm: Rhythm: sinus tachycardia Ectopy: Ectopy: none QRS: QRS axis:Normal Conduction: Conduction: normal ST segments: ST segments:Normal T waves: T waves: normal Lactic acid level, SEPSIS - Now and repeat 2x every 3 hours (12/16/2017 11:38 AM CDT) Lactic acid 2.2 0.5 - 2.2 mmol/L [facility] DEPARTMENT OF PATHOLOGY AND GENOMIC MEDICINE Specimen Blood Performing Organization Address [facility] Phone Number [facility] DEPARTMENT OF PATHOLOGY AND [address] [place] [address]. [place] [address] [employer] [facility] Estimated GFR (12/16/2017 11:38 AM CDT)Only the most recent of4 resultswithin the time period is included. GFR Non Af Amer >90 mL/min/1.73 m2 [facility] DEPARTMENT OF PATHOLOGY AND GENOMIC MEDICINE GFR Af Amer >90 mL/min/1.73 m2 [facility] DEPARTMENT OF Comment: PATHOLOGY AND GENOMIC Chronic [...] Americans. Specimen Plasma specimen Performing Organization Address [facility]code Phone Number [facility] DEPARTMENT OF PATHOLOGY AND [address] [place] [address] [address] [place], [place] [phone] [place] [address] Lipase level (12/16/2017 11:38 AM CDT) Lipase 27 13 - 60 U/L [facility] DEPARTMENT OF PATHOLOGY AND GENOMIC MEDICINE Specimen Plasma specimen Performing Organization Address City/[facility] Phone Number [facility] DEPARTMENT OF PATHOLOGY AND [address] [place] [address]. [place] [address] 10sec Hepatic function panel (12/16/2017 11:38 AM CDT) Albumin 3.9 3.5 - 5.0 g/dL [facility] DEPARTMENT OF PATHOLOGY AND GENOMIC MEDICINE Total bilirubin 0.3 0.2 - 1.2 mg/dL [facility] DEPARTMENT OF PATHOLOGY AND GENOMIC MEDICINE Bilirubin direct <0.2 0.0 - 0.4 mg/dL [facility] DEPARTMENT OF PATHOLOGY AND GENOMIC MEDICINE Alkaline phosphatase 74 0 - 104 U/L [facility] DEPARTMENT OF PATHOLOGY AND GENOMIC MEDICINE Protein 7.4 6.3 - 8.3 g/dL [facility] DEPARTMENT OF PATHOLOGY AND GENOMIC MEDICINE ALT 13 5 - 50 U/L [facility] DEPARTMENT OF PATHOLOGY AND GENOMIC MEDICINE AST 17 10 - 35 U/L [facility] DEPARTMENT OF PATHOLOGY AND GENOMIC MEDICINE Specimen Plasma specimen Performing Organization Address City/[facility] Phone Number [facility] DEPARTMENT OF PATHOLOGY AND [address] [place] [address] GENOMIC MEDICINE Gram stain (12/10/2017 10:59 PM CDT)Only the most recent of3 resultswithin the time period is included. Gram stain result No WBC's or organisms seen. [facility] DEPARTMENT OF PATHOLOGY Comment: AND GENOMIC MEDICINE Specimen Information Specimen Source: Urine Specimen Site: Clean catch Specimen Urine Performing Organization Address [facility] Phone Number [facility] DEPARTMENT OF PATHOLOGY AND [address] [place] [address] [facility] MEDICINE XR Chest 1 Vw Portable (12/10/2017 10:16 PM CDT) Narrative Performed At EXAMINATION:XR CHEST 1 VW PORTABLE [facility] CLINICAL HISTORY:seizure COMPARISON:04/11/2014 IMPRESSION: Mild prominence of pulmonary interstitial lung markings is suspicious for mild edema or atypical infection. No effusions or pneumothorax. Cardiomediastinal silhouette is within normal limits. No acute osseous abnormalities. [facility]-[id number] Procedure Note [facility], Radiology Results Incoming - 12/10/2017 10:28 PM CDT EXAMINATION: XR CHEST 1 VW PORTABLE CLINICAL HISTORY: seizure COMPARISON: 04/11/2014 IMPRESSION: Mild prominence of pulmonary interstitial lung markings is suspicious for mild edema or atypical infection. No effusions or pneumothorax. Cardiomediastinal silhouette is within normal limits. No acute osseous abnormalities. [facility]-[id number] Performing Organization Address [facility]code Phone Number [facility] [address] [place] [address] Troponin (12/10/2017 9:38 PM CDT) Troponin <0.30 0.00 - 0.30 ng/mL [facility] DEPARTMENT OF PATHOLOGY Comment: AND GENOMIC MEDICINE 0.11 - 1.49 ng/mlMay indicate increased risk of acute coronary syndrome. >=1.5 ng/mlConsistent with acute myocardial infarction. The diagnostic value of a single normal or non-diagnostic result is questionable.Serial samples at 2-6 hour intervals are required to rule out acute myocardial injury. Specimen Plasma specimen Performing Organization Address City/State/Zipcode Phone Number [facility] DEPARTMENT OF PATHOLOGY AND [address] [place] [address]. [address] B natriuretic peptide (12/10/2017 9:38 PM CDT) BNP 9 0 - 100 pg/mL [facility] DEPARTMENT OF PATHOLOGY AND GENOMIC MEDICINE Specimen Blood Performing Organization Address City/[facility]code Phone Number [facility] DEPARTMENT OF PATHOLOGY AND [address] [place] [address]. [address] Comprehensive metabolic panel (12/10/2017 9:38 PM CDT)Only the most recent of3 resultswithin the time period is included. Sodium 143 135 - 150 mEq/L [facility] DEPARTMENT OF PATHOLOGY AND GENOMIC MEDICINE Potassium 3.7 3.5 - 5.0 mEq/L [facility] DEPARTMENT OF PATHOLOGY AND GENOMIC MEDICINE Chloride 110 98 - 112 mEq/L [facility] DEPARTMENT OF PATHOLOGY AND GENOMIC MEDICINE CO2 18 (L) 24 - 31 mmol/L [facility] DEPARTMENT OF PATHOLOGY AND GENOMIC MEDICINE Anion gap 15@ANIO 7 - 15 mEq/L [facility] DEPARTMENT OF PATHOLOGY AND GENOMIC MEDICINE BUN 7 7 - 18 mg/dL [facility] DEPARTMENT OF PATHOLOGY AND GENOMIC MEDICINE Creatinine 0.60 0.50 - 0.90 mg/dL [facility] DEPARTMENT OF PATHOLOGY AND GENOMIC MEDICINE Glucose 101 (H) 65 - 100 mg/dL [facility] DEPARTMENT OF PATHOLOGY AND GENOMIC MEDICINE Calcium 8.9 8.3 - 10.2 mg/dL [facility] DEPARTMENT OF PATHOLOGY AND GENOMIC MEDICINE Protein 7.1 6.3 - 8.3 g/dL [facility] DEPARTMENT OF PATHOLOGY AND GENOMIC MEDICINE Albumin 3.7 3.5 - 5.0 g/dL [facility] DEPARTMENT OF PATHOLOGY AND GENOMIC MEDICINE A/G ratio 1.1 0.7 - 3.8 [facility] DEPARTMENT OF PATHOLOGY AND GENOMIC MEDICINE Alkaline phosphatase 74 0 - 104 U/L [facility] DEPARTMENT OF PATHOLOGY AND GENOMIC MEDICINE AST 15 10 - 35 U/L [facility] DEPARTMENT OF PATHOLOGY AND GENOMIC MEDICINE ALT 11 5 - 50 U/L [facility] DEPARTMENT OF PATHOLOGY AND GENOMIC MEDICINE Total bilirubin <0.3 0.2 - 1.2 mg/dL [facility] DEPARTMENT OF PATHOLOGY AND GENOMIC MEDICINE Specimen Plasma specimen Performing Organization Address City/State/Zipcode Phone Number [facility] DEPARTMENT OF PATHOLOGY AND [address] [place] [address] [facility] Urinalysis, automated with microscopy (08/30/2017 11:54 PM CDT) Color, UA Yellow [facility] DEPARTMENT OF PATHOLOGY AND GENOMIC MEDICINE Appearance, UA Slightly-Cloudy [facility] DEPARTMENT OF PATHOLOGY AND GENOMIC MEDICINE Specific gravity, UA 1.019 1.001 - 1.035 [facility] DEPARTMENT OF PATHOLOGY AND GENOMIC MEDICINE pH, UA 6.0 5.0 - 8.5 [facility] DEPARTMENT OF PATHOLOGY AND GENOMIC MEDICINE Protein, UA Negative Negative [facility] DEPARTMENT OF PATHOLOGY AND GENOMIC MEDICINE Glucose, UA Negative Negative [facility] DEPARTMENT OF PATHOLOGY AND GENOMIC MEDICINE Ketones, UA Negative Negative [facility] DEPARTMENT OF PATHOLOGY AND GENOMIC MEDICINE Bilirubin, UA Negative Negative [facility] DEPARTMENT OF PATHOLOGY AND GENOMIC MEDICINE Blood, UA Negative Negative [facility] DEPARTMENT OF PATHOLOGY AND GENOMIC MEDICINE Nitrite, UA Negative Negative [facility] DEPARTMENT OF PATHOLOGY AND GENOMIC MEDICINE Urobilinogen, UA Negative <2.0 [facility] DEPARTMENT OF PATHOLOGY AND GENOMIC MEDICINE Leukocyte esterase, UA Trace (A) Negative [facility] DEPARTMENT OF PATHOLOGY AND GENOMIC MEDICINE Epithelial cells, UA Many /HPF [facility] DEPARTMENT OF PATHOLOGY AND GENOMIC MEDICINE Round epithelial cells, UA Few 0 - 1 /HPF [facility] DEPARTMENT OF PATHOLOGY AND GENOMIC MEDICINE WBC, UA 11-20 (H) 0 - 4 /HPF [facility] DEPARTMENT OF PATHOLOGY AND GENOMIC MEDICINE RBC, UA 6-10 (H) 0 - 5 /HPF [facility] DEPARTMENT OF PATHOLOGY AND GENOMIC MEDICINE Bacteria, UA Trace None seen [facility] DEPARTMENT OF PATHOLOGY AND GENOMIC MEDICINE Yeast, UA None seen [facility] DEPARTMENT OF PATHOLOGY AND GENOMIC MEDICINE Yeast with pseudohyphae, UA None seen [facility] DEPARTMENT OF PATHOLOGY AND GENOMIC MEDICINE Specimen Urine Performing Organization Address City/State/Zipcode Phone Number [facility] DEPARTMENT OF PATHOLOGY AND [address] [place] [address] [facility] hCG quantitative, serum (08/30/2017 10:30 PM CDT) hCG quantitative, serum <0 0 - 5 mIU/mL [facility] DEPARTMENT OF Comment: PATHOLOGY AND GENOMIC Reference range for HCG Quant applies to males and non- MEDICINE females. Post Menopausal 0.0 - 8.1 mIU/mL Specimen Plasma specimen Performing Organization Address [facility] Phone Number [facility] DEPARTMENT OF PATHOLOGY AND [address] [place] [address] [facility] GFR calculation (08/30/2017 10:20 PM CDT)Only the most recent of2 resultswithin the time period is included. GFR calculation See BelowComment: GFR not [facility] DEPARTMENT OF PATHOLOGY valid on patients less than AND GENOMIC MEDICINE 18 years of age. Specimen Plasma specimen Performing Organization Address [facility] Hospital[facility]d Phone Number [facility] DEPARTMENT OF PATHOLOGY AND [address] [place] [address] [facility] Magnesium level (07/13/2017 10:11 AM CDT) Magnesium 2.20 1.60 - 2.40 mg/dL [facility] DEPARTMENT OF PATHOLOGY AND [facility] Specimen Plasma specimen Performing Organization Address [facility] Phone Number [facility] AND [address] [place] [address] [facility] MED[facility]INE POC glucose (07/07/2017 12:25 AM CDT) POC glucose 130 (H) 65 - 100 mg/dL [facility] Comment: AND [employer] MEDICINE Meter ID: [id number] Area Supervisor: Xavier Womack Performing Organization Address [facility] Phone Number [facility] AND [address] [place] [address] [facility] after 05/18/2017 Advance Directives Patient has advance care planning documents on file. For more information, please contact:Vinny Massey[address] [place] [phone]
--- OUTSIDE RECORDS SUMMARY | 2018-05-19 09:08 | XMS REPORT | Clinical Summary ---
:2000 Author Organization [facility] Address [facility] [place] [address] Care Team Providers Name Role Phone Unavailable [...] 2 tabletIndications: times daily. Seizure levETIRAcetam Take 3 tablets 180 tablet 2 05/18/2018 Active (KEPPRA) 500 mg by mouth 2 9 tabletIndications: times daily Seizure for 90 days. levETIRAcetam TAKE ONE 60 tablet 5 01/10/2016 [...] 3 tablets Seizure in the evening.. levETIRAcetam Take 2 tablets 180 tablet 1 05/10/2018 Discontinued (KEPPRA) 500 mg in the morning 9 tabletIndications: and 3 tablets Seizure in the evening.. Active Problems Problem Noted Date Hx of Seizures 04/22/2018 Routine or child health check 09/12/2010 Overview: 89 09/12/10 9 y/o C. Lulú [place] CP[place] [id number] Abnormal weight gain 09/12/2010 Overview: 09/12/10 Fasting lab work drawn. Information on healthy diet provided. Discussed importance of diet and portion control. Limit high calorie snacks and foods. Regular exercise encouraged. Lulú Steele RN, CPNP [id number] BMI (body mass index), pediatric, 85% to less than 95% for age 0509/12/2010 Hyperpigmentation of skin 09/12/2010 Overview: 09/12/10 Large hyperpigmented macule/birthmark. Referral to dermatology for evaluation/documentation. Lulú Steele [place] CPNP [id number] 09/18/10 Scheduled appointment for patient at [facility] on December 25, 2010 @ 2:00 p.m. Called mom and gave her appointment information and also mailed appointment slip to patient home. Elicia Feliz, [facility] [id number] Encounters Date Type Specialty Care Team Description 05/18/2018 Orders Only Family Practice Crystal Schwartz, Hx of Seizures (Primary Dx) 05/16/2018 E-Consult Neurology Elli Wyatt MD 05/10/2018 Orders Only Family Practice Crystal Schwartz, Hx of Seizures 05/05/2018 Hospital Encounter Crystal Schwartz MD 04/30/2018 Ancillary Procedure Radiology Hx of Seizures 04/30/2018 Travel 04/30/2018 Orders Only Family Practice Crystal Schwartz Seizure (Primary Dx) 04/26/2018 Emergency Emergency Medicine Mango Ortiz Hx of Seizures MD Joe (Primary Dx) 04/26/2018 Travel 04/23/2018 Travel 04/22/2018 Office Visit Family Practice Crystal Schwartz Hx of Seizures ( Primary Dx); Preventative health care 04/22/2018 Travel after 05/18/2017 Immunizations Name Dates Previously Given Next Due [...] Taken Blood Pressure 104/60 04/26/2018 1:51 PM [employer] Pulse 87 04/26/2018 1:51 PM [employer] Temperature 36.7 C (98.1 F) 04/26/2018 1:51 PM [employer] Respiratory Rate 17 04/26/2018 1:51 PM [employer] Oxygen Saturation 100% 04/26/2018 1:51 PM [employer] Inhaled Oxygen Concentration - - Weight 70.1 kg (154 lb 9.6 oz) 04/26/2018 10:26 AM [employer] Height 166.4 cm (5' 5.5") 04/22/2018 1:42 PM [employer] Body Mass Index 25.34 04/22/2018 1:42 PM [employer] Plan of Treatment Date Type Specialty Care Team Description 06/01/2018 Office Visit Neurology Health Maintenance Due Date Last Done Comments IMM Influenza Seasonal Jan to June (>/=19 yrs) 01/25/2018 Procedures Procedure Name Priority Date/Time Associated Diagnosis Comments EEG-ROUTINE Routine 05/05/2018 11:40 Hx of Seizures Results for this AM [employer] procedure are in the results section. MRI BRAIN W AND W/O Routine 04/30/2018 4:00 Hx of Seizures Results for this CONTRAST PM [employer] procedure are in the results section. BMP POC Routine 04/26/2018 11:24 Results for this AM [employer] procedure are in the results section. LEVETIRACETAM Routine 04/23/2018 8:41 Hx of Seizures Results for this AM [employer] procedure are in the results section. MAGNESIUM Routine 04/23/2018 8:41 Hx of Seizures Results for this AM [employer] procedure are in the results section. CBC/DIFF Routine 04/23/2018 8:41 Hx of Seizures Results for this AM [employer] procedure are in the results section. FREE T4 Routine 04/23/2018 8:41 Preventative health Results for this AM [employer] care procedure are in the results section. TSH Routine 04/23/2018 8:41 Preventative health Results for this AM [employer] care procedure are in the results section. HEMOGLOBIN A1C Routine 04/23/2018 8:41 Preventative health Results for this AM [employer] care procedure are in the results section. HIV-1/HIV-2 ROUTINE Routine 04/23/2018 8:41 Preventative health Results for this SCREENING AM [employer] care procedure are in the results section. COMPREHENSIVE Routine 04/23/2018 8:41 Hx of Seizures Results for this METABOLIC PANEL(DBIL AM [employer] procedure are in NOT INCLUDED) the results section. LIPID PROFILE Routine 04/23/2018 8:41 Preventative health Results for this AM [employer] care procedure are in the results section. after 05/18/2017 Results EEG-ROUTINE (05/05/2018 11:40 AM [employer]) Narrative Performed At [facility] EEG Report Generated: 05/05/2018 4:48:37 PM Patient Information ID [id number] Date 05/05/2018 Name CAMACHO CAIN EEG No. 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 Weight Introduction This routine [...] Virginia Sparrow MD Epilepsy Attending Provider ID: [id number] Reviewed User Time Confirmed User Time [email or web address] 05/05/2018 4:54:15 PM [email or web address] 05/05/2018 4:54:22 PM Procedure Note Interface, Eeg-Results - 05/05/2018 4:55 PM [employer] EEG Report Generated: 05/05/2018 4:48:37 PM Patient Information ID [id number] Date 05/05/2018 Name CAMACHO CAIN EEG No. 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 Weight Introduction [...] Virginia Sparrow MD Epilepsy Attending Provider ID: [id number] Reviewed User Time Confirmed User Time [email or web address] 05/05/2018 4:54:15 PM [email or web address] 05/05/2018 4:54:22 PM Performing Organization Address City/State/Zipcode Phone Number [place] [address] Inc[address] [place] [address] MRI BRAIN W AND W/O CONTRAST (04/30/2018 4:00 PM [employer]) Impressions Performed At IMPRESSION: SMS 1.Mild cerebellar [...] Interface, Rad/Mammog In - 05/03/2018 11:54 AM [employer] Exam: MRI of the brain without and [...] Number SMS BMP POC (04/26/2018 11:24 AM [employer]) CO2 POC 22 21 - 32 mmol/L [facility] 1 Chloride POC 108 (H) 98 - 107 mmol/L [facility] 1 Potassium POC 3.6 3.50 - 5.10 [facility] 1 mmol/L Sodium POC 144 136 - 145 mmol/L [facility] 1 Glucose POC 94 74 - 106 mg/dL [facility] 1 Urea Nitrogen POC 10 7 - 18 mg/dL [facility] 1 Creatinine POC 0.6 0.6 - 1.3 mg/dL [facility] 1 Calcium Ionized POC 1.20 1.15 - 1.29 [facility] 1 mmol/L Hemoglobin POC 14.3 12.0 - 16.0 g/dL [facility] 1 Hematocrit POC 42.0 37.0 - 47.0 % [facility] 1 GFR, Estimated >60 mL/min/1.73 m2 [facility] 1 GFR, Estim, Afr-Am >60 mL/min/1.73 m2 [facility] 1 Performing Organization Address [facility] Phone Number MISYS [facility] 1 HIV-1/HIV-2 ROUTINE SCREENING (04/23/2018 8:41 AM [employer]) Pathologist [facility] HIV-1/HIV-2 Negative NEG [facility]IN[facility]ATION 4 Performing Organization Address [facility] Phone Number [facility] 4 HEMOGLOBIN A1C (04/23/2018 8:41 AM [employer]) Pathologist [facility] Hemoglobin A1c 4.9 4.3 - 6.1 % DIAGNOSTIC IMMUNOLOGY Est Average Gluc 93.9 mg/dL DIAGNOSTIC IMMUNOLOGY Specimen Blood Performing Organization Address [facility] Phone Number [facility]ISYS DIAGNOSTIC IMMUNOLOGY COMPREHENSIVE METABOLIC PANEL(DBIL NOT INCLUDED) (04/23/2018 8:41 AM [employer]) Pathologist [facility] Albumin 4.4 3.7 - 5.3 g/dL MAIN[facility]STATION 1 Calcium 9.1 8.6 - 10.3 mg/dL [facility] 1 CO2 21 21 - 31 mmol/L [facility] 1 Chloride 113 (H) 98 - 107 mmol/L [facility] 1 Creatinine 0.60 0.6 - 1.2 [...] MAIN-STATION 1 Specimen Blood Performing Organization Address City/[facility] Phone Number [facility] 1 LEVETIRACETAM (04/23/2018 8:41 AM [employer]) Levetiracetam 48.0 LABORATORY Reference range: 10.0 to 40.0 CORPORATION OF Unit: ug/mL JODI (H) Specimen Blood Performing Organization Address City/[facility] Phone Number [facility] LABORATORY [facility] OF [address] [phone] [address] TSH (04/23/2018 8:41 AM [employer]) TSH 0.80 0.57 - 3.74 uIU/mL [facility]IN[facility] 1 Specimen Blood Performing Organization Address City/[facility] Phone Number [facility] 1 FREE T4 (04/23/2018 8:41 AM [employer]) Free T4 0.93 0.61 - 1.18 BT MAIN-STATION 1 Comment: ng/dl females: 1st Trimester-0.52-1.10 ng/dL 2nd Trimester=0.45-0.99 ng/dL 3rd Trimester=0.48-0.95 ng/dL Specimen Blood Performing Organization Address City/[facility] Phone Number [facility] 1 MAGNESIUM (04/23/2018 8:41 AM [employer]) Magnesium 1.8 (L) 1.9 - 2.7 mg/dL BT MAIN-STATION 1 Specimen Blood Performing Organization Address [facility] Phone Number [facility] MAINSTATION 1 LIPID PROFILE (04/23/2018 8:41 AM [employer]) Cholesterol 193 mg/dL BT MAIN-STATION 1 Comment: REFERENCE RANGE: Desirable: <200 mg/dL Borderline: 200-240 mg/dL High Risk: >240 mg/dL Triglyceride 68 <150 mg/dL BT MAIN-STATION 1 Comment: REFERENCE RANGE: Normal: <150 mg/dL Borderline High: 150-199 mg/dL High: 200-499 mg/dL Very High: >nr=958 mg/dL HDL 70 mg/dL BT MAIN-STATION 1 Comment: Increased CHD risk: <40 mg/dL Decreased CHD risk: >60 mg/dL LDL 109 mg/dL BT MAIN-STATION 1 Comment: REFERENCE RANGE: Optimal: <100 mg/dL Near Optimal: 100-129 mg/dL Borderline High: 130-159 mg/dL High: 160-189 mg/dL Very High: >fk=281 mg/dL Specimen Blood Performing Organization Address [facility] Phone Number [facility] 1 CBC/DIFF (04/23/2018 8:41 AM [employer]) WBC 5.8 4.5 - 11.0 K/uL BT [...] Phone Number MISYS BT MAIN-STATION 2 after 05/18/2017 Insurance Payer Benefit Plan / Subscriber ID Effective Phone Address Type Group Dates [facility] xxxxxxxxxxxx 2018-Prese [phone]ALTH CHOICE CHOICE nt [phone] [place] [address] [place] [id number] WOMEN'S xxxxxxxxx 2017-Prese [phone] HEALTH PROGRAM nt [phone] [place] [address] HCHD PLAN HCHD PLAN 2 xxxxx 2018-01/27 [phone] [phone] 04/2018 [place] [address] Guarantor Name Account Type Relation to Date of Phone Billing Address Patient Lakisha Rdz Personal/Famil Mother 07/24/1965 [address] F. y (Home) [place] [id number] Camacho Cain Ernie Self 2000 [phone] [address] (Home) [place] [address]
--- OUTSIDE RECORDS SUMMARY | 2018-05-19 09:08 | XMS REPORT ---
:2000 [facility] Address [address] [place] [address] Care Team Providers Name Role Phone Unavailable Unavailable Unavailable Problems This patient has no known problems. Allergies, Adverse Reactions, Alerts This patient has no known allergies or adverse reactions. Medications This patient has no known medications. Encounters Start End Encounter Admission Attending Care Care Encounter Date/Time Date/Time Type Type Clinicians Facility Department ID 2018-06-01 2018-06-01 Outpatient [facility] [id number] 00:00:00 00:00:00 2018-05-05 2018-05-05 Outpatient [facility] [id number] 10:29:53 10:29:53 2018-04-30 2018-04-30 Outpatient [facility] [id number] 14:42:54 14:42:54 2018-04-26 2018-04-26 Emergency [facility] [id number] 10:33:37 10:33:37 2018-04-23 2018-04-23 Outpatient [facility] [id number] 08:47:26 08:47:26
[2018-05-19 10:59] LABS: Urine Blood NEGATIVE (NEG); Urine Glucose NEGATIVE (NEG); Urine Protein 1+ (NEG); Urine Specific Gravity 1.025 (1.005-1.030)
--- NOTE | 2018-05-19 11:04 | EDPHYS ---
Physician Documentation [facility] Name: Saloni Malin Age: 17 yrs Sex: Female : 2000 Arrival Date: 05/19/2018 Time: 09:11 Bed 5 Private MD: ED Physician Pawel Ramachandran HPI: 05/19 09:19 This 17 yrs old Female presents to ER via EMS with complaints of Seizure. rn 09:19 The patient presents after having a single isolated seizure. Character of seizure(s): rn Motor activity: generalized, Incontinence: none, Apnea: the patient did not experience apnea, Circulation: the patient did not experience evidence of pulse disturbance. Seizure onset: just prior to arrival. Associated injury: The patient did not suffer any apparent associated injury. Current symptoms: Currently, the patient is not experiencing any symptoms. The patient has experienced similar episodes in the past. The patient has been recently seen at the [facility] Emergency Department. 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 No fever. Mild headache. No focal neurological symptoms. . 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 - Social history:: Smoking status: . - Ebola Screening: : Patient denies travel to an Ebola-affected area in the 21 days before illness onset. - Family history:: not pertinent. - Hospitalizations: : No recent hospitalization is reported. ROS: 09:19 Constitutional: Negative for fever, chills, and weight loss, Eyes: Negative for injury, rn pain, redness, and discharge, Neck: Negative for injury, pain, and swelling, Cardiovascular: Negative for chest pain, palpitations, and edema, Respiratory: Negative for shortness of breath, cough, wheezing, and pleuritic chest pain, Abdomen/GI: Negative for abdominal pain, nausea, vomiting, diarrhea, and constipation, MS/Extremity: Negative for injury and deformity, Skin: Negative for injury, rash, and discoloration, Neuro: Negative for weakness, numbness, tingling Exam: 09:19 Constitutional: This is a well developed, well nourished patient who is awake, alert, rn and in no acute distress. Head/Face: Normocephalic, atraumatic. Eyes: Pupils equal round and reactive to light, extra-ocular motions intact. Lids and lashes normal. Conjunctiva and sclera are non-icteric and not injected. Cornea within normal limits. Periorbital areas with no swelling, redness, or edema. Neck: Trachea midline, no thyromegaly or masses palpated, and no cervical lymphadenopathy. Supple, full range of motion without nuchal rigidity, or vertebral point tenderness. No Meningismus. Cardiovascular: Regular rate and rhythm. No pulse deficits. Respiratory: Lungs have equal breath sounds bilaterally, clear to auscultation. No increased work of breathing, no retractions or nasal flaring. Abdomen/GI: Soft, non-tender MS/ Extremity: Pulses equal, no cyanosis. Neurovascular intact. Full, normal range of motion. Equal circumference. Neuro: Awake and alert, GCS 15, oriented to person, place, time, and situation. Cranial nerves II-XII grossly intact. Motor strength 5/5 in all extremities. Sensory grossly intact. Vital Signs: 09:11 BP 112 / 75; Pulse 112; Resp 19; Temp 97.7(O); Pulse Ox 100% on R/A; tw2 09:21 Weight 68.49 kg; Height 5 ft. 3 in. (160.02 cm); jl7 11:33 BP 115 / 70; Pulse 93; Resp 16 S; Pulse Ox 100% on R/A; jl7 09:21 Body Mass Index 26.75 (68.49 kg, 160.02 cm) jl7 Sabas Coma Score: 09:18 Eye Response: spontaneous(4). Verbal Response: oriented(5). Motor Response: obeys jl7 commands(6). Total: 15. MDM: 09:11 Patient medically screened. rn 11:02 Differential diagnosis: seizure. Data reviewed: vital signs, nurses notes, lab test rn result(s), EKG, and as a result, I will discharge patient. Counseling: I had a detailed discussion with the patient and/or guardian regarding: the historical points, exam findings, and any diagnostic results supporting the discharge/admit diagnosis, lab results, the need for outpatient follow up, to return to the emergency department if symptoms worsen or persist or if there are any questions or concerns that arise at home. Response to treatment: the patient's symptoms have resolved after treatment, the patient's condition has returned to base line, the patient is now symptom free, and as a result, I will discharge patient. Special discussion: I discussed with the patient/guardian in detail that at this point there is no indication for admission to the hospital. It is understood, however, that if the symptoms persist or worsen the patient needs to return immediately for re-evaluation. 05/19 09:44 Order name: Urine Dipstick--Ancillary (enter results); Complete Time: 11: bd 05/19 09:44 Order name: Urine --Ancillary (enter results); Complete Time: 11: bd 05/19 09:12 Order name: Urine Dipstick-Ancillary (obtain specimen); Complete Time: 09:30 rn 05/19 09:12 Order name: Urine Test (obtain specimen); Complete Time: 09:30 rn 05/19 09:12 Order name: Glucose Level; Complete Time: 09:31 rn 05/19 09:13 Order name: EKG; Complete Time: 09:14 rn 05/19 09:13 Order name: EKG - Nurse/Tech; Complete Time: 09:21 rn Administered Medications: No medications were administered Point of Care Testing: Blood Glucose: : Blood Glucose: 116 mg/dL; jl7 Ranges: Critical Glucose Levels:Adult <50 mg/dl or >400 mg/dl <40 mg/dl or >180 mg/dl Disposition: 05/19/18 11:03 Discharged to Home. Impression: Epilepsy and recurrent seizures. - Condition is Stable. - Discharge Instructions: Seizure, Adult. - Medication Reconciliation Form, Thank You Letter, Antibiotic Education, Prescription Opioid Use form. - Follow up: Private Physician; When: As needed; Reason: Recheck today's complaints, Re-evaluation by your physician. - Problem is new. - Symptoms have improved. Signatures: Dispatcher [employer] EDMS Pawel Ramachandran MD MD rn Clare Escobar RN RN tw2 Peri Fox RN RN jl7 Corrections: (The following items were deleted from the chart) 11:37 11:03 05/19/2018 11:03 Discharged to Home. Impression: Epilepsy and recurrent seizures. jl7 Condition is Stable. Forms are Medication Reconciliation Form, Thank You Letter, Antibiotic Education, Prescription Opioid Use. Follow up: Private Physician; When: As needed; Reason: Recheck today's complaints, Re-evaluation by your physician. Problem is new. Symptoms have improved. rn
--- NOTE | 2018-05-19 11:04 | ER ---
Nurse's Notes [facility] Name: Saloni Malin Age: 17 yrs Sex: Female : 2000 Arrival Date: 05/19/2018 Time: 09:11 Bed 5 Private MD: Diagnosis: Epilepsy and recurrent seizures Presentation: 05/19 09:12 Presenting complaint: EMS states: Witnessed seizure at 0800, hx of epilepsy, initially jl7 postictal, currently A\T\Ox4. Transition of care: patient was not received from another setting of care. Onset of symptoms was May 19, 2018. Risk Assessment: Do you want to hurt yourself or someone else? Patient reports no desire to harm self or others. Initial Sepsis Screen: Does the patient meet any 2 criteria? No. Patient's initial sepsis screen is negative. Does the patient have a suspected source of infection? No. Patient's initial sepsis screen is negative. Care prior to arrival: None. 09:12 Method Of Arrival: EMS: [facility] 7 09:12 Acuity: KEVAN 3 jl7 Triage Assessment: 09:18 General: Appears in no apparent distress. uncomfortable, Behavior is calm, cooperative, jl7 appropriate for age. Pain: Denies pain. EENT: No signs and/or symptoms were reported regarding the EENT system. Neuro: Level of Consciousness is awake, alert, obeys commands, Oriented to person, place, time, situation, Moves all extremities. Gait is steady, Speech is normal. Cardiovascular: Patient's skin is warm and dry. Respiratory: Airway is patent Respiratory effort is even, unlabored, Respiratory pattern is regular, symmetrical. GI: No signs and/or symptoms were reported involving the gastrointestinal system. : No signs and/or symptoms were reported regarding the genitourinary system. Derm: Skin is pink, warm \T\ dry. Musculoskeletal: No signs and/or symptoms reported regarding the musculoskeletal system. 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 - Social history:: Smoking status: . - Ebola Screening: : Patient denies travel to an Ebola-affected area in the 21 days before illness onset. - Family history:: not pertinent. - Hospitalizations: : No recent hospitalization is reported. Screenin:20 Abuse screen: Denies threats or abuse. Denies injuries from another. Nutritional jl7 screening: No deficits noted. Tuberculosis screening: No symptoms or risk factors identified. Fall Risk Secondary diagnosis (15 points) seizures, Total Nuñez Fall Scale indicates No Risk (0-24 pts). Assessment: 09:20 General: See triage assessment. jl7 10:30 Reassessment: Patient appears in no apparent distress at this time. No changes from jl7 previously documented assessment. Patient and/or family updated on plan of care and expected duration. Pain level reassessed. Patient is alert, oriented x 3, equal unlabored respirations, skin warm/dry/pink. 11:35 Reassessment: Nits noticed in pt's hair, upon discharge pt instructed that the lice jl7 need to be treated and that they will not go away without treatment. Pt verbalized understanding. Vital Signs: 09:11 BP 112 / 75; Pulse 112; Resp 19; Temp 97.7(O); Pulse Ox 100% on R/A; tw2 09:21 Weight 68.49 kg; Height 5 ft. 3 in. (160.02 cm); jl7 11:33 BP 115 / 70; Pulse 93; Resp 16 S; Pulse Ox 100% on R/A; jl7 09:21 Body Mass Index 26.75 (68.49 kg, 160.02 cm) jl7 [place] Coma Score: 09:18 Eye Response: spontaneous(4). Verbal Response: oriented(5). Motor Response: obeys jl7 commands(6). Total: 15. ED Course: 09:11 Patient arrived in ED. mr 09:11 Chary Hollis FNP-C [facility]. snw 09:11 aPwel Ramachandran MD is Attending Physician. snw 09:12 Peri Fox RN is Primary Nurse. jl7 09:12 Arm band placed on. tw2 09:15 monitoring and evaluation advisor on. Pulse ox on. NIBP on. jl7 09:17 Triage completed. jl7 09:20 Patient has correct armband on for positive identification. Placed in gown. Bed in low jl7 position. Call light in reach. Side rails up X 1. Seizure precautions initiated. 09:20 Urine collected:. jl7 09:30 EKG done, by zoology technical officer. reviewed by Pawel Ramachandran MD. at1 11:33 No provider procedures requiring assistance completed. Patient did not have IV access jl7 during this emergency room visit. Administered Medications: No medications were administered Point of Care Testing: Blood Glucose: :31 Blood Glucose: 116 mg/dL; jl7 Ranges: Outcome: 11:03 Discharge ordered by . rn 11:33 Discharged to home ambulatory. jl7 11:33 Condition: stable 11:33 Discharge instructions given to patient, family, Instructed on discharge instructions, follow up and referral plans. Demonstrated understanding of instructions, follow-up care. 11:37 Patient left the ED. jl7 Signatures: Chary Hollis, BAG SEWER-C BAG SEWER-Csnw ConradRolanda Roman, MD MD rn Gonzales, Amanda, lathe operator EKG Tat1 Clare Escobar RN RN tw2 Peri Fox RN RN jl7
--- NOTE | 2018-05-19 19:47 | EKG ---
Test Date: 2018-05-19 Test Time: 09:19:49 Supply Clerk: KEVIN MEASUREMENT RESULTS: Intervals: Rate: 111 OK: 162 QRSD: 86 QT: 346 QTc: 470 [place]: P: 59 OK: 162 QRS: -5 T: 47 INTERPRETIVE STATEMENTS: Sinus tachycardia Otherwise normal ECG Compared to ECG 05/12/2018 09:31:29 Sinus rhythm no longer present Sinus arrhythmia no longer present Incomplete right bundle-branch block no longer present Electronically Signed On 05-19-18 19:45:40 FOXING CLOSER by Dominguez Ascencio
== END 2018-05-19 11:37 | disposition home or self-care (01) ==
LOC: ER 09:05
DX: G40.909 Epilepsy, unspecified, not intractable, without status epilepticus (principal); Z79.899 Other long term (current) drug therapy
CPT/HCPCS: 81003; 81025; 82962; 93005; 99284